=== PATIENT | female | born 1970 | race Caucasian/White ===

== ENCOUNTER 2016-06-27 18:29 | Emergency (ER) ==
[2016-06-27 18:36] VITALS: BP 135/73; TEMP 96.7; BMI 31.1
[2016-06-27] MEDS ORDERED: BENADRYL IM STA (18:48)
[2016-06-27] MEDS ORDERED: PHENERGAN 25 MG/ML VIAL IM STA (18:48)
[2016-06-27] MEDS ORDERED: DILAUDID 2 MG/ML SYRINGE IM STA (18:48)
--- NOTE | 2016-06-27 18:52 | ED.PDOC ---
General ED Provider: Dr. RIKA WILLIAM-ER Chief Complaint: Headache Stated Complaint: ibjorge got a migraine cabezas--it started this am Time Seen by Physician: 18:50 Mode of Arrival: Walk-In Information Source: Patient, Family Exam Limitations: No limitations Primary Care Provider: JEB KIRK Nursing and Triage Documentation Reviewed and Agree: Yes Neurological Complaint Exam - Headache Complaint/Exam Onset: Gradual Duration: 12hrs Symptoms Are: Still present Timing: Constant Worst Headache Ever: No Initial Severity: Moderate Current Severity: Moderate Location: Diffuse Character: Reports: Dull, Throbbing, Pressure, Typical headache, Migraine Aggravating: Reports: Bright lights Alleviating: Reports: None Associated Signs and Symptoms: Reports: Nausea, Vomiting Related History: Reports: Similar episode. Denies: Recent trauma, Remote trauma Related Surgical History: Reports: None SAH Risk Factors: Reports: None Meningitis Risk Factors: Reports: None Temporal Arteritis Risk Factors: Reports: Female, Normal Head CT Within Last 12 Months: Yes Fundoscopic Exam: Present: Normal Findings Papilledema Present: No Temporal Artery Tenderness: Present: None Sinus Tenderness: Present: None TMJ Tenderness: Present: None Glascow Coma Scale (see protocol): 15 Meningeal Signs Positive: No Pain on Passive Flexion-Positive Kernig's: No ROM Limited In: No Limitiations Focal Weakness: Present: None Focal Sensory Loss: Present: None Gait: Normal Nystagmus Present: No Gag Reflex Present: Yes [id number]: Normal Findings Romberg Test Positive: No Babinski Sign: Negative Right, Negative Left Heel to Toe Normal: Yes Differential Diagnoses: Migraine Review of Systems - Review Of Systems Constitutional: Reports: No symptoms Eyes: Reports: No symptoms Ears, Nose, Mouth, Throat: Reports: No symptoms Respiratory: Reports: No symptoms Cardiac: Reports: No symptoms GI: Reports: No symptoms : Reports: No symptoms Musculoskeletal: Reports: No symptoms Skin: Reports: No symptoms Neurological: Reports: Headache Endocrine: Reports: No symptoms Hematologic/Lymphatic: Reports: No symptoms All Other Systems: Reviewed and Negative Past Medical History - Past Medical History Previously Healthy: No Endocrine: Reports: Hypothyroid Cardiovascular: Reports: Hypertension Respiratory: Reports: COPD, Asthma Hematological: Reports: None Gastrointestinal: Reports: GERD (nexium ), Pancreatitis (stents with pancreatitis-chronic pancreatitis) Genitourinary: Reports: None Neuro/Psych: Reports: Migraine, Anxiety. Denies: Depression (fluoxetine) Musculoskeletal: Reports: Back Pain, Other (soma phenergan) Cancer: Reports: None Last Menstrual Period: 2009 Other Pertinent Past Medical History: Chronic back pain ,intrathecal pain pump and removal - Surgical History General Surgical History: Reports: Hysterectomy, , Cholecystectomy, Orthopedic (bilat. feet surg), Other (stents with pancreatitis-chronic pancreatitis) - Family History Family History: Reports: None - Social History Smoking Status: Never smoker Hx Substance Use: No Alcohol Screening: Occasionally Lives: With family - Immunizations Tetanus Shot up to Date: Yes Physical Exam - Physical Exam Appearance: Well-appearing, No pain distress, Well-nourished Eyes: PAULINO ENT: Ears normal Neck: Supple Respiratory: Airway patent, Breath sounds clear, Breath sounds equal, Respirations nonlabored Cardiovascular: RRR GI/: Soft, Nontender, No masses, Bowel sounds normal, No Organomegaly Musculoskeletal: Normal strength, ROM intact, No edema, No calf tenderness Skin: Warm, Dry, Normal color Neurological: Sensation intact, Alert, Oriented Psychiatric: Affect appropriate Re-Evaluation - Re-Evaluation Time of Re-Evaluation: 19:15 Status: Unchanged Vital Signs Stable: Yes Pain Level: 1 Appearance: NAD Lungs: Clear Skin: Warm and Dry Neuro: Alert and Oriented X3 CV: RRR Critical Care Note - Critical Care Note Total Time (mins): 0 Course - Course Orders, Labs, Meds: Orders Category Date Time Status Diphenhydramine Inj [Benadryl] MEDS 06/27/16 18:48 Stat 25 mg IM ONCE STA Hydromorphone HCl/Pf [Dilaudid 2 mg/ml Syringe] MEDS 06/27/16 18:48 Stat 2 mg IM ONCE STA Promethazine HCl [Phenergan 25 mg/ml Vial] MEDS 06/27/16 18:48 Stat 25 mg IM ONCE STA Medications Generic Name Dose Route Start Last Admin Trade Name Freq PRN Reason Stop Dose Admin Diphenhydramine HCl 25 mg 06/27/16 18:48 Benadryl IM 06/27/16 18:49 ONCE STA Hydromorphone HCl 2 mg 06/27/16 18:48 Dilaudid 2 Mg/Ml Syringe IM 06/27/16 18:49 ONCE STA Promethazine HCl 25 mg 06/27/16 18:48 Phenergan 25 Mg/Ml Vial IM 06/27/16 18:49 ONCE STA Vital Signs: Temp Pulse Resp BP Pulse Ox 06/27/16 18:30 96.7 F L 113 H 20 135/73 93 L Departure - Departure Time of Disposition: 18:52 Disposition: HOME SELF-CARE Discharge Problem: Migraine Qualifiers: Migraine type: unspecified Status migrainosus presence: without status migrainosus Intractability: not intractable Qualifier Code: (G43.909) Migraine, unspecified, not intractable, without status migrainosus Instructions: Migraine Headache (ED) Condition: Good Pt referred to PMD for follow-up: Yes Additional Instructions: f/'u with pcp Allergies/Adverse Reactions: Allergies divalproex sodium [From Depakote] Adverse Reaction (Verified 06/27/16 18:38) ketorolac [From Toradol] Adverse Reaction (Verified 06/27/16 18:38) metoclopramide HCl [From Reglan] Adverse Reaction (Verified 06/27/16 18:38) Home Medications: Ambulatory Orders Carisoprodol [Soma] 350 mg PO PRN PRN 02/02/15 Promethazine HCl [Phenergan Tab] 50 mg PO PRN PRN 02/02/15 Amitriptyline HCl [Elavil] 100 mg PO DAILY 06/27/16 Disposition Discussed With: Patient, Family
== END 2016-06-27 19:29 | disposition home or self-care (01) ==
LOC: ED 18:29
DX: G43.909 Migraine, unspecified, not intractable, without status migrainosus (principal)
CPT/HCPCS: 96372; 99282; 99283

== ENCOUNTER 2016-07-19 12:53 | Emergency (ER) ==
[2016-07-19 12:59] VITALS: BP 128/95; TEMP 97.6; BMI 30.7
[2016-07-19] MEDS ORDERED: BENADRYL IM STA (13:08)
[2016-07-19] MEDS ORDERED: PHENERGAN 25 MG/ML VIAL IM STA (13:08)
[2016-07-19] MEDS ORDERED: DILAUDID 2 MG/ML SYRINGE IM STA (13:08)
--- NOTE | 2016-07-19 13:12 | ED.PDOC ---
General ED Provider: Dr. RIKA WILLIAM-ER Chief Complaint: Headache Stated Complaint: george got a migraine Time Seen by Physician: 12:55 Mode of Arrival: Walk-In Information Source: Patient, Family Exam Limitations: No limitations Primary Care Provider: JEB KIRK Nursing and Triage Documentation Reviewed and Agree: Yes Neurological Complaint Exam - Headache Complaint/Exam Onset: Gradual Duration: several hours Symptoms Are: Still present Timing: Constant Episodes Lasting: Hours Worst Headache Ever: No Initial Severity: Mild Current Severity: Moderate Location: Diffuse Character: Reports: Dull, Throbbing, Pressure, Typical headache, Migraine Aggravating: Reports: Bright lights Alleviating: Reports: None Associated Signs and Symptoms: Reports: Nausea, Vomiting. Denies: Dizziness, Seizure, Sinus pressure, Fever, Neck pain, Neck stiffness, Decreased LOC, Visual changes Related History: Reports: Similar episode Related Surgical History: Reports: None SAH Risk Factors: Reports: None Meningitis Risk Factors: Reports: None SDH Risk Factors: Reports: None Temporal Arteritis Risk Factors: Reports: Female Normal Head CT Within Last 12 Months: Yes Fundoscopic Exam: Present: Normal Findings Papilledema Present: No Temporal Artery Tenderness: Present: None Sinus Tenderness: Present: None TMJ Tenderness: Present: None Glascow Coma Scale (see protocol): 15 Meningeal Signs Positive: No Pain on Passive Flexion-Positive Kernig's: No ROM Limited In: No Limitiations Focal Weakness: Present: None Focal Sensory Loss: Present: None Gait: Normal Nystagmus Present: No Gag Reflex Present: Yes [id number]: Normal Findings Romberg Test Positive: No Babinski Sign: Negative Right, Negative Left Heel to Toe Normal: Yes Differential Diagnoses: Migraine Review of Systems - Review Of Systems Constitutional: Reports: No symptoms Eyes: Reports: No symptoms Ears, Nose, Mouth, Throat: Reports: No symptoms Respiratory: Reports: No symptoms Cardiac: Reports: No symptoms GI: Reports: Nausea, Vomiting : Reports: No symptoms Musculoskeletal: Reports: No symptoms Skin: Reports: No symptoms Neurological: Reports: Headache Endocrine: Reports: No symptoms Hematologic/Lymphatic: Reports: No symptoms All Other Systems: Reviewed and Negative Past Medical History - Past Medical History Previously Healthy: No Endocrine: Reports: Hypothyroid Cardiovascular: Reports: Hypertension Respiratory: Reports: COPD, Asthma Hematological: Reports: None Gastrointestinal: Reports: GERD (nexium ), Pancreatitis (stents with pancreatitis-chronic pancreatitis) Genitourinary: Reports: None Neuro/Psych: Reports: Migraine, Anxiety. Denies: Depression (fluoxetine) Musculoskeletal: Reports: Back Pain, Other (soma phenergan) Cancer: Reports: None Last Menstrual Period: 2009 Other Pertinent Past Medical History: Chronic back pain ,intrathecal pain pump and removal - Surgical History General Surgical History: Reports: Hysterectomy, , Cholecystectomy, Orthopedic (bilat. feet surg), Other (stents with pancreatitis-chronic pancreatitis) - Family History Family History: Reports: None - Social History Smoking Status: Never smoker Hx Substance Use: No Alcohol Screening: Occasionally - Immunizations Tetanus Shot up to Date: Yes Physical Exam - Physical Exam Appearance: Well-appearing Pain Distress: Moderate Eyes: PAULINO, EOMI, Conjunctiva clear ENT: Ears normal, Nose normal, Oropharynx normal Neck: Supple Respiratory: Airway patent, Breath sounds clear, Breath sounds equal, Respirations nonlabored Cardiovascular: RRR, Pulses normal, No rub, No murmur GI/: Soft, Nontender, No masses, Bowel sounds normal, No Organomegaly Musculoskeletal: Normal strength, ROM intact, No edema, No calf tenderness Skin: Warm, Dry, Normal color Neurological: Sensation intact, Motor intact, Reflexes intact, Cranial nerves intact, Alert, Oriented Psychiatric: Affect appropriate, Mood appropriate Re-Evaluation - Re-Evaluation Time of Re-Evaluation: 13:40 Status: Improved Vital Signs Stable: Yes Pain Level: 2 Appearance: NAD Lungs: Clear Skin: Warm and Dry Neuro: Alert and Oriented X3 CV: RRR Critical Care Note - Critical Care Note Total Time (mins): 0 Course - Course Orders, Labs, Meds: Orders Category Date Time Status Diphenhydramine Inj [Benadryl] MEDS 07/19/16 13:08 Discontinued 50 mg IM ONCE STA Hydromorphone HCl/Pf [Dilaudid 2 mg/ml Syringe] MEDS 07/19/16 13:08 Discontinued 2 mg IM ONCE STA Promethazine HCl [Phenergan 25 mg/ml Vial] MEDS 07/19/16 13:08 Discontinued 25 mg IM ONCE STA Medications Discontinued Medications Generic Name Dose Route Start Last Admin Trade Name Freq PRN Reason Stop Dose Admin Diphenhydramine HCl 50 mg 07/19/16 13:08 Benadryl IM 07/19/16 13:09 ONCE STA Hydromorphone HCl 2 mg 07/19/16 13:08 Dilaudid 2 Mg/Ml Syringe IM 07/19/16 13:09 ONCE STA Promethazine HCl 25 mg 07/19/16 13:08 Phenergan 25 Mg/Ml Vial IM 07/19/16 13:09 ONCE STA Vital Signs: Temp Pulse Resp BP Pulse Ox 07/19/16 12:53 97.6 F 96 H 20 128/95 H 96 Departure - Departure Time of Disposition: 13:14 Disposition: HOME SELF-CARE Discharge Problem: Migraine Qualifiers: Migraine type: other Status migrainosus presence: without status migrainosus Intractability: not intractable Qualifier Code: (G43.809) Other migraine, not intractable, without status migrainosus Instructions: Migraine Headache (ED) Condition: Good Pt referred to PMD for follow-up: Yes Additional Instructions: f/u wtih pcp Allergies/Adverse Reactions: Allergies divalproex sodium [From Depakote] Adverse Reaction (Verified 06/27/16 18:38) ketorolac [From Toradol] Adverse Reaction (Verified 06/27/16 18:38) metoclopramide HCl [From Reglan] Adverse Reaction (Verified 06/27/16 18:38) Home Medications: Ambulatory Orders Carisoprodol [Soma] 350 mg PO PRN PRN 02/02/15 Promethazine HCl [Phenergan Tab] 50 mg PO PRN PRN 02/02/15 Amitriptyline HCl [Elavil] 100 mg PO DAILY 06/27/16 Disposition Discussed With: Patient, Family
== END 2016-07-19 14:06 | disposition home or self-care (01) ==
LOC: ED 12:53
DX: G43.809 Other migraine, not intractable, without status migrainosus (principal)
CPT/HCPCS: 96372; 99283

== ENCOUNTER 2016-08-01 20:00 | Emergency (ER) ==
[2016-08-01 20:00] VITALS: BMI 30.7
[2016-08-01 20:04] VITALS: BP 132/89
[2016-08-01 20:08] VITALS: TEMP 97.2
[2016-08-01] MEDS ORDERED: STADOL IM STA (20:37)
[2016-08-01] MEDS ORDERED: PHENERGAN 25 MG/ML VIAL IM STA (20:37)
--- NOTE | 2016-08-01 20:42 | ED.PDOC ---
General ED Provider: Dr. JACE PALAFOX Chief Complaint: Headache Stated Complaint: Patient is a 46 year old female who comes to the ER with Headaches that started this evening. She has had problems sleeping and was seen by her PCP but was not given any thing for headache. She was given Doxepin for insomnia. Feels like her typical Migraine. Time Seen by Physician: 20:41 Mode of Arrival: Walk-In Information Source: Patient Exam Limitations: No limitations Primary Care Provider: JEB KIRK Nursing and Triage Documentation Reviewed and Agree: Yes Neurological Complaint Exam - Headache Complaint/Exam Onset: Gradual Duration: 1 day Symptoms Are: Still present Timing: Constant Worst Headache Ever: No Initial Severity: Moderate Current Severity: Severe Location: Right, Left, Frontal Character: Reports: Dull, Throbbing Aggravating: Reports: Bright lights Alleviating: Reports: None Associated Signs and Symptoms: Denies: Dizziness, Seizure, Nausea, Vomiting, Sinus pressure, Fever, Neck pain, Neck stiffness, Decreased LOC, Visual changes Related History: Reports: Similar episode Related Surgical History: Reports: None SAH Risk Factors: Reports: None Meningitis Risk Factors: Reports: None SDH Risk Factors: Reports: None Temporal Arteritis Risk Factors: Reports: Female, . Denies: Over 60 years old, Polymyalgia Rheumatica Normal Head CT Within Last 12 Months: Yes (1 year ago ) Fundoscopic Exam: Present: Normal Findings Papilledema Present: Yes Temporal Artery Tenderness: Present: None Sinus Tenderness: Present: None TMJ Tenderness: Present: None Glascow Coma Scale (see protocol): 15 Meningeal Signs Positive: No Pain on Passive Flexion-Positive Kernig's: No ROM Limited In: No Limitiations Focal Weakness: Present: None Focal Sensory Loss: Present: None Gait: Normal Nystagmus Present: No Gag Reflex Present: No [id number]: Normal Findings Romberg Test Positive: No Babinski Sign: Negative Right, Negative Left Heel to Toe Normal: No Differential Diagnoses: Migraine, Sinus Headache, Tension Headache, Viral Syndrome Review of Systems - Review Of Systems Constitutional: Reports: No symptoms Eyes: Reports: Pain, Photophobia Ears, Nose, Mouth, Throat: Reports: No symptoms Respiratory: Reports: No symptoms Cardiac: Reports: No symptoms GI: Reports: No symptoms : Reports: No symptoms Musculoskeletal: Reports: No symptoms Skin: Reports: No symptoms Neurological: Reports: Anxiety Endocrine: Reports: No symptoms Hematologic/Lymphatic: Reports: No symptoms All Other Systems: Reviewed and Negative Past Medical History - Past Medical History Previously Healthy: No Endocrine: Reports: Hypothyroid Cardiovascular: Reports: Hypertension Respiratory: Reports: COPD, Asthma Hematological: Reports: None Gastrointestinal: Reports: GERD (nexium ), Pancreatitis (stents with pancreatitis-chronic pancreatitis) Genitourinary: Reports: None Neuro/Psych: Reports: Migraine, Anxiety. Denies: Depression (fluoxetine) Musculoskeletal: Reports: Back Pain, Other (soma phenergan) Cancer: Reports: None Last Menstrual Period: NONE Other Pertinent Past Medical History: Chronic back pain ,intrathecal pain pump and removal - Surgical History General Surgical History: Reports: Hysterectomy, , Cholecystectomy, Orthopedic (bilat. feet surg), Other (stents with pancreatitis-chronic pancreatitis) - Family History Family History: Reports: None - Social History Smoking Status: Never smoker Hx Substance Use: No Alcohol Screening: Occasionally Physical Exam - Physical Exam Appearance: Ill-appearing Pain Distress: Moderate Eyes: PAULINO, EOMI, Conjunctiva clear ENT: Ears normal, Nose normal, Oropharynx normal Neck: Supple Respiratory: Airway patent, Breath sounds clear, Breath sounds equal, Respirations nonlabored Cardiovascular: RRR, Pulses normal, No rub, No murmur GI/: Soft, Nontender, No masses, Bowel sounds normal, No Organomegaly Musculoskeletal: Normal strength, ROM intact, No edema, No calf tenderness Skin: Warm, Dry, Normal color Neurological: Sensation intact, Motor intact, Reflexes intact, Cranial nerves intact, Alert, Oriented Psychiatric: Anxious Re-Evaluation - Re-Evaluation Time of Re-Evaluation: 21:41 Status: Improved Vital Signs Stable: Yes Pain Level: improved Critical Care Note - Critical Care Note Total Time (mins): 0 Course - Course Orders, Labs, Meds: Orders Category Date Time Status Butorphanol Tartrate [Stadol] MEDS 08/01/16 20:37 Discontinued 2 mg IM ONCE STA Promethazine HCl [Phenergan 25 mg/ml Vial] MEDS 08/01/16 20:37 Discontinued 25 mg IM ONCE STA Medications Discontinued Medications Generic Name Dose Route Start Last Admin Trade Name Freq PRN Reason Stop Dose Admin Butorphanol Tartrate 2 mg 08/01/16 20:37 08/01/16 20:48 Stadol IM 08/01/16 20:38 2 mg ONCE STA Administration Promethazine HCl 25 mg 08/01/16 20:37 08/01/16 20:48 Phenergan 25 Mg/Ml Vial IM 08/01/16 20:38 25 mg ONCE STA Administration Vital Signs: Temp Pulse Resp BP Pulse Ox 08/01/16 20:00 97.2 F L 105 H 18 132/89 96 Departure - Departure Time of Disposition: 21:41 Disposition: HOME SELF-CARE Discharge Problem: Headache Migraine Qualifiers: Migraine type: without aura Status migrainosus presence: without status migrainosus Intractability: not intractable Qualifier Code: (G43.009) Migraine without aura, not intractable, without status migrainosus Instructions: Migraine Headache (ED) Condition: Stable Pt referred to PMD for follow-up: Yes Additional Instructions: Push fluids Rest Take your Doxiepine for sleep Follow up with PCP in 3 days Allergies/Adverse Reactions: Allergies divalproex sodium [From Depakote] Adverse Reaction (Verified 08/01/16 20:04) ketorolac [From Toradol] Adverse Reaction (Verified 08/01/16 20:04) metoclopramide HCl [From Reglan] Adverse Reaction (Verified 08/01/16 20:04) Home Medications: Ambulatory Orders Carisoprodol [Soma] 350 mg PO PRN PRN 02/02/15 Promethazine HCl [Phenergan Tab] 50 mg PO PRN PRN 02/02/15 Amitriptyline HCl [Elavil] 100 mg PO DAILY 06/27/16 Doxepin HCl [Sinequan] 25 mg PO BEDTIME 08/01/16 Disposition Discussed With: Patient
== END 2016-08-01 21:50 | disposition home or self-care (01) ==
LOC: ED 20:00
DX: G43.009 Migraine without aura, not intractable, without status migrainosus (principal)
CPT/HCPCS: 96372; 99282

== ENCOUNTER 2016-08-08 05:17 | Emergency (ER) ==
[2016-08-08 05:28] VITALS: TEMP 96.3; BMI 32.3
[2016-08-08] MEDS ORDERED: PHENERGAN 25 MG/ML VIAL IM STA (05:36)
[2016-08-08] MEDS ORDERED: IMITREX SUBCUT STA (05:36)
[2016-08-08] MEDS ORDERED: STADOL IM STA (05:45)
--- NOTE | 2016-08-08 05:49 | ED.PDOC ---
General ED Provider: Dr. JACE PALAFOX Chief Complaint: Headache Stated Complaint: Patient complains of frontal headaches. She was seen last week with similar symtoms given Stadol and phenergen. Has not followed up with Neurology. Has been having difficulty sleeping Was tried on doxepine for sleep which has not helped. Time Seen by Physician: 05:30 Mode of Arrival: Walk-In Information Source: Patient Exam Limitations: No limitations Primary Care Provider: JEB KIRK Nursing and Triage Documentation Reviewed and Agree: Yes Neurological Complaint Exam - Headache Complaint/Exam Onset: Sudden Duration: 5 HOURS Symptoms Are: Still present Timing: Constant Initial Severity: Severe Current Severity: Severe Location: Right, Left, Frontal Character: Reports: Throbbing, Typical headache Aggravating: Reports: Bright lights Associated Signs and Symptoms: Reports: Nausea. Denies: Dizziness, Fever, Neck pain, Neck stiffness, Decreased LOC, Visual changes Related History: Reports: Similar episode SAH Risk Factors: Reports: None Meningitis Risk Factors: Reports: None SDH Risk Factors: Reports: None Temporal Arteritis Risk Factors: Reports: Female, . Denies: Over 60 years old, Polymyalgia Rheumatica Normal Head CT Within Last 12 Months: Yes Fundoscopic Exam: Present: Normal Findings Papilledema Present: No Temporal Artery Tenderness: Present: None Sinus Tenderness: Present: None TMJ Tenderness: Present: None Glascow Coma Scale (see protocol): 15 Meningeal Signs Positive: No Focal Weakness: Present: None Focal Sensory Loss: Present: None Gait: Normal Nystagmus Present: No Gag Reflex Present: No [id number]: Normal Findings Romberg Test Positive: No Babinski Sign: Negative Right, Negative Left Heel to Toe Normal: No Head Picture: 1 - HEADACHE Differential Diagnoses: Migraine Review of Systems - Review Of Systems Constitutional: Reports: Loss of appetite Eyes: Reports: Photophobia Ears, Nose, Mouth, Throat: Reports: No symptoms Respiratory: Reports: No symptoms Cardiac: Reports: No symptoms GI: Reports: Nausea : Reports: No symptoms Musculoskeletal: Reports: No symptoms Skin: Reports: No symptoms Neurological: Reports: Anxiety, Headache Endocrine: Reports: No symptoms Hematologic/Lymphatic: Reports: No symptoms All Other Systems: Reviewed and Negative Past Medical History - Past Medical History Previously Healthy: No Endocrine: Reports: Hypothyroid Cardiovascular: Reports: Hypertension Respiratory: Reports: COPD, Asthma Hematological: Reports: None Gastrointestinal: Reports: GERD (nexium ), Pancreatitis (stents with pancreatitis-chronic pancreatitis) Genitourinary: Reports: None Neuro/Psych: Reports: Migraine, Anxiety. Denies: Depression (fluoxetine) Musculoskeletal: Reports: Back Pain, Other (soma phenergan) Cancer: Reports: None Last Menstrual Period: PT HAS HAD HYSTERECTOMY Other Pertinent Past Medical History: Chronic back pain ,intrathecal pain pump and removal - Surgical History General Surgical History: Reports: Hysterectomy, , Cholecystectomy, Orthopedic (bilat. feet surg), Other (stents with pancreatitis-chronic pancreatitis) - Family History Family History: Reports: None - Social History Smoking Status: Never smoker Hx Substance Use: No Alcohol Screening: Occasionally - Immunizations Tetanus Shot up to Date: Yes Physical Exam - Physical Exam Appearance: Ill-appearing, Obese Ill-appearing: Moderate Pain Distress: Severe Eyes: PAULINO, EOMI, Conjunctiva clear ENT: Ears normal Neck: Supple Respiratory: Airway patent, Breath sounds clear, Breath sounds equal, Respirations nonlabored Cardiovascular: RRR, Pulses normal, No rub, No murmur Skin: Warm Neurological: Sensation intact, Motor intact, Reflexes intact, Cranial nerves intact, Alert, Oriented Psychiatric: Anxious Critical Care Note - Critical Care Note Total Time (mins): 0 Course - Course Orders, Labs, Meds: Orders Category Date Time Status Butorphanol Tartrate [Stadol] MEDS 08/08/16 05:45 Stat 2 mg IM ONCE STA Promethazine HCl [Phenergan 25 mg/ml Vial] MEDS 08/08/16 05:36 Stat 25 mg IM ONCE STA Medications Discontinued Medications Generic Name Dose Route Start Last Admin Trade Name Freq PRN Reason Stop Dose Admin Butorphanol Tartrate 2 mg 08/08/16 05:45 Stadol IM 08/08/16 05:46 ONCE STA Promethazine HCl 25 mg 08/08/16 05:36 Phenergan 25 Mg/Ml Vial IM 08/08/16 05:37 ONCE STA Vital Signs: Temp Pulse Resp BP Pulse Ox 08/08/16 05:19 96.3 F L 95 H 18 142/93 H 95 Departure - Departure Time of Disposition: 06:00 Disposition: HOME SELF-CARE Discharge Problem: Migraine Qualifiers: Migraine type: without aura Status migrainosus presence: without status migrainosus Intractability: not intractable Qualifier Code: (G43.009) Migraine without aura, not intractable, without status migrainosus Instructions: Migraine Headache (ED) Condition: Fair Pt referred to PMD for follow-up: Yes Additional Instructions: FOLLOW UP WITH YOUR pcp FOR NEUROLOGY CONSULT TAKE MEDICATIONS PRESCRIBED. Prescriptions: Sumatriptan Succinate [Imitrex] 50 mg PO TID PRN #10 tablet PRN Reason: HEADACHE Allergies/Adverse Reactions: Allergies divalproex sodium [From Depakote] Adverse Reaction (Verified 08/08/16 05:27) ketorolac [From Toradol] Adverse Reaction (Verified 08/08/16 05:27) metoclopramide HCl [From Reglan] Adverse Reaction (Verified 08/08/16 05:27) Home Medications: Ambulatory Orders Carisoprodol [Soma] 350 mg PO PRN PRN 02/02/15 Promethazine HCl [Phenergan Tab] 50 mg PO PRN PRN 02/02/15 Amitriptyline HCl [Elavil] 100 mg PO DAILY 06/27/16 Doxepin HCl [Sinequan] 25 mg PO BEDTIME 08/01/16 Sumatriptan Succinate [Imitrex] 50 mg PO TID PRN #10 tablet 08/08/16 Disposition Discussed With: Patient, Family
[2016-08-08 06:13] VITALS: BP 105/67
== END 2016-08-08 06:13 | disposition home or self-care (01) ==
LOC: ED 05:17
DX: G43.009 Migraine without aura, not intractable, without status migrainosus (principal)
CPT/HCPCS: 96372; 99283

== ENCOUNTER 2016-08-22 11:46 | Emergency (ER) ==
[2016-08-22 11:46] VITALS: BMI 32.3
[2016-08-22 11:50] VITALS: BP 154/104; TEMP 96.9
--- NOTE | 2016-08-22 12:52 | ED.PDOC ---
General ED Provider: Dr. ROBBIE DWYER JR Chief Complaint: Headache Stated Complaint: THIS AM AROUND 0800 headache 96.9 88 20 94% 154/104 03/12 frontal -medications helped last time feels that she has tried all preventatives no nerologist discussed ketamine ablation- will need neurologist states headache usual horrible pain no different does not want CT head. Butorphanol 2 mg Stadol,Phenergan 25 Mg: Migraine Headache (ED) pcp FOR NEUROLOGY [Imitrex] 50 mg PO TID PRN #10 tablet. 08/01/16 2 mg Stadol, Phenergan 25 Mg. 07-19-16 benadryl 50 dilaudid 2 phenergan 25 migraine Time Seen by Physician: 13:03 Mode of Arrival: Walk-In Information Source: Patient, Family Exam Limitations: No limitations Primary Care Provider: JEB KIRK Nursing and Triage Documentation Reviewed and Agree: No Review of Systems - Review Of Systems Constitutional: Reports: Malaise Eyes: Reports: Photophobia Respiratory: Reports: No symptoms Cardiac: Reports: No symptoms GI: Reports: No symptoms : Reports: No symptoms Musculoskeletal: Reports: No symptoms Skin: Reports: No symptoms Neurological: Reports: Headache Endocrine: Reports: No symptoms Hematologic/Lymphatic: Reports: No symptoms All Other Systems: Other Past Medical History - Past Medical History Previously Healthy: No Endocrine: Reports: Hypothyroid Cardiovascular: Reports: Hypertension Respiratory: Reports: COPD, Asthma Hematological: Reports: None Gastrointestinal: Reports: GERD (nexium ), Pancreatitis (stents with pancreatitis-chronic pancreatitis) Genitourinary: Reports: None Neuro/Psych: Reports: Migraine, Anxiety. Denies: Depression (fluoxetine) Musculoskeletal: Reports: Back Pain, Other (soma phenergan) Cancer: Reports: None Last Menstrual Period: 2009 Other Pertinent Past Medical History: Chronic back pain ,intrathecal pain pump and removal - Surgical History General Surgical History: Reports: Hysterectomy, , Cholecystectomy, Orthopedic (bilat. feet surg), Other (stents with pancreatitis-chronic pancreatitis) - Family History Family History: Reports: None - Social History Smoking Status: Never smoker Hx Substance Use: No Alcohol Screening: Occasionally - Immunizations Tetanus Shot up to Date: Yes Physical Exam - Physical Exam Appearance: Well-appearing, Obese Ill-appearing: Moderate Pain Distress: Severe Eyes: PAULINO, EOMI, Conjunctiva clear ENT: Ears normal, Nose normal, Oropharynx normal Neck: Supple Respiratory: Airway patent, Breath sounds clear, Breath sounds equal, Respirations nonlabored Cardiovascular: RRR, Pulses normal, No rub, No murmur GI/: Soft, Nontender, No masses, Bowel sounds normal, No Organomegaly Musculoskeletal: Normal strength, ROM intact, No edema, No calf tenderness Skin: Warm, Dry, Normal color Neurological: Sensation intact, Motor intact, Reflexes intact, Cranial nerves intact, Alert, Oriented Psychiatric: Affect appropriate Critical Care Note - Critical Care Note Total Time (mins): 0 Course - Course Orders, Labs, Meds: Orders Category Date Time Status Butorphanol Tartrate [Stadol] MEDS 08/22/16 12:56 Discontinued 2 mg IM ONCE STA Promethazine HCl [Phenergan 25 mg/ml Vial] MEDS 08/22/16 12:56 Discontinued 25 mg IM ONCE STA CT HEAD W/O CONTRAST Stat RADS 08/22/16 12:57 Stop Req Medications Discontinued Medications Generic Name Dose Route Start Last Admin Trade Name Freq PRN Reason Stop Dose Admin Butorphanol Tartrate 2 mg 08/22/16 12:56 08/22/16 13:05 Stadol IM 08/22/16 12:57 2 mg ONCE STA Administration Promethazine HCl 25 mg 08/22/16 12:56 08/22/16 13:05 Phenergan 25 Mg/Ml Vial IM 08/22/16 12:57 25 mg ONCE STA Administration Vital Signs: Temp Pulse Resp BP Pulse Ox 08/22/16 11:46 96.9 F L 88 20 154/104 H 94 L Departure - Departure Time of Disposition: 13:44 Disposition: HOME SELF-CARE Discharge Problem: Headache, Migraine Instructions: Acute Headache (ED) Condition: Good Pt referred to PMD for follow-up: Yes Additional Instructions: return if unable to keep fluids down, if symptoms are worse no CT of the brain found at [facility] need to define if any serious changes present in brain CT Brain is recommended no neurologist - will need neurologist ketamine ablation has been reported to be helpful for intractable migraines [facility] neurology takes Medicaid- you will need a referral from your physician [phone] fax [phone] Allergies/Adverse Reactions: Allergies divalproex sodium [From Depakote] Adverse Reaction (Verified 08/08/16 05:27) ketorolac [From Toradol] Adverse Reaction (Verified 08/08/16 05:27) metoclopramide HCl [From Reglan] Adverse Reaction (Verified 08/08/16 05:27) Home Medications: Ambulatory Orders Carisoprodol [Soma] 350 mg PO PRN PRN 02/02/15 Promethazine HCl [Phenergan Tab] 50 mg PO PRN PRN 02/02/15 Amitriptyline HCl [Elavil] 100 mg PO DAILY 06/27/16 Doxepin HCl [Sinequan] 25 mg PO BEDTIME 08/01/16 Sumatriptan Succinate [Imitrex] 50 mg PO TID PRN #10 tablet 08/08/16
[2016-08-22] MEDS ORDERED: PHENERGAN 25 MG/ML VIAL IM STA (12:56)
[2016-08-22] MEDS ORDERED: STADOL IM STA (12:56)
== END 2016-08-22 13:55 | disposition home or self-care (01) ==
LOC: ED 11:46
DX: G43.909 Migraine, unspecified, not intractable, without status migrainosus (principal)
CPT/HCPCS: 96372; 99283

== ENCOUNTER 2016-09-20 12:12 | Emergency (ER) ==
[2016-09-20 12:22] VITALS: BP 128/91; TEMP 97.8; BMI 33.0
[2016-09-20] MEDS ORDERED: ZOFRAN 4 MG/2 ML IM STA (12:29)
[2016-09-20] MEDS ORDERED: MORPHINE 4 MG/ML SYRINGE IM STA (12:29)
[2016-09-20] MEDS ORDERED: PHENERGAN 25 MG/ML VIAL IM STA (12:37)
[2016-09-20] MEDS ORDERED: STADOL IM STA (12:37)
--- NOTE | 2016-09-20 12:49 | ED.PDOC ---
General ED Provider: Dr. JOE LIU Chief Complaint: Headache Stated Complaint: headache Time Seen by Physician: 12:47 (seen with katherine) Mode of Arrival: Walk-In Information Source: Patient Exam Limitations: No limitations Primary Care Provider: JEB KIRK Nursing and Triage Documentation Reviewed and Agree: Yes Review of Systems - Review Of Systems Constitutional: Reports: No symptoms Eyes: Reports: No symptoms Ears, Nose, Mouth, Throat: Reports: No symptoms Respiratory: Reports: No symptoms Cardiac: Reports: No symptoms GI: Reports: No symptoms : Reports: No symptoms Musculoskeletal: Reports: No symptoms Skin: Reports: No symptoms Neurological: Reports: Headache Endocrine: Reports: No symptoms Hematologic/Lymphatic: Reports: No symptoms All Other Systems: Reviewed and Negative Past Medical History - Past Medical History Previously Healthy: No Endocrine: Reports: Hypothyroid Cardiovascular: Reports: Hypertension Respiratory: Reports: COPD, Asthma Hematological: Reports: None Gastrointestinal: Reports: GERD (nexium ), Pancreatitis (stents with pancreatitis-chronic pancreatitis) Genitourinary: Reports: None Neuro/Psych: Reports: Migraine, Anxiety. Denies: Depression (fluoxetine) Musculoskeletal: Reports: Back Pain, Other (soma phenergan) Cancer: Reports: None Last Menstrual Period: NA Other Pertinent Past Medical History: Chronic back pain ,intrathecal pain pump and removal - Surgical History General Surgical History: Reports: Hysterectomy, , Cholecystectomy, Orthopedic (bilat. feet surg), Other (stents with pancreatitis-chronic pancreatitis) - Family History Family History: Reports: None - Social History Smoking Status: Never smoker Hx Substance Use: No Alcohol Screening: Occasionally Physical Exam - Physical Exam Appearance: Well-appearing, No pain distress, Well-nourished Eyes: PAULINO, EOMI, Conjunctiva clear ENT: Ears normal, Nose normal, Oropharynx normal Respiratory: Airway patent, Breath sounds clear, Breath sounds equal, Respirations nonlabored Cardiovascular: RRR, Pulses normal, No rub, No murmur GI/: Soft, Nontender, No masses, Bowel sounds normal, No Organomegaly Musculoskeletal: Normal strength, ROM intact, No edema, No calf tenderness Skin: Warm, Dry, Normal color Neurological: Sensation intact, Motor intact, Reflexes intact, Cranial nerves intact, Alert, Oriented Psychiatric: Affect appropriate, Mood appropriate Critical Care Note - Critical Care Note Total Time (mins): 0 Course - Course Orders, Labs, Meds: Orders Category Date Time Status Butorphanol Tartrate [Stadol] MEDS 09/20/16 12:37 Discontinued 2 mg IM ONCE STA Morphine Sulfate [Morphine 4 mg/ml Syringe] MEDS 09/20/16 12:29 Discontinued 4 mg IM ONCE STA Ondansetron HCl/Pf [Zofran 4 mg/2 ml] MEDS 09/20/16 12:29 Discontinued 4 mg IM ONCE STA Promethazine HCl [Phenergan 25 mg/ml Vial] MEDS 09/20/16 12:37 Discontinued 25 mg IM ONCE STA CT HEAD W/O CONTRAST Stat RADS 09/20/16 12:29 Ordered Medications Discontinued Medications Generic Name Dose Route Start Last Admin Trade Name Freq PRN Reason Stop Dose Admin Butorphanol Tartrate 2 mg 09/20/16 12:37 Stadol IM 09/20/16 12:38 ONCE STA Morphine Sulfate 4 mg 09/20/16 12:29 Morphine 4 Mg/Ml Syringe IM 09/20/16 12:30 ONCE STA Ondansetron HCl 4 mg 09/20/16 12:29 Zofran 4 Mg/2 Ml IM 09/20/16 12:30 ONCE STA Promethazine HCl 25 mg 09/20/16 12:37 Phenergan 25 Mg/Ml Vial IM 09/20/16 12:38 ONCE STA Vital Signs: Temp Pulse Resp BP Pulse Ox 09/20/16 12:18 97.8 F 90 16 128/91 H 94 L Departure - Departure Time of Disposition: 14:00 Disposition: HOME SELF-CARE Discharge Problem: Headache, Migraine Instructions: Migraine Headache (ED), Acute Headache (ED) Condition: Good Pt referred to PMD for follow-up: No Allergies/Adverse Reactions: Allergies divalproex sodium [From Depakote] Adverse Reaction (Verified 09/20/16 12:16) ketorolac [From Toradol] Adverse Reaction (Verified 09/20/16 12:16) metoclopramide HCl [From Reglan] Adverse Reaction (Verified 09/20/16 12:16) Home Medications: Ambulatory Orders Carisoprodol [Soma] 350 mg PO PRN PRN 02/02/15 Promethazine HCl [Phenergan Tab] 50 mg PO PRN PRN 02/02/15 Amitriptyline HCl [Elavil] 100 mg PO DAILY 06/27/16 Doxepin HCl [Sinequan] 25 mg PO BEDTIME 08/01/16 Sumatriptan Succinate [Imitrex] 50 mg PO TID PRN #10 tablet 08/08/16
--- NOTE | 2016-09-20 13:21 | CT ---
Exam: CT exam of the brain without intravenous contrast. Comparison: 08/10/2015. Reason for exam: Pain. FINDINGS: No acute intracranial hemorrhage, mass effect, ventricular dilatation, or territorial inf arction. The quadrigeminal and ambient cisterns are patent. There is no extraaxial fluid collectio n. The calvarium is intact without displaced fracture. The paranasal sinuses and mastoid air cells are unopacified. There is incidental note of plagiocephaly unchanged from the prior exam. Impression: No acute intracranial findings.
== END 2016-09-20 13:56 | disposition home or self-care (01) ==
LOC: ED 12:12
DX: G43.909 Migraine, unspecified, not intractable, without status migrainosus (principal)
CPT/HCPCS: 96372; 99283

== ENCOUNTER 2016-09-23 19:20 | Emergency (ER) ==
[2016-09-23 19:20] VITALS: BMI 33.0
[2016-09-23 19:26] VITALS: BP 128/72; TEMP 97.2
[2016-09-23] MEDS ORDERED: PHENERGAN 25 MG/ML VIAL IM STA (19:34)
[2016-09-23] MEDS ORDERED: STADOL IM STA (19:34)
--- NOTE | 2016-09-23 19:38 | ED.PDOC ---
General ED Provider: Dr. RIKA WILLIAM-ER Chief Complaint: Headache Stated Complaint: george got a migraine cabezas Time Seen by Physician: 19:36 Mode of Arrival: Walk-In Information Source: Patient Exam Limitations: No limitations Primary Care Provider: JEB KIRK Nursing and Triage Documentation Reviewed and Agree: Yes Neurological Complaint Exam - Headache Complaint/Exam Onset: Gradual Duration: several hours Symptoms Are: Still present Timing: Constant Episodes Lasting: Hours Worst Headache Ever: No Initial Severity: Mild Current Severity: Moderate Location: Diffuse Character: Reports: Dull, Throbbing, Typical headache, Migraine Aggravating: Reports: Bright lights Alleviating: Reports: None Associated Signs and Symptoms: Reports: Nausea. Denies: Dizziness, Seizure, Vomiting, Sinus pressure, Fever, Neck pain, Neck stiffness, Decreased LOC, Visual changes Related History: Reports: Similar episode. Denies: Recent trauma, Remote trauma Related Surgical History: Reports: None SAH Risk Factors: Reports: None Meningitis Risk Factors: Reports: None SDH Risk Factors: Reports: None Temporal Arteritis Risk Factors: Reports: None, Female, Normal Head CT Within Last 12 Months: Yes Fundoscopic Exam: Present: Normal Findings Papilledema Present: No Temporal Artery Tenderness: Present: None Sinus Tenderness: Present: None TMJ Tenderness: Present: None Glascow Coma Scale (see protocol): 15 Meningeal Signs Positive: No Pain on Passive Flexion-Positive Kernig's: No ROM Limited In: No Limitiations Focal Weakness: Present: None Focal Sensory Loss: Present: None Gait: Normal Nystagmus Present: No Gag Reflex Present: Yes [id number]: Normal Findings Romberg Test Positive: No Babinski Sign: Negative Right, Negative Left Heel to Toe Normal: Yes Differential Diagnoses: Migraine Review of Systems - Review Of Systems Constitutional: Reports: No symptoms Eyes: Reports: No symptoms Ears, Nose, Mouth, Throat: Reports: No symptoms Respiratory: Reports: No symptoms Cardiac: Reports: No symptoms GI: Reports: Nausea : Reports: No symptoms Musculoskeletal: Reports: No symptoms Skin: Reports: No symptoms Neurological: Reports: No symptoms Endocrine: Reports: No symptoms Hematologic/Lymphatic: Reports: No symptoms All Other Systems: Reviewed and Negative Past Medical History - Past Medical History Previously Healthy: No Endocrine: Reports: Hypothyroid Cardiovascular: Reports: Hypertension Respiratory: Reports: COPD, Asthma Hematological: Reports: None Gastrointestinal: Reports: GERD (nexium ), Pancreatitis (stents with pancreatitis-chronic pancreatitis) Genitourinary: Reports: None Neuro/Psych: Reports: Migraine, Anxiety. Denies: Depression (fluoxetine) Musculoskeletal: Reports: Back Pain, Other (soma phenergan) Cancer: Reports: None Last Menstrual Period: PT HAS HAD A HYSTERECTOMY Other Pertinent Past Medical History: Chronic back pain ,intrathecal pain pump and removal - Surgical History General Surgical History: Reports: Hysterectomy, , Cholecystectomy, Orthopedic (bilat. feet surg), Other (stents with pancreatitis-chronic pancreatitis) - Family History Family History: Reports: None - Social History Smoking Status: Never smoker Hx Substance Use: No Alcohol Screening: Occasionally Lives: With family - Immunizations Tetanus Shot up to Date: Yes Physical Exam - Physical Exam Appearance: Well-appearing, No pain distress, Well-nourished Pain Distress: Moderate Eyes: PAULINO, EOMI, Conjunctiva clear ENT: Ears normal, Nose normal, Oropharynx normal Neck: Supple Respiratory: Airway patent Cardiovascular: RRR, Pulses normal, No rub, No murmur GI/: Soft, Nontender, No masses, Bowel sounds normal, No Organomegaly Musculoskeletal: Normal strength, ROM intact, No edema, No calf tenderness Skin: Warm Neurological: Sensation intact Psychiatric: Affect appropriate, Mood appropriate Re-Evaluation - Re-Evaluation Time of Re-Evaluation: 20:00 Status: Improved Vital Signs Stable: Yes Pain Level: 1 Appearance: NAD Lungs: Clear Skin: Warm and Dry Neuro: Alert and Oriented X3 CV: RRR Critical Care Note - Critical Care Note Total Time (mins): 0 Course - Course Orders, Labs, Meds: Orders Category Date Time Status Butorphanol Tartrate [Stadol] MEDS 09/23/16 19:34 Discontinued 2 mg IM ONCE STA Promethazine HCl [Phenergan 25 mg/ml Vial] MEDS 09/23/16 19:34 Discontinued 25 mg IM ONCE STA Medications Discontinued Medications Generic Name Dose Route Start Last Admin Trade Name Sharathq PRN Reason Stop Dose Admin Butorphanol Tartrate 2 mg 09/23/16 19:34 Stadol IM 09/23/16 19:35 ONCE STA Promethazine HCl 25 mg 09/23/16 19:34 Phenergan 25 Mg/Ml Vial IM 09/23/16 19:35 ONCE STA Vital Signs: Temp Pulse Resp BP Pulse Ox 09/23/16 19:21 97.2 F L 106 H 20 128/72 96 Departure - Departure Time of Disposition: 19:38 Disposition: HOME SELF-CARE Discharge Problem: Migraine Qualifiers: Migraine type: without aura Status migrainosus presence: without status migrainosus Intractability: not intractable Qualifier Code: (G43.009) Migraine without aura, not intractable, without status migrainosus Instructions: Migraine Headache (ED) Condition: Good Pt referred to PMD for follow-up: Yes Additional Instructions: f/u with pcp Allergies/Adverse Reactions: Allergies divalproex sodium [From Depakote] Adverse Reaction (Verified 09/23/16 19:26) ketorolac [From Toradol] Adverse Reaction (Verified 09/23/16 19:26) metoclopramide HCl [From Reglan] Adverse Reaction (Verified 09/23/16 19:26) Home Medications: Ambulatory Orders Carisoprodol [Soma] 350 mg PO PRN PRN 02/02/15 Promethazine HCl [Phenergan Tab] 50 mg PO PRN PRN 02/02/15 Amitriptyline HCl [Elavil] 100 mg PO DAILY 06/27/16 Doxepin HCl [Sinequan] 25 mg PO BEDTIME 08/01/16 Sumatriptan Succinate [Imitrex] 50 mg PO TID PRN #10 tablet 08/08/16 Disposition Discussed With: Patient, Family
== END 2016-09-23 20:20 | disposition home or self-care (01) ==
LOC: ED 19:20
DX: G43.009 Migraine without aura, not intractable, without status migrainosus (principal)
CPT/HCPCS: 96372; 99283

== ENCOUNTER 2016-10-14 08:48 | Emergency (ER) ==
[2016-10-14 08:48] VITALS: BMI 33.0
[2016-10-14 08:59] VITALS: BP 145/87; TEMP 96
[2016-10-14] MEDS ORDERED: PHENERGAN 25 MG/ML VIAL IM STA (09:07)
[2016-10-14] MEDS ORDERED: STADOL IM STA (09:07)
--- NOTE | 2016-10-14 09:10 | ED.PDOC ---
General ED Provider: Dr. YAYA STUBBS Chief Complaint: Headache Stated Complaint: typical migrane, home meds not helping Time Seen by Physician: 09:08 Mode of Arrival: Walk-In Information Source: Patient Primary Care Provider: JEB KIRK Nursing and Triage Documentation Reviewed and Agree: Yes Neurological Complaint Exam - Headache Complaint/Exam Onset: Gradual Symptoms Are: Still present Timing: Constant Episodes Lasting: Minutes Worst Headache Ever: No Initial Severity: Severe Current Severity: Severe Location: Right, Left, Frontal Character: Reports: Dull, Throbbing Aggravating: Reports: None Alleviating: Reports: None Associated Signs and Symptoms: Denies: Dizziness, Seizure, Nausea, Vomiting, Sinus pressure, Fever, Neck pain, Neck stiffness, Decreased LOC, Visual changes Related Surgical History: Reports: None SAH Risk Factors: Reports: None Meningitis Risk Factors: Reports: None SDH Risk Factors: Reports: None Temporal Arteritis Risk Factors: Reports: None Normal Head CT Within Last 12 Months: Yes Fundoscopic Exam: Present: Normal Findings Papilledema Present: No Temporal Artery Tenderness: Present: None Sinus Tenderness: Present: None TMJ Tenderness: Present: None Meningeal Signs Positive: No Pain on Passive Flexion-Positive Kernig's: No ROM Limited In: No Limitiations Focal Weakness: Present: None Focal Sensory Loss: Present: None Gait: Normal Nystagmus Present: No Gag Reflex Present: Yes [id number]: Normal Findings Babinski Sign: Negative Right, Negative Left Differential Diagnoses: Migraine Review of Systems - Review Of Systems Constitutional: Reports: No symptoms Eyes: Reports: No symptoms Ears, Nose, Mouth, Throat: Reports: No symptoms Respiratory: Reports: No symptoms Cardiac: Reports: No symptoms GI: Reports: No symptoms : Reports: No symptoms Musculoskeletal: Reports: No symptoms Skin: Reports: No symptoms Neurological: Reports: Headache Endocrine: Reports: No symptoms Hematologic/Lymphatic: Reports: No symptoms All Other Systems: Reviewed and Negative Past Medical History - Past Medical History Previously Healthy: No Endocrine: Reports: Hypothyroid Cardiovascular: Reports: Hypertension Respiratory: Reports: COPD, Asthma Hematological: Reports: None Gastrointestinal: Reports: GERD (nexium ), Pancreatitis (stents with pancreatitis-chronic pancreatitis) Genitourinary: Reports: None Neuro/Psych: Reports: Migraine, Anxiety. Denies: Depression (fluoxetine) Musculoskeletal: Reports: Back Pain, Other (soma phenergan) Cancer: Reports: None Last Menstrual Period: N/A Other Pertinent Past Medical History: Chronic back pain ,intrathecal pain pump and removal - Surgical History General Surgical History: Reports: Hysterectomy, , Cholecystectomy, Orthopedic (bilat. feet surg), Other (stents with pancreatitis-chronic pancreatitis) - Family History Family History: Reports: None - Social History Smoking Status: Never smoker Hx Substance Use: No Alcohol Screening: Occasionally - Immunizations Tetanus Shot up to Date: No Physical Exam - Physical Exam Appearance: Ill-appearing, Obese Pain Distress: Moderate Eyes: EOMI ENT: Ears normal, Nose normal, Oropharynx normal Respiratory: Airway patent, Breath sounds clear, Breath sounds equal, Respirations nonlabored Cardiovascular: RRR, Pulses normal, No rub, No murmur GI/: Soft, Nontender, No masses, Bowel sounds normal, No Organomegaly Musculoskeletal: Normal strength, ROM intact, No edema, No calf tenderness Skin: Warm, Dry, Normal color Neurological: Sensation intact, Motor intact, Reflexes intact, Cranial nerves intact, Alert, Oriented Psychiatric: Affect appropriate, Mood appropriate Critical Care Note - Critical Care Note Total Time (mins): 0 Course - Course Orders, Labs, Meds: Orders Category Date Time Status Butorphanol Tartrate [Stadol] MEDS 10/14/16 09:07 Stat 2 mg IM ONCE STA Promethazine HCl [Phenergan 25 mg/ml Vial] MEDS 10/14/16 09:07 Stat 25 mg IM ONCE STA Medications Discontinued Medications Generic Name Dose Route Start Last Admin Trade Name Freq PRN Reason Stop Dose Admin Butorphanol Tartrate 2 mg 10/14/16 09:07 Stadol IM 10/14/16 09:08 ONCE STA Promethazine HCl 25 mg 10/14/16 09:07 Phenergan 25 Mg/Ml Vial IM 10/14/16 09:08 ONCE STA Vital Signs: Temp Pulse Resp BP Pulse Ox 10/14/16 08:48 96.0 F L 107 H 18 145/87 H 96 Departure - Departure Time of Disposition: 10:00 Disposition: HOME SELF-CARE Discharge Problem: Migraine Qualifiers: Migraine type: without aura Status migrainosus presence: without status migrainosus Intractability: not intractable Qualifier Code: (G43.009) Migraine without aura, not intractable, without status migrainosus Instructions: Migraine Headache (ED) Condition: Stable Pt referred to PMD for follow-up: No Additional Instructions: Needs f/u with neurologist as out patient, as she keeps having the episodes despite the maintenance medications. head dairy Allergies/Adverse Reactions: Allergies divalproex sodium [From Depakote] Adverse Reaction (Verified 10/14/16 08:55) ketorolac [From Toradol] Adverse Reaction (Verified 10/14/16 08:55) metoclopramide HCl [From Reglan] Adverse Reaction (Verified 10/14/16 08:55) Home Medications: Ambulatory Orders Carisoprodol [Soma] 350 mg PO PRN PRN 02/02/15 Promethazine HCl [Phenergan Tab] 50 mg PO PRN PRN 02/02/15 Amitriptyline HCl [Elavil] 100 mg PO DAILY 06/27/16 Doxepin HCl [Sinequan] 25 mg PO BEDTIME 08/01/16 Sumatriptan Succinate [Imitrex] 50 mg PO TID PRN #10 tablet 08/08/16 Disposition Discussed With: Patient
== END 2016-10-14 10:08 | disposition home or self-care (01) ==
LOC: ED 08:48
DX: G43.009 Migraine without aura, not intractable, without status migrainosus (principal)
CPT/HCPCS: 96372; 99282

== ENCOUNTER 2016-10-16 19:29 | Emergency (ER) ==
[2016-10-16 19:29] VITALS: BMI 33.0
[2016-10-16 19:35] VITALS: BP 136/82; TEMP 98.8
[2016-10-16] MEDS ORDERED: PHENERGAN 25 MG/ML VIAL IM STA (19:39)
[2016-10-16] MEDS ORDERED: STADOL IM STA (19:39)
--- NOTE | 2016-10-16 19:41 | ED.PDOC ---
General ED Provider: Dr. YAYA STUBBS Chief Complaint: Headache Stated Complaint: typical headache, ran out of imitrex. Time Seen by Physician: 19:42 Mode of Arrival: Walk-In Information Source: Patient Primary Care Provider: JEB KIRK Nursing and Triage Documentation Reviewed and Agree: Yes Neurological Complaint Exam - Headache Complaint/Exam Onset: Gradual Symptoms Are: Still present Timing: Constant Episodes Lasting: Hours Worst Headache Ever: No Initial Severity: Severe Current Severity: Severe Location: Right, Left, Frontal Character: Reports: Throbbing Aggravating: Reports: Bright lights Alleviating: Reports: None Associated Signs and Symptoms: Reports: Nausea. Denies: Dizziness, Seizure, Vomiting, Sinus pressure, Fever, Neck pain, Neck stiffness, Decreased LOC, Visual changes Related Surgical History: Reports: None SAH Risk Factors: Reports: None Meningitis Risk Factors: Reports: None SDH Risk Factors: Reports: None Temporal Arteritis Risk Factors: Reports: None Normal Head CT Within Last 12 Months: Yes Fundoscopic Exam: Present: Normal Findings Temporal Artery Tenderness: Present: None Sinus Tenderness: Present: None TMJ Tenderness: Present: None Meningeal Signs Positive: Yes Pain on Passive Flexion-Positive Kernig's: Yes ROM Limited In: No Limitiations Focal Weakness: Present: None Focal Sensory Loss: Present: None Gait: Normal Nystagmus Present: No Gag Reflex Present: Yes [id number]: Normal Findings Differential Diagnoses: Migraine Review of Systems - Review Of Systems Constitutional: Reports: No symptoms Eyes: Reports: No symptoms Ears, Nose, Mouth, Throat: Reports: No symptoms Respiratory: Reports: No symptoms Cardiac: Reports: No symptoms GI: Reports: No symptoms : Reports: No symptoms Musculoskeletal: Reports: No symptoms Skin: Reports: No symptoms Neurological: Reports: Headache Endocrine: Reports: No symptoms Hematologic/Lymphatic: Reports: No symptoms All Other Systems: Reviewed and Negative Past Medical History - Past Medical History Previously Healthy: No Endocrine: Reports: Hypothyroid Cardiovascular: Reports: Hypertension Respiratory: Reports: COPD, Asthma Hematological: Reports: None Gastrointestinal: Reports: GERD (nexium ), Pancreatitis (stents with pancreatitis-chronic pancreatitis) Genitourinary: Reports: None Neuro/Psych: Reports: Migraine, Anxiety. Denies: Depression (fluoxetine) Musculoskeletal: Reports: Back Pain, Other (soma phenergan) Cancer: Reports: None Last Menstrual Period: na Other Pertinent Past Medical History: Chronic back pain ,intrathecal pain pump and removal - Surgical History General Surgical History: Reports: Hysterectomy, , Cholecystectomy, Orthopedic (bilat. feet surg), Other (stents with pancreatitis-chronic pancreatitis) - Family History Family History: Reports: None - Social History Smoking Status: Never smoker Hx Substance Use: No Alcohol Screening: Occasionally - Immunizations Tetanus Shot up to Date: Yes Physical Exam - Physical Exam Appearance: Ill-appearing, No pain distress, Well-nourished Pain Distress: Moderate Eyes: PAULINO, EOMI, Conjunctiva clear ENT: Ears normal, Nose normal, Oropharynx normal Respiratory: Airway patent, Breath sounds clear, Breath sounds equal, Respirations nonlabored Cardiovascular: RRR, Pulses normal, No rub, No murmur GI/: Soft, Nontender, No masses, Bowel sounds normal, No Organomegaly Musculoskeletal: Normal strength, ROM intact, No edema, No calf tenderness Skin: Warm, Dry, Normal color Neurological: Sensation intact, Motor intact, Reflexes intact, Cranial nerves intact, Alert, Oriented Psychiatric: Affect appropriate, Mood appropriate Critical Care Note - Critical Care Note Total Time (mins): 0 Course - Course Orders, Labs, Meds: Orders Category Date Time Status Butorphanol Tartrate [Stadol] MEDS 10/16/16 19:39 Discontinued 2 mg IM ONCE STA Promethazine HCl [Phenergan 25 mg/ml Vial] MEDS 10/16/16 19:39 Discontinued 25 mg IM ONCE STA Medications Discontinued Medications Generic Name Dose Route Start Last Admin Trade Name Freq PRN Reason Stop Dose Admin Butorphanol Tartrate 2 mg 10/16/16 19:39 10/16/16 19:50 Stadol IM 10/16/16 19:40 2 mg ONCE STA Administration Promethazine HCl 25 mg 10/16/16 19:39 10/16/16 19:47 Phenergan 25 Mg/Ml Vial IM 10/16/16 19:40 25 mg ONCE STA Administration Vital Signs: Temp Pulse Resp BP Pulse Ox 10/16/16 19:29 98.8 F 112 H 20 136/82 92 L Departure - Departure Time of Disposition: 20:12 Disposition: HOME SELF-CARE Discharge Problem: Migraine Qualifiers: Migraine type: without aura Status migrainosus presence: without status migrainosus Intractability: not intractable Qualifier Code: (G43.009) Migraine without aura, not intractable, without status migrainosus Instructions: Migraine Headache (ED) Condition: Stable Pt referred to PMD for follow-up: Yes (neurologist) Additional Instructions: needs f/u with neurologist f/u at [facility]. Allergies/Adverse Reactions: Allergies divalproex sodium [From Depakote] Adverse Reaction (Verified 10/16/16 19:37) ketorolac [From Toradol] Adverse Reaction (Verified 10/16/16 19:37) metoclopramide HCl [From Reglan] Adverse Reaction (Verified 10/16/16 19:37) Home Medications: Ambulatory Orders Carisoprodol [Soma] 350 mg PO PRN PRN 02/02/15 Promethazine HCl [Phenergan Tab] 50 mg PO PRN PRN 02/02/15 Amitriptyline HCl [Elavil] 100 mg PO DAILY 06/27/16 Doxepin HCl [Sinequan] 25 mg PO BEDTIME 08/01/16 Esomeprazole Magnesium [Nexium] 20 mg PO DAILY 10/16/16 Disposition Discussed With: Patient, Family
== END 2016-10-16 20:17 | disposition home or self-care (01) ==
LOC: ED 19:29
DX: G43.009 Migraine without aura, not intractable, without status migrainosus (principal)
CPT/HCPCS: 96372; 99283

== ENCOUNTER 2016-10-24 18:44 | Emergency (ER) ==
[2016-10-24 18:44] VITALS: BMI 33.0
[2016-10-24 18:50] VITALS: BP 129/91; TEMP 97.7
[2016-10-24] MEDS ORDERED: PHENERGAN 25 MG/ML VIAL 25 MG in SODIUM CHLORIDE 50 ML IV STA (19:24)
[2016-10-24] MEDS ORDERED: SODIUM CHLORIDE 1,000 ML IV STA (19:24)
[2016-10-24] MEDS ORDERED: STADOL IVP STA (19:25)
[2016-10-24] MEDS ORDERED: PHENERGAN 25 MG/ML VIAL ONE (20:00)
--- NOTE | 2016-10-24 20:27 | ED.PDOC ---
General ED Provider: Dr. JACE PALAFOX Chief Complaint: Headache Stated Complaint: patient is a 46 year old female who had some dental proceedures today Time Seen by Physician: 19:09 Mode of Arrival: Walk-In Information Source: Patient Primary Care Provider: JEB KIRK Nursing and Triage Documentation Reviewed and Agree: Yes Neurological Complaint Exam - Headache Complaint/Exam Onset: Sudden Duration: constant Symptoms Are: Still present Timing: Constant Worst Headache Ever: No Initial Severity: Moderate Current Severity: Severe Location: Right, Left, Frontal Character: Reports: Throbbing Aggravating: Reports: None Alleviating: Reports: None Associated Signs and Symptoms: Reports: Nausea. Denies: Dizziness, Seizure, Vomiting, Sinus pressure, Fever, Neck pain, Neck stiffness, Decreased LOC, Visual changes Related Surgical History: Reports: None SAH Risk Factors: Reports: None Meningitis Risk Factors: Reports: None SDH Risk Factors: Reports: None Temporal Arteritis Risk Factors: Reports: None Normal Head CT Within Last 12 Months: Yes Fundoscopic Exam: Present: Normal Findings Papilledema Present: No Temporal Artery Tenderness: Present: None Sinus Tenderness: Present: None TMJ Tenderness: Present: None Meningeal Signs Positive: Yes Pain on Passive Flexion-Positive Kernig's: Yes ROM Limited In: No Limitiations Focal Weakness: Present: None Focal Sensory Loss: Present: None Gait: Normal Nystagmus Present: No Gag Reflex Present: No [id number]: Normal Findings Romberg Test Positive: No Babinski Sign: Negative Right, Negative Left Heel to Toe Normal: No Differential Diagnoses: Migraine Review of Systems - Review Of Systems Constitutional: Reports: No symptoms Eyes: Reports: Photophobia Ears, Nose, Mouth, Throat: Reports: Mouth pain Respiratory: Reports: No symptoms Cardiac: Reports: No symptoms GI: Reports: No symptoms : Reports: No symptoms Musculoskeletal: Reports: No symptoms Skin: Reports: No symptoms Neurological: Reports: Anxiety, Headache Endocrine: Reports: No symptoms Hematologic/Lymphatic: Reports: No symptoms All Other Systems: Reviewed and Negative Past Medical History - Past Medical History Previously Healthy: No Endocrine: Reports: Hypothyroid Cardiovascular: Reports: Hypertension Respiratory: Reports: COPD, Asthma Hematological: Reports: None Gastrointestinal: Reports: GERD (nexium ), Pancreatitis (stents with pancreatitis-chronic pancreatitis) Genitourinary: Reports: None Neuro/Psych: Reports: Migraine, Anxiety. Denies: Depression (fluoxetine) Musculoskeletal: Reports: Back Pain, Other (soma phenergan) Cancer: Reports: None Last Menstrual Period: HYSTERECTOMY Other Pertinent Past Medical History: Chronic back pain ,intrathecal pain pump and removal - Surgical History General Surgical History: Reports: Hysterectomy, , Cholecystectomy, Orthopedic (bilat. feet surg), Other (stents with pancreatitis-chronic pancreatitis) - Family History Family History: Reports: None - Social History Smoking Status: Never smoker Hx Substance Use: No Alcohol Screening: Occasionally Physical Exam - Physical Exam Appearance: Ill-appearing, Obese Ill-appearing: Moderate Pain Distress: Severe Eyes: PAULINO, EOMI, Conjunctiva clear ENT: Ears normal, Nose normal, Oropharynx normal Neck: Supple Respiratory: Airway patent, Breath sounds clear, Breath sounds equal, Respirations nonlabored Cardiovascular: RRR, Pulses normal, No rub, No murmur Musculoskeletal: Normal strength, ROM intact, No edema, No calf tenderness Skin: Warm, Dry, Normal color Neurological: Sensation intact, Motor intact, Alert, Oriented Psychiatric: Anxious Critical Care Note - Critical Care Note Total Time (mins): 0 Course - Course Orders, Labs, Meds: Orders Category Date Time Status ED IV/MEDIPORT/POWERPORT .ONCE EMERGENCY 10/24/16 19:25 Active 0.9 % Sodium Chloride [Saline Flush] MEDS 10/24/16 19:25 Ordered 1 syr IVF PRN PRN Butorphanol Tartrate [Stadol] MEDS 10/24/16 19:25 Discontinued 2 mg IVP ONCE STA Promethazine HCl [Phenergan 25 mg/ml Vial] MEDS 10/24/16 20:00 Discontinued 25 mg .ROUTE .STK-MED ONE Promethazine HCl [Phenergan 25 mg/ml Vial] 25 mg MEDS 10/24/16 19:24 Discontinued 0.9 % Sodium Chloride [Sodium Chloride] 50 ml IV ONCE Sodium Chloride 0.9% [Sodium Chloride] 1,000 ml MEDS 10/24/16 19:24 Discontinued IV BOLUS Medications Generic Name Dose Route Start Last Admin Trade Name Freq PRN Reason Stop Dose Admin Sodium Chloride 1 syr 10/24/16 19:25 Saline Flush IVF PRN PRN To flush IV Discontinued Medications Generic Name Dose Route Start Last Admin Trade Name Freq PRN Reason Stop Dose Admin Butorphanol Tartrate 2 mg 10/24/16 19:25 10/24/16 20:08 Stadol IVP 10/24/16 19:26 2 mg ONCE STA Administration Promethazine HCl 25 mg/ Sodium 51 mls @ 75 mls/hr 10/24/16 19:24 10/24/16 20: 08 Chloride IV 10/24/16 20:04 75 mls/hr ONCE STA Administration Sodium Chloride 1,000 mls @ 1,000 mls/hr 10/24/16 19:24 10/24/16 20:08 Sodium Chloride IV 10/24/16 20:23 1,000 mls/hr BOLUS STA Administration Vital Signs: Temp Pulse Resp BP Pulse Ox 10/24/16 18:44 97.7 F 109 H 18 129/91 H 92 L Departure - Departure Time of Disposition: 20:51 Disposition: HOME SELF-CARE Discharge Problem: Headache, Migraine Instructions: Migraine Headache (ED) Condition: Stable Pt referred to PMD for follow-up: Yes Additional Instructions: Follow up with PCP in 3 days Take medications as prescribed. Prescriptions: Butalb/Acetaminophen/Caffeine [Fioricet] 1 each PO TID PRN #14 tablet PRN Reason: Headache Promethazine HCl [Phenergan Tab] 25 mg PO Q6H PRN #15 tablet PRN Reason: Nausea / Vomiting Allergies/Adverse Reactions: Allergies divalproex sodium [From Depakote] Adverse Reaction (Verified 10/24/16 18:50) ketorolac [From Toradol] Adverse Reaction (Verified 10/24/16 18:50) metoclopramide HCl [From Reglan] Adverse Reaction (Verified 10/24/16 18:50) Home Medications: Ambulatory Orders Carisoprodol [Soma] 350 mg PO PRN PRN 02/02/15 Amitriptyline HCl [Elavil] 100 mg PO DAILY 06/27/16 Doxepin HCl [Sinequan] 25 mg PO BEDTIME 08/01/16 Esomeprazole Magnesium [Nexium] 20 mg PO DAILY 10/16/16 Butalb/Acetaminophen/Caffeine [Fioricet] 1 each PO TID PRN #14 tablet 10/24/16 Promethazine HCl [Phenergan Tab] 25 mg PO Q6H PRN #15 tablet 10/24/16 Disposition Discussed With: Patient, Family
== END 2016-10-24 21:05 | disposition home or self-care (01) ==
LOC: ED 18:44
DX: G43.909 Migraine, unspecified, not intractable, without status migrainosus (principal); Z98.890 Other specified postprocedural states; Z79.899 Other long term (current) drug therapy
CPT/HCPCS: 96365; 96375; 99283

== ENCOUNTER 2016-10-30 20:30 | Emergency (ER) ==
[2016-10-30 20:30] VITALS: BMI 33.0
[2016-10-30 20:33] VITALS: BP 137/93; TEMP 98.6
--- NOTE | 2016-10-30 20:42 | ED.PDOC ---
General ED Provider: Dr. RIKA WILLIAM-ER Chief Complaint: Tooth Problem Stated Complaint: my tooth hurts--i had dental work last week and i cant chew on it..had surgery with dr kothari in [place] Time Seen by Physician: 20:35 Mode of Arrival: Walk-In Information Source: Patient, Family Exam Limitations: No limitations Primary Care Provider: JEB KIRK Nursing and Triage Documentation Reviewed and Agree: Yes EENT Complaint Exam - Dental/Oral Complaint/Exam Mechanism of Injury: No known trauma Onset/Duration: several days Symptoms Are: Still present Timing: Constant Initial Severity: Mild Current Severity: Moderate Location: left lower jaw Character: Reports: Dull, Aching, Throbbing Aggravating: Reports: Heat, Cold, Chewing Alleviating: Reports: Heat, Cold Associated Signs and Symptoms: Denies: Swelling, Discharge, Fever, Foul odor, Foul taste in mouth Related History: Reports: Previous tooth problem Dental/Oral Surgical History: Reports: Periodontal Surgery Tooth Findings: Present: Percussion tenderness. Absent: Gross decay, Gross caries, Dental fracture, Abcess, Cellulitis Cervical Lymphadenopathy Present: No Facial Swelling Present: No Bleeding Present: No Oropharynx Findings: Absent: Clots, Active bleeding Septal Hematoma: No Foreign Body Present: No Dysphagia Present: No Drooling Present: No Asymmetrical Tonsillar Swelling Present: No Uvula Midline: Yes Eleni-tonsillar Fluctuence: No Trismus Present: No Palatal Petechiae Present: No Scarlatinaform Rash Present: No Differential Diagnoses: Dental Abcess, Dental Caries, Gingivitis, Odontogenic Pain, Periodontic Disease Review of Systems - Review Of Systems Constitutional: Reports: No symptoms Eyes: Reports: No symptoms Ears, Nose, Mouth, Throat: Reports: Mouth pain Respiratory: Reports: No symptoms Cardiac: Reports: No symptoms GI: Reports: No symptoms : Reports: No symptoms Musculoskeletal: Reports: No symptoms Skin: Reports: No symptoms Neurological: Reports: No symptoms Endocrine: Reports: No symptoms Hematologic/Lymphatic: Reports: No symptoms All Other Systems: Reviewed and Negative Past Medical History - Past Medical History Previously Healthy: No Endocrine: Reports: Hypothyroid Cardiovascular: Reports: Hypertension Respiratory: Reports: COPD, Asthma Hematological: Reports: None Gastrointestinal: Reports: GERD (nexium ), Pancreatitis (stents with pancreatitis-chronic pancreatitis) Genitourinary: Reports: None Neuro/Psych: Reports: Migraine, Anxiety. Denies: Depression (fluoxetine) Musculoskeletal: Reports: Back Pain, Other (soma phenergan) Cancer: Reports: None Last Menstrual Period: none Other Pertinent Past Medical History: Chronic back pain ,intrathecal pain pump and removal - Surgical History General Surgical History: Reports: Hysterectomy, , Cholecystectomy, Orthopedic (bilat. feet surg), Other (stents with pancreatitis-chronic pancreatitis) - Family History Family History: Reports: None - Social History Smoking Status: Never smoker Hx Substance Use: No Alcohol Screening: Occasionally Lives: With family Physical Exam - Physical Exam Appearance: Well-appearing, No pain distress, Well-nourished Pain Distress: Mild Eyes: PAULINO, EOMI, Conjunctiva clear ENT: Ears normal, Nose normal, Oropharynx normal Neck: Supple Respiratory: Airway patent, Breath sounds clear, Breath sounds equal, Respirations nonlabored Cardiovascular: RRR, Pulses normal, No rub, No murmur GI/: Soft, Nontender, No masses, Bowel sounds normal, No Organomegaly Musculoskeletal: Normal strength, ROM intact, No edema, No calf tenderness Skin: Warm, Dry, Normal color Neurological: Sensation intact, Motor intact, Reflexes intact, Cranial nerves intact, Alert, Oriented Psychiatric: Affect appropriate, Mood appropriate Critical Care Note - Critical Care Note Total Time (mins): 0 Course - Course Vital Signs: Temp Pulse Resp BP Pulse Ox 10/30/16 20:30 98.6 F 108 H 18 137/93 H 95 Departure - Departure Time of Disposition: 20:43 Disposition: AMA Discharge Problem: Toothache Instructions: Toothache (ED) Condition: Good Pt referred to PMD for follow-up: Yes Additional Instructions: she stated she has not contacted her dentist about the problem--i offered her some pain meds until she could see her dentist tomorrow--she became angry and decided she was going to leave--her family suggested antbx and pain meds --i told them i have no problem with that but she became angry and upset and left-- i am not certain what the pateint was wanting--again she indicated she did not contact her surgeon today and did not want the treatment i was going to present to her Allergies/Adverse Reactions: Allergies divalproex sodium [From Depakote] Adverse Reaction (Verified 10/30/16 20:33) ketorolac [From Toradol] Adverse Reaction (Verified 10/30/16 20:33) metoclopramide HCl [From Reglan] Adverse Reaction (Verified 10/30/16 20:33) Home Medications: Ambulatory Orders Carisoprodol [Soma] 350 mg PO PRN PRN 02/02/15 Amitriptyline HCl [Elavil] 100 mg PO DAILY 06/27/16 Doxepin HCl [Sinequan] 25 mg PO BEDTIME 08/01/16 Esomeprazole Magnesium [Nexium] 20 mg PO DAILY 10/16/16 Butalb/Acetaminophen/Caffeine [Fioricet] 1 each PO TID PRN #14 tablet 10/24/16 Promethazine HCl [Phenergan Tab] 25 mg PO Q6H PRN #15 tablet 10/24/16 Transfer Form Completed: No Disposition Discussed With: Patient, Family
== END 2016-10-30 20:46 | disposition left against medical advice (07) ==
LOC: ED 20:30
DX: K08.89 Other specified disorders of teeth and supporting structures (principal); Z98.818 Other dental procedure status
CPT/HCPCS: 99284

== ENCOUNTER 2016-11-13 11:34 | Outpatient (CLI) ==
[2016-11-13 12:51] LABS: BASOPHILS % (AUTO) 0.6 % (0.0-3.0); EOSINOPHILS # (AUTO) 0.2 K/ul (0.0-0.7); EOSINOPHILS % (AUTO) 2.9 % (0.0-7.0); HEMATOCRIT 38.8 % (37.0-47.0); IMMATURE GRANULOCYTE % (AUTO) 0.3 % (0.0-5.0); LYMPHOCYTES # (AUTO) 1.9 K/uL (0.60-3.4); LYMPHOCYTES % (AUTO) 29.3 (10.0-50.0); MEAN CORPUSCULAR HEMOGLOBIN 30.5 pg (27.0-31.0); MEAN CORPUSCULAR HGB CONC 33.5 (31.8-35.4); MEAN CORPUSCULAR VOLUME 91.1 fl (81.0-99.0); MONOCYTES # (AUTO) 0.4 K/uL (0.4-2.0); MONOCYTES % (AUTO) 5.8 (0-10); NEUTROPHILS % (AUTO) 61.1; PLATELET COUNT 316 10^3/uL (140-440); RED BLOOD COUNT 4.26 10^6/ul (4.20-5.40); WHITE BLOOD COUNT 6.58 K/ul (4.6-10.2)
[2016-11-13 13:24] LABS: ALBUMIN 3.7 g/dL (3.4-5.0); ALBUMIN/GLOBULIN RATIO 0.86; ANION GAP 14.8; BILIRUBIN,TOTAL 0.28 mg/dL (0.00-1.20); BUN/CREATININE RATIO 12.61; CALCIUM 9.3 mg/dL (8.2-10.2); CHOL/HDL RATIO 5.6 (4.5-5.5); CREATININE 1.11 mg/dL (0.60-1.30); POTASSIUM 3.8 mmol/L (3.5-5.10)
[2016-11-13 13:50] LABS: ERYTHROCYTE SEDIMENTATION RATE 61 mm/hr (0-20); ESR INTERNAL QC INTERNAL QC VALID
[2016-11-14 09:15] LABS: C-REACTIVE PROTEIN 6.1 mg/L (0.0-4.9)
[2016-11-14 14:04] LABS: ANTI-NUCLEAR ANTIBODY SCREEN Negative (Negative)
== END 2016-11-13 11:35 | disposition home or self-care (01) ==
LOC: LAB 11:34
PROVIDERS: ATTEND Nurse Practitioner Family
DX: R13.13 Dysphagia, pharyngeal phase (principal); K86.1 Other chronic pancreatitis; M25.549 Pain in joints of unspecified hand; K21.9 Gastro-esophageal reflux disease without esophagitis; G43.009 Migraine without aura, not intractable, without status migrainosus
CPT/HCPCS: 36415; 80053; 80061; 84443; 85025; 85651; 86038; 86140

== ENCOUNTER 2016-11-16 08:33 | Outpatient (CLI) ==
--- NOTE | 2016-11-16 09:09 | DI ---
EXAM: Single contrast esophagram. History: Dysphagia. Technique: Patient was given oral barium and multiple spot films of the esophagus and gastroesophag eal junction were obtained in various injections. Findings: The course and caliber of the esophagus are within normal limits. No mucosal lesions or f illing defects identified. With Valsalva maneuver there was a suggestion of a very small inconsisten t hiatal hernia. At the end of the study, the patient had a difficulty clearing of the barium from t he esophagus into the stomach which may indicate a mild dysmotility. Gastroesophageal reflux was al so likely. No gastric outlet obstruction Impression: A small inconsistent hiatal hernia. Suggestion of mild degree of esophageal dysmotility and probable gastroesophageal reflux.
== END 2016-11-16 08:34 | disposition home or self-care (01) ==
LOC: RAD 08:33
PROVIDERS: ATTEND Emergency Medicine
DX: R13.13 Dysphagia, pharyngeal phase (principal)

== ENCOUNTER 2016-12-09 01:03 | Emergency (ER) ==
[2016-12-09 01:14] VITALS: BP 138/92; TEMP 98.2; BMI 33.7
[2016-12-09] MEDS ORDERED: SODIUM CHLORIDE 1,000 ML IV STA (01:30)
[2016-12-09] MEDS ORDERED: DILAUDID 1 MG/ML SYRINGE IVP STA (01:31)
[2016-12-09] MEDS ORDERED: ZOFRAN 4 MG/2 ML IVP STA ×2 (01:32→10:24)
[2016-12-09] MEDS ORDERED: DILAUDID 1 MG/ML SYRINGE IVP PRN (01:48)
[2016-12-09] MEDS ORDERED: PHENERGAN 25 MG/ML VIAL 25 MG in SODIUM CHLORIDE 100 ML IV STA (02:10)
[2016-12-09] MEDS ORDERED: PHENERGAN 25 MG/ML VIAL ONE ×2 (02:13→05:41)
[2016-12-09 02:20] LABS: BASOPHILS % (AUTO) 0.3 % (0.0-3.0); EOSINOPHILS # (AUTO) 0.1 K/ul (0.0-0.7); EOSINOPHILS % (AUTO) 1.3 % (0.0-7.0); HEMATOCRIT 36.8 % (37.0-47.0); HEMOGLOBIN 12.8 g/dl (12.0-16.0); IMMATURE GRANULOCYTE % (AUTO) 0.4 % (0.0-5.0); LYMPHOCYTES # (AUTO) 2.1 K/uL (0.60-3.4); LYMPHOCYTES % (AUTO) 21.8 (10.0-50.0); MEAN CORPUSCULAR HEMOGLOBIN 30.7 pg (27.0-31.0); MEAN CORPUSCULAR HGB CONC 34.8 (31.8-35.4); MEAN CORPUSCULAR VOLUME 88.2 fl (81.0-99.0); MONOCYTES # (AUTO) 0.5 K/uL (0.4-2.0); MONOCYTES % (AUTO) 5.2 (0-10); NEUTROPHILS # (AUTO) 6.9 K/ul (2.0-6.9); PLATELET COUNT 329 10^3/uL (140-440); RED BLOOD COUNT 4.17 10^6/ul (4.20-5.40)
[2016-12-09 02:50] LABS: ALBUMIN 3.7 g/dL (3.4-5.0); ALBUMIN/GLOBULIN RATIO 0.93; ANION GAP 20.4; BILIRUBIN,TOTAL 0.3 mg/dL (0.00-1.20); BUN/CREATININE RATIO 17.69; CALCIUM 9.2 mg/dL (8.2-10.2); CREATININE 1.13 mg/dL (0.60-1.30); POTASSIUM 3.4 mmol/L (3.5-5.10); TOTAL PROTEIN 7.7 g/dL (6.4-8.2); TROPONIN I 0.01 ng/ml (0.0000-0.4000)
[2016-12-09 02:56] LABS: ERYTHROCYTE SEDIMENTATION RATE 41 mm/hr (0-20); ESR INTERNAL QC INTERNAL QC VALID
--- NOTE | 2016-12-09 03:50 | CT ---
EXAM: CT of the abdomen and pelvis without contrast. HISTORY: Abdominal pain. PROCEDURE: Contiguous axial CT images of the abdomen and pelvis without contrast with coronal and s agittal reformats. FINDINGS: There is minimal pneumobilia in the left lobe of the liver. The gallbladder is surgically absent. The pancreas, spleen, adrenal glands and right kidney are normal in appearance. There is l eft renal cortical scarring. There are nonobstructive calcifications in the left kidney. The abdomi nal aorta is normal in appearance. The visualized loops of bowel and appendix are normal in appearan ce. No free fluid or free air in the abdomen or pelvis. The bladder is adequately filled with no abn ormality identified. The uterus is surgically absent. There are degenerative changes in the spine. T here is a hematoma in the subcutaneous tissues of the right anterior abdominal wall measuring 5.6 x 1.5 cm. There are injection granulomas in the bilateral flanks. Impression: 5.6 x 1.5 cm hematoma in the subcutaneous tissues of the right anterior abdominal wall. Nonobstructive left nephrolithiasis. Left renal cortical scarring. Cholecystectomy with minimal pneumobilia. Hysterectomy.
--- NOTE | 2016-12-09 04:44 | DI ---
EXAM: AP single view of the chest. HISTORY: Pain. FINDINGS: The bones are unremarkable. The right-sided MediPort catheter is positioned with the tip at the level of the right atrium. The cardiac silhouette and pulmonary vasculature are within benitez l limits. The costophrenic angles are clear. No infiltrate or consolidation. Impression: No acute cardiopulmonary disease. MediPort catheter as described.
--- NOTE | 2016-12-09 05:15 | ED.PDOC ---
General Stated Complaint: im hurting=--c/o lower abd crmpaing wtih diarrhea and pain Time Seen by Physician: 01:15 Mode of Arrival: Walk-In Information Source: Patient, Family Exam Limitations: No limitations Nursing and Triage Documentation Reviewed and Agree: Yes <RIKA CRUZ - Last Filed: 12/09/16 06:07> <ROBBIE TINAJERO JR - Last Filed: 12/09/16 09:54> ED Provider: Dr. ROBBIE TINAJERO JR Chief Complaint: Abdominal Pain Primary Care Provider: JEB KIRK GI Complaint Exam - Abdominal Pain Complaint/Exam Onset: Gradual Duration: several hours Symptoms Are: Still present Timing: Constant Initial Severity: Mild Current Severity: Mild Location of Pain: Suprapubic Character: Reports: Dull, Aching, Cramping Aggravating: Reports: None Alleviating: Reports: None Associated Signs and Symptoms: Reports: Nausea. Denies: Diaphoresis, Fever, Cough, Chest pain, Dizziness, Back pain, Constipation, Blood in stool, Dysuria, Urinary frequency, Decreased urine output, Decreased appetite, Vaginal bleeding , Vaginal discharge, Vomiting, Diarrhea, Sore throat, Decreased activity Patient Rh Status: Unknown Abdominal Findings: Present: None Quality Indicator For Non-Traumatic Chest Pain/Syncope: EKG Performed <RIKA CRUZ Filed: 12/09/16 06:07> Review of Systems - Review Of Systems Constitutional: Reports: No symptoms Eyes: Reports: No symptoms Ears, Nose, Mouth, Throat: Reports: No symptoms Respiratory: Reports: No symptoms Cardiac: Reports: No symptoms GI: Reports: Abdominal pain, Diarrhea, Nausea : Reports: No symptoms Musculoskeletal: Reports: No symptoms Skin: Reports: No symptoms Neurological: Reports: No symptoms Endocrine: Reports: No symptoms Hematologic/Lymphatic: Reports: No symptoms All Other Systems: Reviewed and Negative <RIKA CRUZ Filed: 12/09/16 06:07> Past Medical History - Past Medical History Previously Healthy: No Endocrine: Reports: Hypothyroid Cardiovascular: Reports: Hypertension Respiratory: Reports: COPD, Asthma Hematological: Reports: None Gastrointestinal: Reports: GERD (nexium ), Pancreatitis (stents with pancreatitis-chronic pancreatitis) Genitourinary: Reports: None Neuro/Psych: Reports: Migraine, Anxiety. Denies: Depression (fluoxetine) Musculoskeletal: Reports: Back Pain, Other (soma phenergan) Cancer: Reports: None Last Menstrual Period: 2009 Other Pertinent Past Medical History: Chronic back pain ,intrathecal pain pump and removal - Surgical History General Surgical History: Reports: Hysterectomy, , Cholecystectomy, Orthopedic (bilat. feet surg), Other (stents with pancreatitis-chronic pancreatitis) - Family History Family History: Reports: None - Social History Smoking Status: Never smoker Hx Substance Use: No Alcohol Screening: None Lives: With family - Immunizations Tetanus Shot up to Date: No <RIKA CRUZ - Last Filed: 12/09/16 06:07> Physical Exam - Physical Exam Appearance: Well-appearing, No pain distress, Well-nourished Eyes: PAULINO, EOMI, Conjunctiva clear ENT: Ears normal, Nose normal, Oropharynx normal Neck: Supple Respiratory: Airway patent, Breath sounds clear, Breath sounds equal, Respirations nonlabored Cardiovascular: RRR, Pulses normal, No rub, No murmur GI/: Soft, Nontender, No masses, Bowel sounds normal, No Organomegaly Musculoskeletal: Normal strength Skin: Warm Neurological: Sensation intact, Motor intact, Reflexes intact, Cranial nerves intact, Alert, Oriented Psychiatric: Affect appropriate, Mood appropriate <RIKA CRUZ - Last Filed: 12/09/16 06:07> Interpretation - Radiology Interpretation Radiology Interpretation By: Radiologist Radiology Results: Positive Exam Interpreted: CT Scan ("dr bowden called about this report0--she does not have any bruising or denies any recent trauma to the area--it is appears this is the area where she had catheter/pump removed years ago ?scar tissue--dr bowden recommended repeating ct scan in a few hours to establish stability") <RIKA CRUZ - Last Filed: 12/09/16 06:07> Physician Notification - Case Discussed Physician Notified: dr tinajero Time of Notification: 07:00 <RIKA CRUZ - Last Filed: 12/09/16 06:07> - Case Discussed Endorsed To/Discussed With: dr kinsey Time of Discussion: 06:57 (ct at 09) <ROBBIE TINAJERO JR - Last Filed: 12/09/16 09:54> Critical Care Note - Critical Care Note Total Time (mins): 0 <RIKA CRUZ - Last Filed: 12/09/16 06:07> Course - Course Hematology/Chemistry: 12/09/16 02:10 12/09/16 02:10 <RIKA CRUZ - Last Filed: 12/09/16 06:07> - Course Hematology/Chemistry: 12/09/16 02:10 12/09/16 02:10 <ROBBIE TINAJERO JR - Last Filed: 12/09/16 09:54> - Course Orders, Labs, Meds: Lab Review 12/09/16 12/09/16 02:10 05:25 WBC 9.70 RBC 4.17 L Hgb 12.8 Hct 36.8 L MCV 88.2 MCH 30.7 MCHC 34.8 RDW Coeff of [place] 13.5 Plt Count 329 Immature Gran % (Auto) 0.4 Neut % (Auto) 71.0 Lymph % (Auto) 21.8 Early % (Auto) 5.2 Eos % (Auto) 1.3 Baso % (Auto) 0.3 Immature Gran # (Auto) 0.0 Neut # 6.9 Lymph # 2.1 Early # 0.5 Eos # 0.1 Baso # 0.0 ESR 41 H Sodium 140 Potassium 3.4 L Chloride 104 Carbon Dioxide 19 L Anion Gap 20.4 BUN 20 H Creatinine 1.13 Estimated GFR (MDRD) 52.00 BUN/Creatinine Ratio 17.69 Glucose 113 H Calcium 9.2 Total Bilirubin 0.30 AST 15 ALT 20 Alkaline Phosphatase 135 H Total Creatine Kinase 59 Troponin I 0.0100 Total Protein 7.7 Albumin 3.7 Globulin 4.0 Albumin/Globulin Ratio 0.93 Amylase 36 Lipase 25 Urine Color Yellow Urine Clarity Slightly Urine pH 6.0 Ur Specific [place] 1.015 Urine Protein Negative Urine Glucose (UA) Negative Urine Ketones Negative Urine Blood Negative Urine Nitrite Negative Urine Bilirubin Negative Urine Urobilinogen 0.2 Ur Leukocyte Esterase Negative Orders Category Date Time Status EKG-(ED ONLY) Stat CARDIO 12/09/16 01:30 Completed NPO REMINDER: IMAGING ONCE CARE 12/09/16 01:34 Completed NPO REMINDER: IMAGING ONCE CARE 12/09/16 06:11 Completed ED IV/MEDIPORT/POWERPORT .ONCE EMERGENCY 12/09/16 01:30 Active AMYLASE Stat LAB 12/09/16 02:10 Completed CBC W/ AUTO DIFF Stat LAB 12/09/16 02:10 Completed COMPREHENSIVE METABOLIC PANEL Stat LAB 12/09/16 02:10 Completed CREATINE KINASE Stat LAB 12/09/16 02:10 Completed ESR Stat LAB 12/09/16 02:10 Completed LIPASE Stat LAB 12/09/16 02:10 Completed TROPONIN I Stat LAB 12/09/16 02:10 Completed URINALYSIS C & S IF INDICATED Stat LAB 12/09/16 05:25 Completed 0.9 % Sodium Chloride [Saline Flush] MEDS 12/09/16 01:30 Active 1 syr IVF PRN PRN Hydromorphone HCl [Dilaudid 1 mg/ml Syringe] MEDS 12/09/16 01:31 Discontinued 1 mg IVP ONCE STA Hydromorphone HCl [Dilaudid 1 mg/ml Syringe] MEDS 12/09/16 01:48 Active 1 mg IVP Q1HR PRN Promethazine HCl [Phenergan 25 mg/ml Vial] MEDS 12/09/16 02:13 Discontinued 25 mg .ROUTE .STK-MED ONE Promethazine HCl [Phenergan 25 mg/ml Vial] MEDS 12/09/16 05:41 Discontinued 25 mg .ROUTE .STK-MED ONE Promethazine HCl [Phenergan 25 mg/ml Vial] 25 mg MEDS 12/09/16 02:10 Discontinued 0.9 % Sodium Chloride [Sodium Chloride] 100 ml IV ONCE Promethazine HCl [Phenergan 25 mg/ml Vial] 25 mg MEDS 12/09/16 05:38 Discontinued 0.9 % Sodium Chloride [Sodium Chloride] 50 ml IV ONCE Sodium Chloride 0.9% [Sodium Chloride] 1,000 ml MEDS 12/09/16 01:30 Active IV 100 mls/hr CT ABDOMEN/PELVIS WO CONTRAST Stat RADS 12/09/16 03:[address] ABDOMEN/PELVIS WO CONTRAST Stat RADS 12/09/16 06:12 Completed CXR [CHEST, 1V AP ONLY] Stat RADS 12/09/16 01:34 Completed Medications Generic Name Dose Route Start Last Admin Trade Name Freq PRN Reason Stop Dose Admin Hydromorphone HCl 1 mg 12/09/16 01:48 12/09/16 05:53 Dilaudid 1 Mg/Ml Syringe IVP 1 mg Q1HR PRN Administration Abdominal Pain Sodium Chloride 1,000 mls @ 100 mls/hr 12/09/16 01:30 12/09/16 02:01 Sodium Chloride IV 12/09/16 11:29 100 mls/hr .Q10H STA Administration Sodium Chloride 1 syr 12/09/16 01:30 Saline Flush IVF PRN PRN To flush IV Discontinued Medications Generic Name Dose Route Start Last Admin Trade Name Blanca PRN Reason Stop Dose Admin Hydromorphone HCl 1 mg 12/09/16 01:31 12/09/16 02:01 Dilaudid 1 Mg/Ml Syringe IVP 12/09/16 01:32 1 mg ONCE STA Administration Promethazine HCl 25 mg/ Sodium 101 mls @ 200 mls/hr 12/09/16 02:10 12/09/16 02:26 Chloride IV 12/09/16 02:40 200 mls/hr ONCE STA Administration Promethazine HCl 25 mg/ Sodium 51 mls @ 75 mls/hr 12/09/16 05:38 12/09/16 05: 51 Chloride IV 12/09/16 06:18 75 mls/hr ONCE STA Administration Vital Signs: Temp Pulse Resp BP Pulse Ox 12/09/16 01:07 98.2 F 92 H 20 138/92 H 96 Departure <RIKA CRUZ - Last Filed: 12/09/16 06:07> - Departure Time of Disposition: 09:51 Pt referred to PMD for follow-up: Yes <ROBBIE TINAJERO JR - Last Filed: 12/09/16 09:54> - Departure Disposition: HOME SELF-CARE Discharge Problem: Abdominal pain Instructions: Acute Abdominal Pain (ED) Condition: Good Additional Instructions: follow up with PMD this wek return if worse discuss CT with PMD follow up with specialist as needed Allergies/Adverse Reactions: Allergies divalproex sodium [From Depakote] Adverse Reaction (Verified 12/09/16 01:14) ketorolac [From Toradol] Adverse Reaction (Verified 12/09/16 01:14) metoclopramide HCl [From Reglan] Adverse Reaction (Verified 12/09/16 01:14) Home Medications: Ambulatory Orders Carisoprodol [Soma] 350 mg PO PRN PRN 02/02/15 Amitriptyline HCl [Elavil] 100 mg PO DAILY 06/27/16 Doxepin HCl [Sinequan] 25 mg PO BEDTIME 08/01/16 Esomeprazole Magnesium [Nexium] 20 mg PO DAILY 10/16/16 Promethazine HCl [Phenergan Tab] 25 mg PO Q6H PRN #15 tablet 10/24/16
[2016-12-09] MEDS ORDERED: PHENERGAN 25 MG/ML VIAL 25 MG in SODIUM CHLORIDE 50 ML IV STA (05:38)
[2016-12-09 05:59] LABS: BILIRUBIN,URINE Negative (NEGATIVE); KETONES,URINE Negative (NEGATIVE); LEUKOCYTE ESTERASE ,URINE Negative (NEGATIVE); NITRITE,URINE Negative (NEGATIVE); PROTEIN,URINE Negative (NEGATIVE); URINE, BLOOD Negative (NEGATIVE)
[2016-12-09 06:00] LABS: ADD URINE MICROSCOPIC NO
--- NOTE | 2016-12-09 09:25 | CT ---
EXAM: CT of the abdomen pelvis without contrast Comparison: CT abdomen pelvis 12/09/2016 History: Abdominal mass Technique: Multiplanar CT images through the abdomen pelvis were obtained without the administratio n of IV contrast Findings: Lung bases are free of consolidation. No acute osseous abnormalities. Status post cholecystectomy with minimal pneumobilia again seen. No peripancreatic inflammation. A drenal glands are unremarkable. Left renal cortical scarring again noted. No change in the left ne phrolithiasis. No hydronephrosis. The appendix is not dilated or inflamed. No free air and no asc ites. No bowel obstruction. No bladder wall thickening. Scattered colonic stool. No perirectal i nflammation. Uterus is not seen. No focal liver or splenic lesions. No change in the hyperattenuating area within the subcutaneous soft tissues of the right anterior ab dominal wall. Impression: 1. No change in the hyperattenuating area within the subcutaneous soft tissues of the right anterio r abdominal wall could represent scarring or hematoma. Neoplastic etiology is considered less likel y but not excluded. Follow-up CT can be obtained in 6 months to document stability and/or resolutio n. 2. Nonobstructing left nephrolithiasis.
[2016-12-09] MEDS ORDERED: STADOL IVP STA (10:17)
[2016-12-09] MEDS ORDERED: ZOFRAN 4 MG/2 ML ONE (11:31)
== END 2016-12-09 11:00 | disposition home or self-care (01) ==
LOC: ED 01:03
DX: R10.30 Lower abdominal pain, unspecified (principal); R19.7 Diarrhea, unspecified; R11.0 Nausea; Z79.899 Other long term (current) drug therapy
CPT/HCPCS: 36415; 80053; 81001; 82150; 82550; 83690; 84484; 85025; 85651; 93005; 93010; 96361; 96365; 96367; 96375; 96376; 99283

== ENCOUNTER 2016-12-19 19:09 | Emergency (ER) ==
[2016-12-19 19:13] VITALS: BP 140/92; TEMP 98.3; BMI 33.0
[2016-12-19] MEDS ORDERED: DILAUDID 2 MG/ML SYRINGE IM STA (19:20)
[2016-12-19] MEDS ORDERED: PHENERGAN 25 MG/ML VIAL IM STA (19:20)
[2016-12-19 19:44] LABS: ADD URINE MICROSCOPIC NO; BILIRUBIN,URINE Negative (NEGATIVE); KETONES,URINE Negative (NEGATIVE); LEUKOCYTE ESTERASE ,URINE Negative (NEGATIVE); NITRITE,URINE Negative (NEGATIVE); PROTEIN,URINE Negative (NEGATIVE); URINE, BLOOD Negative (NEGATIVE)
--- NOTE | 2016-12-19 19:52 | ED.PDOC ---
General ED Provider: Dr. RIKA WILLIAM-ER Chief Complaint: Back Pain Stated Complaint: my back is hurting--i have a herniated disc Time Seen by Physician: 19:15 Mode of Arrival: Walk-In Information Source: Patient Exam Limitations: No limitations Primary Care Provider: JEB KIRK Nursing and Triage Documentation Reviewed and Agree: Yes Musculoskeletal Complaint Exam - Back Pain Complaint/Exam Mechanism of Injury: Reports: No known trauma Onset/Duration: several days Symptoms Are: Still present Timing: Constant Initial Severity: Mild Current Severity: Moderate Location: Reports: Discrete Character: Reports: Aching, Throbbing Aggravating: Reports: Movements, Lifting, Bending, Walking Alleviating: Reports: None Associated Signs and Symptoms: Denies: Swelling, Redness, Bruising, Fever, Weakness, Numbness, Tingling, Abdominal pain, Flank pain, Bladder incontinence, Bowel incontinence, Weight loss, Pain with weight bearing Related History: Reports: Previous back injury Epidural Abcess Risk Factors: Reports: None Focal Tenderness: Yes Paraspinal Muscle Tenderness: Yes Paraspinal Muscle Spasm: No Scoliosis: No Lordosis: No Kyphosis: No SLR Test: Right Negative, Left Negative Hip Motion Testing Pain: Right Negative, Left Negative Focal Weakness: Present: None Focal Sensory Loss: Present: None Gait: Present: Abnormal Differential Diagnoses: Herniated Disk Review of Systems - Review Of Systems Constitutional: Reports: No symptoms Eyes: Reports: No symptoms Ears, Nose, Mouth, Throat: Reports: No symptoms Respiratory: Reports: No symptoms Cardiac: Reports: No symptoms GI: Reports: No symptoms : Reports: No symptoms Musculoskeletal: Reports: Back pain Skin: Reports: No symptoms Neurological: Reports: No symptoms Endocrine: Reports: No symptoms Hematologic/Lymphatic: Reports: No symptoms All Other Systems: Reviewed and Negative Past Medical History - Past Medical History Previously Healthy: No Endocrine: Reports: Hypothyroid Cardiovascular: Reports: Hypertension Respiratory: Reports: COPD, Asthma Hematological: Reports: None Gastrointestinal: Reports: GERD (nexium ), Pancreatitis (stents with pancreatitis-chronic pancreatitis) Genitourinary: Reports: None Neuro/Psych: Reports: Migraine, Anxiety. Denies: Depression (fluoxetine) Musculoskeletal: Reports: Back Pain, Other (soma phenergan) Cancer: Reports: None Last Menstrual Period: 2009 Other Pertinent Past Medical History: Chronic back pain ,intrathecal pain pump and removal - Surgical History General Surgical History: Reports: Hysterectomy, , Cholecystectomy, Orthopedic (bilat. feet surg), Other (stents with pancreatitis-chronic pancreatitis) - Family History Family History: Reports: None - Social History Smoking Status: Never smoker Hx Substance Use: No Alcohol Screening: Occasionally Lives: With family - Immunizations Tetanus Shot up to Date: Yes Physical Exam - Physical Exam Appearance: Well-appearing, No pain distress, Well-nourished Pain Distress: Moderate Eyes: PAULINO, EOMI, Conjunctiva clear ENT: Ears normal, Nose normal, Oropharynx normal Neck: Supple Respiratory: Airway patent, Breath sounds clear, Breath sounds equal, Respirations nonlabored Cardiovascular: RRR, Pulses normal, No rub, No murmur GI/: Soft, Nontender, No masses, Bowel sounds normal, No Organomegaly Musculoskeletal: Limited ROM Skin: Warm, Dry, Normal color Neurological: Sensation intact, Motor intact, Reflexes intact, Cranial nerves intact, Alert, Oriented Psychiatric: Affect appropriate, Mood appropriate Re-Evaluation - Re-Evaluation Time of Re-Evaluation: 20:12 Status: Improved Vital Signs Stable: Yes Pain Level: 1 Appearance: NAD Lungs: Clear Skin: Warm and Dry Neuro: Alert and Oriented X3 CV: RRR Critical Care Note - Critical Care Note Total Time (mins): 0 Course - Course Orders, Labs, Meds: Lab Review 12/19/16 19:25 Urine Color Yellow Urine Clarity Clear Urine pH 7.0 Ur Specific [place] 1.010 Urine Protein Negative Urine Glucose (UA) Negative Urine Ketones Negative Urine Blood Negative Urine Nitrite Negative Urine Bilirubin Negative Urine Urobilinogen 0.2 Ur Leukocyte Esterase Negative Orders Category Date Time Status UA [URINALYSIS C & S IF INDICATED] Stat LAB 12/19/16 19:25 Completed Hydromorphone HCl/Pf [Dilaudid 2 mg/ml Syringe] MEDS 12/19/16 19:20 Discontinued 2 mg IM ONCE STA Promethazine HCl [Phenergan 25 mg/ml Vial] MEDS 12/19/16 19:20 Discontinued 25 mg IM ONCE STA CT ABDOMEN/PELVIS WO CONTRAST Stat RADS 12/19/16 19:[address] LUMBAR SPINE W/O CONTRAST Stat RADS 12/19/16 19:19 Completed Medications Discontinued Medications Generic Name Dose Route Start Last Admin Trade Name Freq PRN Reason Stop Dose Admin Hydromorphone HCl 2 mg 12/19/16 19:20 12/19/16 19:28 Dilaudid 2 Mg/Ml Syringe IM 12/19/16 19:21 2 mg ONCE STA Administration Promethazine HCl 25 mg 12/19/16 19:20 12/19/16 19:29 Phenergan 25 Mg/Ml Vial IM 12/19/16 19:21 25 mg ONCE STA Administration Vital Signs: Temp Pulse Resp BP Pulse Ox 12/19/16 19:10 98.3 F 80 20 140/92 H 96 Departure - Departure Time of Disposition: 20:12 Disposition: HOME SELF-CARE Discharge Problem: Backache Instructions: Back Pain (ED) Condition: Good Pt referred to PMD for follow-up: Yes Additional Instructions: f/u with pcp this week Allergies/Adverse Reactions: Allergies divalproex sodium [From Depakote] Adverse Reaction (Verified 12/19/16 19:15) ketorolac [From Toradol] Adverse Reaction (Verified 12/19/16 19:15) metoclopramide HCl [From Reglan] Adverse Reaction (Verified 12/19/16 19:15) Home Medications: Ambulatory Orders Carisoprodol [Soma] 350 mg PO PRN PRN 02/02/15 Amitriptyline HCl [Elavil] 100 mg PO DAILY 06/27/16 Doxepin HCl [Sinequan] 25 mg PO BEDTIME 08/01/16 Esomeprazole Magnesium [Nexium] 20 mg PO DAILY 10/16/16 Promethazine HCl [Phenergan Tab] 25 mg PO Q6H PRN #15 tablet 10/24/16 Disposition Discussed With: Patient, Family
--- NOTE | 2016-12-19 20:07 | CT ---
Exam: CT of the lumbar spine without intravenous contrast. Comparison: CT of the abdomen and pelvis performed 12/09/2016. Reason for exam: Low back pain. FINDINGS: No acute fracture or listhesis. Degenerative disease. Nonobstructive left renal calculi are seen. L1-L2: No significant central canal stenosis or foraminal narrowing. L2-L3: No significant central canal stenosis or foraminal narrowing. L3-L4: No significant central canal stenosis or foraminal narrowing. L4-L5: Broad-based disc bulge evident on the thecal sac and no significant foraminal stenosis L5-S1: Broad-based disc bulge with narrowing of the central canal and by foraminal stenosis seconda ry to the extruded disc and facet hypertrophy. Impression: 1. No acute fracture or listhesis in the lumbar spine. 2. Degenerative disease with broad-based disc bulges at L4-L5 and L5-S1. 3. Incidental note of a left renal calculus. Report faxed at 2003 hours on 12/19/2016.
--- NOTE | 2016-12-19 20:07 | CT ---
EXAM: CT of the abdomen pelvis without intravenous contrast 12/19/2016. Sagittal and coronal refor matted images obtained HISTORY: Right flank pain COMPARISON: 12/09/2016 FINDINGS: The liver shows no acute abnormality. Gallbladder has been removed. The adrenal glands and kidneys show no acute abnormality. Nonobstructive left-sided nephrolithiasis. No hydronephrosis or obstructing ureteral stone. The spleen and pancreas show no acute abnormality. There is no bowel obstruction. No evidence of appendicitis. The appendix is normal. Unremarkable urinary bladder. There is no free air or free fluid. The previously described high density within the subcutaneous fat of the right anterior abdominal wa ll appears unchanged. This could represent scarring or hematoma. This measures approximately 5.9 x 1.1 cm diameter, axial series image 76. IMPRESSION: 1. Stable nonspecific high density within the subcutaneous fat of the right anterior abdominal wall . 2. Status post cholecystectomy. 3. Nonobstructive left nephrolithiasis 4. No urinary or bowel obstruction and normal appendix 5. No acute inflammatory process identified within the abdomen or pelvis within the limitation of a noncontrast enhanced examination.
== END 2016-12-19 20:20 | disposition home or self-care (01) ==
LOC: ED 19:09
DX: M54.9 Dorsalgia, unspecified (principal)
CPT/HCPCS: 81001; 96372; 99282

== ENCOUNTER 2017-01-06 18:07 | Emergency (ER) ==
[2017-01-06 18:17] VITALS: BP 124/85; TEMP 97.3; BMI 35.2
--- NOTE | 2017-01-06 18:31 | ED.PDOC ---
General ED Provider: Dr. ROBBIE DWYER JR Chief Complaint: Headache Stated Complaint: PERSISTENT HEADACHE NO RESPONSE TO ADVIL MIGRAINE. LIKE PREVIOUS HEADACHES...CATHOLIC TO CATHOLIC FRONTAL- NO BENEFIT FROM PREVENTATIVE IN PAST, THREE PREVENTATIVE MEDS FELT TO HAVE CAUSED PANCREATITIS [ End ]97.3 87 20 10/10 124/85 01/10. [address] head 09/02/16 Time Seen by Physician: 18:31 Mode of Arrival: Walk-In Information Source: Patient Exam Limitations: No limitations Primary Care Provider: JEB KIRK Nursing and Triage Documentation Reviewed and Agree: No Review of Systems - Review Of Systems Constitutional: Reports: Malaise Eyes: Reports: Photophobia Ears, Nose, Mouth, Throat: Reports: No symptoms Respiratory: Reports: No symptoms Cardiac: Reports: No symptoms GI: Reports: Nausea, Vomiting : Reports: No symptoms Musculoskeletal: Reports: No symptoms Skin: Reports: No symptoms Neurological: Reports: Headache Endocrine: Reports: No symptoms Hematologic/Lymphatic: Reports: No symptoms All Other Systems: Other Past Medical History - Past Medical History Previously Healthy: Yes Endocrine: Reports: Hypothyroid Cardiovascular: Reports: Hypertension Respiratory: Reports: COPD, Asthma Hematological: Reports: None Gastrointestinal: Reports: GERD (nexium ), Pancreatitis (stents with pancreatitis-chronic pancreatitis) Genitourinary: Reports: None Neuro/Psych: Reports: Migraine, Seizure, Anxiety. Denies: Depression ( fluoxetine) Musculoskeletal: Reports: Arthritis, Back Pain, Other (soma phenergan) Cancer: Reports: None Last Menstrual Period: pancret arth migr asth sz anem Other Pertinent Past Medical History: Chronic back pain ,intrathecal pain pump and removal MEDIPORT - Surgical History General Surgical History: Reports: Hysterectomy (PARTIAL HYSTERECTOMY 2009), C- section, Cholecystectomy, Tonsillectomy, Adenoidectomy, Orthopedic (bilat. feet surg), Other (stents with pancreatitis-chronic pancreatitis) - Family History Family History: Reports: None - Social History Smoking Status: Never smoker Hx Substance Use: No Alcohol Screening: Occasionally - Immunizations Tetanus Shot up to Date: Yes Physical Exam - Physical Exam Appearance: Well-appearing, Obese Pain Distress: Moderate Eyes: PAULINO ENT: Ears normal, Nose normal, Oropharynx normal Neck: Supple Respiratory: Airway patent, Breath sounds clear, Breath sounds equal, Respirations nonlabored Cardiovascular: RRR, Pulses normal, No rub, No murmur GI/: Soft, Nontender, No masses, Bowel sounds normal, No Organomegaly Musculoskeletal: Normal strength, ROM intact, No edema, No calf tenderness Skin: Warm, Dry, Normal color Neurological: Sensation intact, Motor intact, Reflexes intact, Cranial nerves intact, Alert, Oriented Psychiatric: Affect appropriate, Mood appropriate Critical Care Note - Critical Care Note Total Time (mins): 5 Course - Course Orders, Labs, Meds: Orders Category Date Time Status Butorphanol Tartrate [Stadol] MEDS 01/06/17 18:29 Discontinued 2 mg IM ONCE STA Promethazine HCl [Phenergan 25 mg/ml Vial] MEDS 01/06/17 18:29 Discontinued 25 mg IM ONCE STA Medications Discontinued Medications Generic Name Dose Route Start Last Admin Trade Name Freq PRN Reason Stop Dose Admin Butorphanol Tartrate 2 mg 01/06/17 18:29 Stadol IM 01/06/17 18:30 ONCE STA Promethazine HCl 25 mg 01/06/17 18:29 Phenergan 25 Mg/Ml Vial IM 01/06/17 18:30 ONCE STA Vital Signs: Temp Pulse Resp BP Pulse Ox 01/06/17 18:12 97.3 F L 87 20 124/85 5 L Departure - Departure Time of Disposition: 18:41 Disposition: HOME SELF-CARE Discharge Problem: Headache, Migraine Instructions: Migraine Headache (ED) Condition: Good Pt referred to PMD for follow-up: Yes Additional Instructions: DISCUSS STADOL TREATMENT WITH NEUROLOGIST RETURN IF UNABLE TO KEEP LIQUIDS DOWN CLEAR LIQUIDS FOR 4-8 HOURS AFTER NAUSEA FOR 8-12 HOURS AFTER EMESIS RECHECKpmd THIS WEEK Allergies/Adverse Reactions: Allergies divalproex sodium [From Depakote] Adverse Reaction (Verified 01/06/17 18:19) ketorolac [From Toradol] Adverse Reaction (Verified 01/06/17 18:19) metoclopramide HCl [From Reglan] Adverse Reaction (Verified 01/06/17 18:19) Home Medications: Ambulatory Orders Carisoprodol [Soma] 350 mg PO PRN PRN 02/02/15 Amitriptyline HCl [Elavil] 100 mg PO DAILY 06/27/16 Doxepin HCl [Sinequan] 25 mg PO BEDTIME 08/01/16 Esomeprazole Magnesium [Nexium] 20 mg PO DAILY 10/16/16 Promethazine HCl [Phenergan Tab] 25 mg PO Q6H PRN #15 tablet 10/24/16 Amitriptyline HCl 25 mg PO TID 12/24/16
[2017-01-06] MEDS: STADOL IM STA (18:51)
[2017-01-06] MEDS: PHENERGAN 25 MG/ML VIAL IM STA (18:51)
== END 2017-01-06 19:20 | disposition home or self-care (01) ==
LOC: ED 18:07
DX: G43.909 Migraine, unspecified, not intractable, without status migrainosus (principal)
CPT/HCPCS: 96372; 99282

== ENCOUNTER 2017-01-14 20:09 | Emergency (ER) ==
[2017-01-14 20:09] VITALS: BMI 35.2
[2017-01-14 20:24] VITALS: BP 130/95; TEMP 98
[2017-01-14] MEDS ORDERED: PHENERGAN 25 MG/ML VIAL IM STA (20:45)
[2017-01-14] MEDS ORDERED: STADOL IM STA (20:45)
--- NOTE | 2017-01-14 21:17 | ED.PDOC ---
General ED Provider: Dr. JACE PALAFOX Chief Complaint: Headache Stated Complaint: Patient is a 46 year old female who c/o migraine headaches. States has Pain to forehead which she describes as similar to prior migraines. Rates 8/10. Nausea. Light/noise sensitive. Time Seen by Physician: 21:13 Mode of Arrival: Walk-In Information Source: Patient Primary Care Provider: JEB KIRK Nursing and Triage Documentation Reviewed and Agree: Yes Review of Systems - Review Of Systems Constitutional: Reports: No symptoms Eyes: Reports: Photophobia Ears, Nose, Mouth, Throat: Reports: No symptoms Respiratory: Reports: No symptoms Cardiac: Reports: No symptoms GI: Reports: Nausea, Poor appetite, Vomiting : Reports: No symptoms Musculoskeletal: Reports: No symptoms Skin: Reports: No symptoms Neurological: Reports: Anxiety, Headache Endocrine: Reports: No symptoms Hematologic/Lymphatic: Reports: No symptoms All Other Systems: Reviewed and Negative Past Medical History - Past Medical History Previously Healthy: Yes Endocrine: Reports: Hypothyroid Cardiovascular: Reports: Hypertension Respiratory: Reports: COPD, Asthma Hematological: Reports: None Gastrointestinal: Reports: GERD (nexium ), Pancreatitis (stents with pancreatitis-chronic pancreatitis) Genitourinary: Reports: None Neuro/Psych: Reports: Migraine, Seizure, Anxiety. Denies: Depression ( fluoxetine) Musculoskeletal: Reports: Arthritis, Back Pain, Other (soma phenergan) Cancer: Reports: None Last Menstrual Period: 2009 surg - partial hysterectomy Other Pertinent Past Medical History: Chronic back pain ,intrathecal pain pump and removal MEDIPORT - Surgical History General Surgical History: Reports: Hysterectomy (PARTIAL HYSTERECTOMY 2009), C- section, Cholecystectomy, Tonsillectomy, Adenoidectomy, Orthopedic (bilat. feet surg), Other (stents with pancreatitis-chronic pancreatitis) - Family History Family History: Reports: None - Social History Smoking Status: Never smoker Hx Substance Use: No Alcohol Screening: Occasionally - Immunizations Tetanus Shot up to Date: Yes Physical Exam - Physical Exam Appearance: Ill-appearing, Obese Ill-appearing: Moderate Pain Distress: Severe Eyes: PAULINO, EOMI, Conjunctiva clear ENT: Ears normal, Nose normal, Oropharynx normal Respiratory: Airway patent, Breath sounds clear, Breath sounds equal, Respirations nonlabored Cardiovascular: RRR, Pulses normal, No rub, No murmur GI/: Soft, Nontender, No masses, Bowel sounds normal, No Organomegaly Musculoskeletal: Normal strength, ROM intact, No edema, No calf tenderness Skin: Warm, Dry, Normal color Neurological: Sensation intact, Motor intact, Reflexes intact, Cranial nerves intact, Alert, Oriented Psychiatric: Anxious Critical Care Note - Critical Care Note Total Time (mins): 10 Course - Course Orders, Labs, Meds: Orders Category Date Time Status Butorphanol Tartrate [Stadol] MEDS 01/14/17 20:45 Discontinued 2 mg IM ONCE STA Promethazine HCl [Phenergan 25 mg/ml Vial] MEDS 01/14/17 20:45 Discontinued 25 mg IM ONCE STA Medications Discontinued Medications Generic Name Dose Route Start Last Admin Trade Name Freq PRN Reason Stop Dose Admin Butorphanol Tartrate 2 mg 01/14/17 20:45 01/14/17 20:57 Stadol IM 01/14/17 20:46 2 mg ONCE STA Administration Promethazine HCl 25 mg 01/14/17 20:45 01/14/17 20:57 Phenergan 25 Mg/Ml Vial IM 01/14/17 20:46 25 mg ONCE STA Administration Vital Signs: Temp Pulse Resp BP Pulse Ox 01/14/17 20:10 98 F 99 H 20 130/95 H 94 L Departure - Departure Time of Disposition: 21:30 Disposition: HOME SELF-CARE Discharge Problem: Migraine Qualifiers: Migraine type: without aura Status migrainosus presence: without status migrainosus Intractability: not intractable Qualifier Code: (G43.009) Migraine without aura, not intractable, without status migrainosus Instructions: Migraine Headache (ED) Condition: Fair Pt referred to PMD for follow-up: Yes Additional Instructions: Take medications as prescribed Follow up with neurologist in 3 days rest Prescriptions: Promethazine HCl [Phenergan Tab] 25 mg PO Q6H PRN #15 tablet PRN Reason: Nausea / Vomiting Zolmitriptan [Zomig] 5 mg PO Q6H PRN #14 tablet PRN Reason: Migrane headaches Allergies/Adverse Reactions: Allergies divalproex sodium [From Depakote] Adverse Reaction (Verified 01/14/17 20:17) ketorolac [From Toradol] Adverse Reaction (Verified 01/14/17 20:17) metoclopramide HCl [From Reglan] Adverse Reaction (Verified 01/14/17 20:17) Home Medications: Ambulatory Orders Carisoprodol [Soma] 350 mg PO PRN PRN 02/02/15 Amitriptyline HCl [Elavil] 100 mg PO DAILY 06/27/16 Doxepin HCl [Sinequan] 25 mg PO BEDTIME 08/01/16 Esomeprazole Magnesium [Nexium] 20 mg PO DAILY 10/16/16 Promethazine HCl [Phenergan Tab] 25 mg PO Q6H PRN #15 tablet 10/24/16 Promethazine HCl [Phenergan Tab] 25 mg PO Q6H PRN #15 tablet 01/14/17 Zolmitriptan [Zomig] 5 mg PO Q6H PRN #14 tablet 01/14/17 Disposition Discussed With: Patient, Family
== END 2017-01-14 21:25 | disposition home or self-care (01) ==
LOC: ED 20:09
DX: G43.009 Migraine without aura, not intractable, without status migrainosus (principal)
CPT/HCPCS: 96372; 99283

== ENCOUNTER 2017-01-27 17:20 | Emergency (ER) ==
[2017-01-27 17:26] VITALS: BP 119/83; TEMP 98.3; BMI 33.7
--- NOTE | 2017-01-27 17:32 | ED.PDOC ---
General ED Provider: Dr. ROBBIE DWYER JR Chief Complaint: Headache Stated Complaint: woke up with migraine headache this am--took imitrex but pain cont--usual migraine pain--has nausea and vomiting--sees neurologist on saturday and waiting on md for pain management referral[ End ]98.3 105 16 95% 119/[address] Head September 20 2016 Time Seen by Physician: 17:37 Mode of Arrival: Walk-In Information Source: Patient Exam Limitations: No limitations Primary Care Provider: JEB KIRK Nursing and Triage Documentation Reviewed and Agree: No Review of Systems - Review Of Systems Constitutional: Reports: No symptoms Eyes: Reports: Photophobia Ears, Nose, Mouth, Throat: Reports: No symptoms Respiratory: Reports: No symptoms Cardiac: Reports: No symptoms GI: Reports: No symptoms : Reports: No symptoms Musculoskeletal: Reports: No symptoms Skin: Reports: No symptoms Neurological: Reports: Headache Endocrine: Reports: No symptoms Hematologic/Lymphatic: Reports: No symptoms All Other Systems: Other Past Medical History - Past Medical History Previously Healthy: Yes Endocrine: Reports: Hypothyroid Cardiovascular: Reports: Hypertension Respiratory: Reports: COPD, Asthma Hematological: Reports: Anemia Gastrointestinal: Reports: GERD (nexium ), Pancreatitis (stents with pancreatitis-chronic pancreatitis) Genitourinary: Reports: None Neuro/Psych: Reports: Migraine, Seizure, Anxiety. Denies: Depression ( fluoxetine) Musculoskeletal: Reports: Arthritis, Back Pain, Other (soma phenergan) Cancer: Reports: None Last Menstrual Period: hysterectomy Other Pertinent Past Medical History: Chronic back pain ,intrathecal pain pump and removal MEDIPORT - Surgical History General Surgical History: Reports: Hysterectomy (PARTIAL HYSTERECTOMY 2009), C- section, Cholecystectomy, Tonsillectomy, Adenoidectomy, Orthopedic (bilat. feet surg;RIGHT AND LEFT FOOT SURGERY), Other (stents with pancreatitis-chronic pancreatitis, MEDIPORT ) - Family History Family History: Reports: None - Social History Smoking Status: Never smoker Hx Substance Use: No Alcohol Screening: Occasionally - Immunizations Tetanus Shot up to Date: Yes Physical Exam - Physical Exam Appearance: Ill-appearing, Obese Pain Distress: Moderate Eyes: PAULINO, EOMI, Conjunctiva clear ENT: Erythema (right ear tender on exam no othe rpain recc recheck next week) Neck: Supple Respiratory: Airway patent, Breath sounds clear, Breath sounds equal, Respirations nonlabored Cardiovascular: RRR, Pulses normal, No rub, No murmur GI/: Soft, Nontender, No masses, Bowel sounds normal, No Organomegaly Musculoskeletal: Normal strength, ROM intact, No edema, No calf tenderness Skin: Warm, Dry, Normal color Neurological: Sensation intact, Motor intact, Reflexes intact, Cranial nerves intact, Alert, Oriented (does not know day of month) Psychiatric: Affect appropriate, Mood appropriate Re-Evaluation - Re-Evaluation Time of Re-Evaluation: 07:10 Status: Improved (patient much improved on discharge note to see neurologist this week [facility] follow up with PMD) Critical Care Note - Critical Care Note Total Time (mins): 0 Course - Course Orders, Labs, Meds: Orders Category Date Time Status Butorphanol Tartrate [Stadol] MEDS 01/27/17 17:35 Discontinued 2 mg IM ONCE STA Promethazine HCl [Phenergan 25 mg/ml Vial] MEDS 01/27/17 17:35 Discontinued 25 mg IM ONCE STA Medications Discontinued Medications Generic Name Dose Route Start Last Admin Trade Name Sharathq PRN Reason Stop Dose Admin Butorphanol Tartrate 2 mg 01/27/17 17:35 01/27/17 17:45 Stadol IM 01/27/17 17:36 2 mg ONCE STA Administration Promethazine HCl 25 mg 01/27/17 17:35 01/27/17 17:45 Phenergan 25 Mg/Ml Vial IM 01/27/17 17:36 25 mg ONCE STA Administration Vital Signs: Temp Pulse Resp BP Pulse Ox 01/27/17 17:21 98.3 F 105 H 16 119/83 95 Departure - Departure Time of Disposition: 17:43 Disposition: HOME SELF-CARE Discharge Problem: Headache Instructions: Migraine Headache (ED) Condition: Good Pt referred to PMD for follow-up: Yes Additional Instructions: DISCUSS STADOL TREATMENT WITH NEUROLOGIST RETURN IF UNABLE TO KEEP LIQUIDS DOWN CLEAR LIQUIDS FOR 4-8 HOURS AFTER NAUSEA RECHECK PMD THIS WEEK Allergies/Adverse Reactions: Allergies divalproex sodium [From Depakote] Adverse Reaction (Verified 01/27/17 17:27) ketorolac [From Toradol] Adverse Reaction (Verified 01/27/17 17:27) metoclopramide HCl [From Reglan] Adverse Reaction (Verified 01/27/17 17:27) Home Medications: Ambulatory Orders Carisoprodol [Soma] 350 mg PO PRN PRN 02/02/15 Amitriptyline HCl [Elavil] 100 mg PO DAILY 06/27/16 Doxepin HCl [Sinequan] 25 mg PO BEDTIME 08/01/16 Esomeprazole Magnesium [Nexium] 20 mg PO DAILY 10/16/16 Promethazine HCl [Phenergan Tab] 25 mg PO Q6H PRN #15 tablet 01/14/17 Zolmitriptan [Zomig] 5 mg PO Q6H PRN #14 tablet 01/14/17
[2017-01-27] MEDS ORDERED: STADOL IM STA (17:35)
[2017-01-27] MEDS ORDERED: PHENERGAN 25 MG/ML VIAL IM STA (17:35)
== END 2017-01-27 18:17 | disposition home or self-care (01) ==
LOC: ED 17:20
DX: G43.909 Migraine, unspecified, not intractable, without status migrainosus (principal)
CPT/HCPCS: 96372; 99282

== ENCOUNTER 2017-02-08 12:23 | Emergency (ER) ==
[2017-02-08 12:24] VITALS: BMI 33.7
[2017-02-08 12:30] VITALS: BP 121/80; TEMP 97.9
--- NOTE | 2017-02-08 13:01 | ED.PDOC ---
General ED Provider: Dr. DEANNE LANG Chief Complaint: Headache Stated Complaint: Migraine headache x 5 days. HAYNES is at temples and behind her eyes. Light, sound and smells worsen pain. Nausea and vomiting intermittently. Imitrex tried without relief. Lifelong hx of migraines. Time Seen by Physician: 12:56 Mode of Arrival: Walk-In Information Source: Patient Exam Limitations: No limitations Primary Care Provider: JEB KIRK Nursing and Triage Documentation Reviewed and Agree: Yes Neurological Complaint Exam - Headache Complaint/Exam Duration: 5 days Symptoms Are: Still present Timing: Constant Episodes Lasting: Days Worst Headache Ever: No Initial Severity: Moderate Current Severity: Severe Location: Right, Left, Temporal Character: Reports: Throbbing, Migraine Aggravating: Reports: Bright lights (smells, sounds also worsen pain) Alleviating: Reports: None Associated Signs and Symptoms: Reports: Nausea, Vomiting Related History: Reports: Similar episode (previous migraine HAs with same sx) Related Surgical History: Reports: None SAH Risk Factors: Reports: None Meningitis Risk Factors: Reports: None SDH Risk Factors: Reports: None Temporal Arteritis Risk Factors: Reports: Female, Normal Head CT Within Last 12 Months: No Fundoscopic Exam: Present: Normal Findings Papilledema Present: No Temporal Artery Tenderness: Present: None Sinus Tenderness: Present: None TMJ Tenderness: Present: None Meningeal Signs Positive: No Pain on Passive Flexion-Positive Kernig's: No ROM Limited In: No Limitiations Focal Weakness: Present: None Focal Sensory Loss: Present: None Gait: Normal Nystagmus Present: No Gag Reflex Present: Yes [id number]: Normal Findings Romberg Test Positive: No Babinski Sign: Negative Right, Negative Left Heel to Toe Normal: Yes Differential Diagnoses: Migraine, Tension Headache Review of Systems - Review Of Systems Constitutional: Reports: No symptoms Eyes: Reports: Photophobia Ears, Nose, Mouth, Throat: Reports: No symptoms Respiratory: Reports: No symptoms Cardiac: Reports: No symptoms GI: Reports: Nausea, Vomiting : Reports: No symptoms Musculoskeletal: Reports: No symptoms Skin: Reports: No symptoms Neurological: Reports: Headache Endocrine: Reports: No symptoms Hematologic/Lymphatic: Reports: No symptoms All Other Systems: Reviewed and Negative Past Medical History - Past Medical History Previously Healthy: Yes Endocrine: Reports: Hypothyroid Cardiovascular: Reports: Hypertension Respiratory: Reports: COPD, Asthma Hematological: Reports: Anemia Gastrointestinal: Reports: GERD (nexium ), Pancreatitis (stents with pancreatitis-chronic pancreatitis) Genitourinary: Reports: None Neuro/Psych: Reports: Migraine, Seizure, Anxiety. Denies: Depression ( fluoxetine) Musculoskeletal: Reports: Arthritis, Back Pain, Other (soma phenergan) Cancer: Reports: None Last Menstrual Period: hysterectomy Other Pertinent Past Medical History: Chronic back pain ,intrathecal pain pump and removal MEDIPORT - Surgical History General Surgical History: Reports: Hysterectomy (PARTIAL HYSTERECTOMY 2009), C- section, Cholecystectomy, Tonsillectomy, Adenoidectomy, Orthopedic (bilat. feet surg;RIGHT AND LEFT FOOT SURGERY), Other (stents with pancreatitis-chronic pancreatitis, MEDIPORT ) - Family History Family History: Reports: None - Social History Smoking Status: Never smoker Hx Substance Use: No Alcohol Screening: Occasionally Physical Exam - Physical Exam Appearance: Well-appearing, Well-nourished, Obese Ill-appearing: None Pain Distress: Moderate Eyes: PAULINO, EOMI, Conjunctiva clear ENT: Ears normal, Nose normal, Oropharynx normal Neck: Supple Respiratory: Airway patent, Breath sounds clear, Breath sounds equal, Respirations nonlabored Cardiovascular: RRR, Pulses normal, No rub, No murmur GI/: Soft, Nontender, No masses, Bowel sounds normal, No Organomegaly Musculoskeletal: Normal strength, ROM intact, No edema, No calf tenderness Skin: Warm, Dry, Normal color Neurological: Sensation intact, Motor intact, Reflexes intact, Cranial nerves intact, Alert, Oriented Psychiatric: Affect appropriate, Mood appropriate Re-Evaluation - Re-Evaluation Time of Re-Evaluation: 13:45 Status: Improved Vital Signs Stable: Yes Pain Level: 0 Appearance: NAD Lungs: Clear Skin: Warm and Dry Neuro: Alert and Oriented X3 CV: RRR Critical Care Note - Critical Care Note Total Time (mins): 0 Course - Course Orders, Labs, Meds: Orders Category Date Time Status Butorphanol Tartrate [Stadol] MEDS 02/08/17 13:07 Discontinued 2 mg IM ONCE STA Diphenhydramine Inj [Benadryl] MEDS 02/08/17 13:08 Discontinued 25 mg IM ONCE STA Promethazine HCl [Phenergan 25 mg/ml Vial] MEDS 02/08/17 13:07 Discontinued 25 mg IM ONCE STA Medications Discontinued Medications Generic Name Dose Route Start Last Admin Trade Name Freq PRN Reason Stop Dose Admin Butorphanol Tartrate 2 mg 02/08/17 13:07 02/08/17 13:20 Stadol IM 02/08/17 13:08 2 mg ONCE STA Administration Diphenhydramine HCl 25 mg 02/08/17 13:08 02/08/17 13:19 Benadryl IM 02/08/17 13:09 25 mg ONCE STA Administration Promethazine HCl 25 mg 02/08/17 13:07 02/08/17 13:20 Phenergan 25 Mg/Ml Vial IM 02/08/17 13:08 25 mg ONCE STA Administration Vital Signs: Temp Pulse Resp BP Pulse Ox 02/08/17 12:24 97.9 F 98 H 16 121/80 93 L Departure - Departure Time of Disposition: 13:55 Disposition: HOME SELF-CARE Discharge Problem: Migraine headache without aura Instructions: Migraine Headache (ED) Condition: Good Pt referred to PMD for follow-up: No (see PCP if sx recur.) Additional Instructions: please schedule follow up appointment with physician as soon as possible Allergies/Adverse Reactions: Allergies divalproex sodium [From Depakote] Adverse Reaction (Verified 02/08/17 12:30) ketorolac [From Toradol] Adverse Reaction (Verified 02/08/17 12:30) metoclopramide HCl [From Reglan] Adverse Reaction (Verified 02/08/17 12:30) Home Medications: Ambulatory Orders Carisoprodol [Soma] 350 mg PO PRN PRN 02/02/15 Amitriptyline HCl [Elavil] 100 mg PO DAILY 06/27/16 Doxepin HCl [Sinequan] 25 mg PO BEDTIME 08/01/16 Esomeprazole Magnesium [Nexium] 20 mg PO DAILY 10/16/16 Promethazine HCl [Phenergan Tab] 25 mg PO Q6H PRN #15 tablet 01/14/17
[2017-02-08] MEDS ORDERED: PHENERGAN 25 MG/ML VIAL IM STA (13:07)
[2017-02-08] MEDS ORDERED: STADOL IM STA (13:07)
[2017-02-08] MEDS ORDERED: BENADRYL IM STA (13:08)
== END 2017-02-08 13:58 | disposition home or self-care (01) ==
LOC: ED 12:23
DX: G43.009 Migraine without aura, not intractable, without status migrainosus (principal)
CPT/HCPCS: 96372; 99283

== ENCOUNTER 2017-02-17 15:14 | Emergency (ER) ==
[2017-02-17 15:17] VITALS: BP 144/82; TEMP 98.6; BMI 33.0
[2017-02-17] MEDS ORDERED: ZOFRAN 4 MG/2 ML IM STA ×2 (15:53→15:54)
[2017-02-17] MEDS ORDERED: MORPHINE 4 MG/ML VIAL IVP STA (15:53)
[2017-02-17] MEDS ORDERED: MORPHINE 2 MG/ML SYRINGE IM STA ×2 (15:56→15:58)
[2017-02-17] MEDS ORDERED: PHENERGAN 25 MG/ML VIAL IM STA (15:57)
--- NOTE | 2017-02-17 16:00 | ED.PDOC ---
General ED Provider: Dr. JOE LIU Chief Complaint: Headache Stated Complaint: headache Time Seen by Physician: 15:18 (seen withs staff) Mode of Arrival: Walk-In Information Source: Patient Exam Limitations: No limitations Primary Care Provider: JEB KIRK Nursing and Triage Documentation Reviewed and Agree: Yes Neurological Complaint Exam - Headache Complaint/Exam Onset: Gradual Duration: 1 day Symptoms Are: Still present Timing: Constant Episodes Lasting: Hours Worst Headache Ever: No Initial Severity: Moderate Current Severity: Moderate Location: Left, Frontal, Temporal Character: Reports: Dull Aggravating: Reports: None Alleviating: Reports: None Associated Signs and Symptoms: Denies: Dizziness, Seizure, Nausea, Vomiting, Sinus pressure, Fever, Neck pain, Neck stiffness, Decreased LOC, Visual changes Related History: Reports: Similar episode Related Surgical History: Reports: None SAH Risk Factors: Reports: None Meningitis Risk Factors: Reports: None SDH Risk Factors: Reports: None Temporal Arteritis Risk Factors: Reports: Female, Normal Head CT Within Last 12 Months: Yes Fundoscopic Exam: Present: Normal Findings Papilledema Present: No Temporal Artery Tenderness: Present: None Sinus Tenderness: Present: None TMJ Tenderness: Present: None Glascow Coma Scale (see protocol): 15 Meningeal Signs Positive: No Pain on Passive Flexion-Positive Kernig's: No ROM Limited In: No Limitiations Focal Weakness: Present: None Focal Sensory Loss: Present: None Gait: Normal Nystagmus Present: No Gag Reflex Present: Yes Differential Diagnoses: Migraine Review of Systems - Review Of Systems Constitutional: Reports: No symptoms Eyes: Reports: No symptoms Ears, Nose, Mouth, Throat: Reports: No symptoms Respiratory: Reports: No symptoms Cardiac: Reports: No symptoms GI: Reports: No symptoms : Reports: No symptoms Musculoskeletal: Reports: No symptoms Skin: Reports: No symptoms Neurological: Reports: Headache Endocrine: Reports: No symptoms Hematologic/Lymphatic: Reports: No symptoms All Other Systems: Reviewed and Negative Past Medical History - Past Medical History Previously Healthy: Yes Endocrine: Reports: Hypothyroid Cardiovascular: Reports: Hypertension Respiratory: Reports: COPD, Asthma Hematological: Reports: Anemia Gastrointestinal: Reports: GERD (nexium ), Pancreatitis (stents with pancreatitis-chronic pancreatitis) Genitourinary: Reports: None Neuro/Psych: Reports: Migraine, Seizure, Anxiety. Denies: Depression ( fluoxetine) Musculoskeletal: Reports: Arthritis, Back Pain, Other (soma phenergan) Cancer: Reports: None Last Menstrual Period: none Other Pertinent Past Medical History: Chronic back pain ,intrathecal pain pump and removal MEDIPORT - Surgical History General Surgical History: Reports: Hysterectomy (PARTIAL HYSTERECTOMY 2009), C- section, Cholecystectomy, Tonsillectomy, Adenoidectomy, Orthopedic (bilat. feet surg;RIGHT AND LEFT FOOT SURGERY), Other (stents with pancreatitis-chronic pancreatitis, MEDIPORT ) - Family History Family History: Reports: None - Social History Smoking Status: Never smoker Hx Substance Use: No Alcohol Screening: Occasionally Physical Exam - Physical Exam Appearance: Well-appearing, No pain distress, Well-nourished Eyes: PAULINO, EOMI, Conjunctiva clear ENT: Ears normal, Nose normal, Oropharynx normal Respiratory: Rhonchi Cardiovascular: RRR, Pulses normal, No rub, No murmur GI/: Soft, Nontender, No masses, Bowel sounds normal, No Organomegaly Musculoskeletal: Normal strength, ROM intact, No edema, No calf tenderness Skin: Warm, Dry, Normal color Neurological: Sensation intact, Motor intact, Reflexes intact, Cranial nerves intact, Alert, Oriented Psychiatric: Affect appropriate, Mood appropriate Critical Care Note - Critical Care Note Total Time (mins): 0 Course - Course Orders, Labs, Meds: Orders Category Date Time Status UA [URINALYSIS C & S IF INDICATED] Stat LAB 02/17/17 15:57 Uncollected Morphine Sulfate [Morphine 2 mg/ml Syringe] MEDS 02/17/17 15:56 Stat 2 mg IM ONCE STA Ondansetron HCl/Pf [Zofran 4 mg/2 ml] MEDS 02/17/17 15:54 Stop Req 4 mg IM ONCE STA Promethazine HCl [Phenergan 25 mg/ml Vial] MEDS 02/17/17 15:57 Stat 25 mg IM ONCE STA Medications Generic Name Dose Route Start Last Admin Trade Name Freq PRN Reason Stop Dose Admin Promethazine HCl 25 mg 02/17/17 15:57 Phenergan 25 Mg/Ml Vial IM 02/17/17 15:58 ONCE STA Discontinued Medications Generic Name Dose Route Start Last Admin Trade Name Freq PRN Reason Stop Dose Admin Morphine Sulfate 2 mg 02/17/17 15:56 Morphine 2 Mg/Ml Syringe IM 02/17/17 15:57 ONCE STA Vital Signs: Temp Pulse Resp BP Pulse Ox 02/17/17 15:14 98.6 F 101 H 20 144/82 H 96 Departure - Departure Time of Disposition: 16:00 Disposition: HOME SELF-CARE Discharge Problem: Headache Migraine Qualifiers: Migraine type: unspecified Status migrainosus presence: without status migrainosus Intractability: not intractable Qualified Code(s): G43.909 - Migraine, unspecified, not intractable, without status migrainosus Instructions: Acute Headache (ED) Condition: Good Pt referred to PMD for follow-up: Yes Additional Instructions: Please call your Family Physician as soon as possible to schedule a follow-up appointment. Allergies/Adverse Reactions: Allergies divalproex sodium [From Depakote] Adverse Reaction (Verified 02/17/17 15:18) ketorolac [From Toradol] Adverse Reaction (Verified 02/17/17 15:18) metoclopramide HCl [From Reglan] Adverse Reaction (Verified 02/17/17 15:18) Home Medications: Ambulatory Orders Carisoprodol [Soma] 350 mg PO PRN PRN 02/02/15 Amitriptyline HCl [Elavil] 100 mg PO DAILY 06/27/16 Doxepin HCl [Sinequan] 25 mg PO BEDTIME 08/01/16 Esomeprazole Magnesium [Nexium] 20 mg PO DAILY 10/16/16 Promethazine HCl [Phenergan Tab] 25 mg PO Q6H PRN #15 tablet 01/14/17
[2017-02-17 16:10] LABS: BILIRUBIN,URINE Negative (NEGATIVE); KETONES,URINE Negative (NEGATIVE); LEUKOCYTE ESTERASE ,URINE Negative (NEGATIVE); NITRITE,URINE Negative (NEGATIVE); PH,URINE 5.5 (5-9); PROTEIN,URINE Negative (NEGATIVE); URINE, BLOOD Negative (NEGATIVE)
[2017-02-17 16:15] LABS: ADD URINE MICROSCOPIC NO
== END 2017-02-17 16:29 | disposition home or self-care (01) ==
LOC: ED 15:14
DX: G43.909 Migraine, unspecified, not intractable, without status migrainosus (principal)
CPT/HCPCS: 81001; 96372; 99283

== ENCOUNTER 2017-02-18 19:46 | Emergency (ER) ==
[2017-02-18 19:47] VITALS: BMI 33.0
[2017-02-18 19:53] VITALS: BP 138/87; TEMP 98.1
[2017-02-18] MEDS ORDERED: MORPHINE 2 MG/ML SYRINGE IM STA (20:16)
[2017-02-18] MEDS ORDERED: PHENERGAN 25 MG/ML VIAL IM STA (20:16)
--- NOTE | 2017-02-18 20:20 | ED.PDOC ---
General ED Provider: Dr. YAYA STUBBS Chief Complaint: Headache Stated Complaint: Patient was here yesterday for the same reason, says she has the headache today, needs help Time Seen by Physician: 20:18 Mode of Arrival: Walk-In Information Source: Patient Primary Care Provider: JEB KIRK Nursing and Triage Documentation Reviewed and Agree: Yes Neurological Complaint Exam - Headache Complaint/Exam Onset: Gradual Symptoms Are: Still present Timing: Constant Episodes Lasting: Hours Worst Headache Ever: No Initial Severity: Moderate Current Severity: Moderate Location: Right, Left, Frontal Character: Reports: Dull, Throbbing, Migraine Aggravating: Reports: Bright lights Alleviating: Reports: None Associated Signs and Symptoms: Denies: Dizziness, Seizure, Nausea, Vomiting, Sinus pressure, Fever, Neck pain, Neck stiffness, Decreased LOC, Visual changes Related History: Reports: Similar episode Related Surgical History: Reports: None SAH Risk Factors: Reports: None Meningitis Risk Factors: Reports: None SDH Risk Factors: Reports: None Temporal Arteritis Risk Factors: Reports: None Normal Head CT Within Last 12 Months: Yes Temporal Artery Tenderness: Present: None Sinus Tenderness: Present: None TMJ Tenderness: Present: None Meningeal Signs Positive: No Pain on Passive Flexion-Positive Kernig's: No ROM Limited In: No Limitiations Focal Weakness: Present: None Focal Sensory Loss: Present: None Gait: Normal Nystagmus Present: No Gag Reflex Present: No [id number]: Normal Findings Romberg Test Positive: No Babinski Sign: Negative Right, Negative Left Heel to Toe Normal: No Differential Diagnoses: Migraine Review of Systems - Review Of Systems Constitutional: Reports: No symptoms Eyes: Reports: No symptoms Ears, Nose, Mouth, Throat: Reports: No symptoms Respiratory: Reports: No symptoms Cardiac: Reports: No symptoms GI: Reports: No symptoms : Reports: No symptoms Musculoskeletal: Reports: No symptoms Skin: Reports: No symptoms Neurological: Reports: Headache Endocrine: Reports: No symptoms Hematologic/Lymphatic: Reports: No symptoms All Other Systems: Reviewed and Negative Past Medical History - Past Medical History Previously Healthy: Yes Endocrine: Reports: Hypothyroid Cardiovascular: Reports: Hypertension Respiratory: Reports: COPD, Asthma Hematological: Reports: Anemia Gastrointestinal: Reports: GERD (nexium ), Pancreatitis (stents with pancreatitis-chronic pancreatitis) Genitourinary: Reports: None Neuro/Psych: Reports: Migraine, Seizure, Anxiety. Denies: Depression ( fluoxetine) Musculoskeletal: Reports: Arthritis, Back Pain, Other (soma phenergan) Cancer: Reports: None Last Menstrual Period: na Other Pertinent Past Medical History: Chronic back pain ,intrathecal pain pump and removal MEDIPORT - Surgical History General Surgical History: Reports: Hysterectomy (PARTIAL HYSTERECTOMY 2009), C- section, Cholecystectomy, Tonsillectomy, Adenoidectomy, Orthopedic (bilat. feet surg;RIGHT AND LEFT FOOT SURGERY), Other (stents with pancreatitis-chronic pancreatitis, MEDIPORT ) - Family History Family History: Reports: None - Social History Smoking Status: Never smoker Hx Substance Use: No Alcohol Screening: Occasionally - Immunizations Tetanus Shot up to Date: Yes Physical Exam - Physical Exam Appearance: Ill-appearing, Obese Eyes: PAULINO, EOMI ENT: Ears normal, Nose normal, Oropharynx normal Respiratory: Airway patent, Breath sounds clear, Breath sounds equal, Respirations nonlabored Cardiovascular: RRR, Pulses normal, No rub, No murmur GI/: Soft, Nontender, No masses, Bowel sounds normal, No Organomegaly Musculoskeletal: Normal strength, ROM intact, No edema, No calf tenderness Skin: Warm, Dry, Normal color Neurological: Sensation intact, Motor intact, Reflexes intact, Cranial nerves intact, Alert, Oriented Psychiatric: Affect appropriate, Mood appropriate Critical Care Note - Critical Care Note Total Time (mins): 0 Course - Course Orders, Labs, Meds: Orders Category Date Time Status Morphine Sulfate [Morphine 2 mg/ml Syringe] MEDS 02/18/17 20:16 Stat 2 mg IM ONCE STA Promethazine HCl [Phenergan 25 mg/ml Vial] MEDS 02/18/17 20:16 Stat 25 mg IM ONCE STA Medications Discontinued Medications Generic Name Dose Route Start Last Admin Trade Name Sharathq PRN Reason Stop Dose Admin Morphine Sulfate 2 mg 02/18/17 20:16 Morphine 2 Mg/Ml Syringe IM 02/18/17 20:17 ONCE STA Promethazine HCl 25 mg 02/18/17 20:16 Phenergan 25 Mg/Ml Vial IM 02/18/17 20:17 ONCE STA Vital Signs: Temp Pulse Resp BP Pulse Ox 02/18/17 19:47 98.1 F 110 H 18 138/87 95 Departure - Departure Time of Disposition: 20:22 Disposition: HOME SELF-CARE Discharge Problem: Migraine Qualifiers: Migraine type: without aura Status migrainosus presence: without status migrainosus Intractability: intractable Qualified Code(s): G43.019 - Migraine without aura, intractable, without status migrainosus Instructions: Migraine Headache (ED) Condition: Good Pt referred to PMD for follow-up: Yes Additional Instructions: needs f/u with neuro. f/u at [facility] Allergies/Adverse Reactions: Allergies divalproex sodium [From Depakote] Adverse Reaction (Verified 02/17/17 15:18) ketorolac [From Toradol] Adverse Reaction (Verified 02/17/17 15:18) metoclopramide HCl [From Reglan] Adverse Reaction (Verified 02/17/17 15:18) Home Medications: Ambulatory Orders Carisoprodol [Soma] 350 mg PO PRN PRN 02/02/15 Amitriptyline HCl [Elavil] 100 mg PO DAILY 06/27/16 Doxepin HCl [Sinequan] 25 mg PO BEDTIME 08/01/16 Esomeprazole Magnesium [Nexium] 20 mg PO DAILY 10/16/16 Promethazine HCl [Phenergan Tab] 25 mg PO Q6H PRN #15 tablet 01/14/17 Disposition Discussed With: Patient, Family
== END 2017-02-18 20:55 | disposition home or self-care (01) ==
LOC: ED 19:46
DX: G43.019 Migraine without aura, intractable, without status migrainosus (principal)
CPT/HCPCS: 96372; 99283

== ENCOUNTER 2017-04-14 13:33 | Emergency (ER) ==
[2017-04-14 13:33] VITALS: BMI 33.7
[2017-04-14 13:36] VITALS: BP 169/115; TEMP 97.8
[2017-04-14] MEDS ORDERED: ZOFRAN 4 MG/2 ML IM STA (13:52)
[2017-04-14] MEDS ORDERED: MORPHINE 2 MG/ML SYRINGE IM STA (13:54)
--- NOTE | 2017-04-14 13:58 | ED.PDOC ---
General ED Provider: Dr. JOE LIU Chief Complaint: Headache Stated Complaint: headache Time Seen by Physician: 13:33 Mode of Arrival: Walk-In Information Source: Patient Exam Limitations: No limitations Primary Care Provider: JEB KIRK Nursing and Triage Documentation Reviewed and Agree: Yes Neurological Complaint Exam - Headache Complaint/Exam Onset: Gradual Duration: today Symptoms Are: Still present Timing: Constant Episodes Lasting: Hours Worst Headache Ever: No Initial Severity: Moderate Current Severity: Moderate Location: Right, Frontal, Temporal Character: Reports: Dull Aggravating: Reports: None Alleviating: Reports: None Associated Signs and Symptoms: Denies: Dizziness, Seizure, Nausea, Vomiting, Sinus pressure, Fever, Neck pain, Neck stiffness, Decreased LOC, Visual changes Related History: Reports: Similar episode Related Surgical History: Reports: None SAH Risk Factors: Reports: None Meningitis Risk Factors: Reports: None SDH Risk Factors: Reports: None Temporal Arteritis Risk Factors: Reports: Female, Normal Head CT Within Last 12 Months: Yes Fundoscopic Exam: Present: Normal Findings Papilledema Present: No Temporal Artery Tenderness: Present: None Sinus Tenderness: Present: None TMJ Tenderness: Present: None Glascow Coma Scale (see protocol): 15 Meningeal Signs Positive: No Pain on Passive Flexion-Positive Kernig's: No ROM Limited In: No Limitiations Focal Weakness: Present: None Focal Sensory Loss: Present: None Gait: Normal Nystagmus Present: No Gag Reflex Present: Yes [id number]: Normal Findings Babinski Sign: Negative Right, Negative Left Differential Diagnoses: Migraine Review of Systems - Review Of Systems Constitutional: Reports: No symptoms Eyes: Reports: No symptoms Ears, Nose, Mouth, Throat: Reports: No symptoms Respiratory: Reports: No symptoms Cardiac: Reports: No symptoms GI: Reports: No symptoms : Reports: No symptoms Musculoskeletal: Reports: No symptoms Skin: Reports: No symptoms Neurological: Reports: Headache Endocrine: Reports: No symptoms Hematologic/Lymphatic: Reports: No symptoms All Other Systems: Reviewed and Negative Past Medical History - Past Medical History Previously Healthy: Yes Endocrine: Reports: Hypothyroid Cardiovascular: Reports: Hypertension Respiratory: Reports: COPD, Asthma Hematological: Reports: Anemia Gastrointestinal: Reports: GERD (nexium ), Pancreatitis (stents with pancreatitis-chronic pancreatitis) Genitourinary: Reports: None Neuro/Psych: Reports: Migraine, Seizure, Anxiety. Denies: Depression ( fluoxetine) Musculoskeletal: Reports: Arthritis, Back Pain, Other (soma phenergan) Cancer: Reports: None Last Menstrual Period: HSYTERECOMY Other Pertinent Past Medical History: Chronic back pain ,intrathecal pain pump and removal MEDIPORT - Surgical History General Surgical History: Reports: Hysterectomy (PARTIAL HYSTERECTOMY 2009), C- section, Cholecystectomy, Tonsillectomy, Adenoidectomy, Orthopedic (bilat. feet surg;RIGHT AND LEFT FOOT SURGERY), Other (stents with pancreatitis-chronic pancreatitis, MEDIPORT ) - Family History Family History: Reports: None - Social History Smoking Status: Never smoker Hx Substance Use: No Alcohol Screening: Occasionally - Immunizations Tetanus Shot up to Date: No Influenza Vaccine within 12 Months: No Pneumococcal Vaccine up to Date: No Physical Exam - Physical Exam Appearance: Well-appearing, No pain distress, Well-nourished Eyes: PAULINO, EOMI, Conjunctiva clear ENT: Ears normal, Nose normal, Oropharynx normal Respiratory: Airway patent, Breath sounds clear, Breath sounds equal, Respirations nonlabored Cardiovascular: RRR, Pulses normal, No rub, No murmur GI/: Soft, Nontender, No masses, Bowel sounds normal, No Organomegaly Musculoskeletal: Normal strength, ROM intact, No edema, No calf tenderness Skin: Warm, Dry, Normal color Neurological: Sensation intact, Motor intact, Reflexes intact, Cranial nerves intact, Alert, Oriented Psychiatric: Affect appropriate, Mood appropriate Critical Care Note - Critical Care Note Total Time (mins): 0 Course - Course Orders, Labs, Meds: Orders Category Date Time Status Morphine Sulfate [Morphine 2 mg/ml Syringe] MEDS 04/14/17 13:54 Stat 4 mg IM ONCE STA Ondansetron HCl/Pf [Zofran 4 mg/2 ml] MEDS 04/14/17 13:52 Stat 4 mg IM ONCE STA Medications Discontinued Medications Generic Name Dose Route Start Last Admin Trade Name Freq PRN Reason Stop Dose Admin Morphine Sulfate 4 mg 04/14/17 13:54 Morphine 2 Mg/Ml Syringe IM 04/14/17 13:55 ONCE STA Ondansetron HCl 4 mg 04/14/17 13:52 Zofran 4 Mg/2 Ml IM 04/14/17 13:53 ONCE STA Vital Signs: Temp Pulse Resp BP Pulse Ox 04/14/17 13:33 97.8 F 110 H 18 169/115 H 95 Departure - Departure Time of Disposition: 13:57 Disposition: HOME SELF-CARE Discharge Problem: Headache Migraine Qualifiers: Migraine type: unspecified Status migrainosus presence: without status migrainosus Intractability: not intractable Qualified Code(s): G43.909 - Migraine, unspecified, not intractable, without status migrainosus Instructions: Migraine Headache (ED), General Headache (ED) Condition: Good Pt referred to PMD for follow-up: Yes Allergies/Adverse Reactions: Allergies divalproex sodium [From Depakote] Adverse Reaction (Verified 04/14/17 13:36) ketorolac [From Toradol] Adverse Reaction (Verified 04/14/17 13:36) metoclopramide HCl [From Reglan] Adverse Reaction (Verified 04/14/17 13:36) Home Medications: Ambulatory Orders Carisoprodol [Soma] 350 mg PO PRN PRN 02/02/15 Amitriptyline HCl [Elavil] 100 mg PO DAILY 06/27/16 Doxepin HCl [Sinequan] 25 mg PO BEDTIME 08/01/16 Esomeprazole Magnesium [Nexium] 20 mg PO DAILY 10/16/16 Promethazine HCl [Phenergan Tab] 25 mg PO Q6H PRN #15 tablet 01/14/17
== END 2017-04-14 14:20 | disposition home or self-care (01) ==
LOC: ED 13:33
DX: G43.909 Migraine, unspecified, not intractable, without status migrainosus (principal)
CPT/HCPCS: 96372; 99283

== ENCOUNTER 2017-04-28 11:48 | Emergency (ER) ==
[2017-04-28 11:56] VITALS: BP 146/86; TEMP 98.7; BMI 34.1
[2017-04-28] MEDS ORDERED: BOOSTRIX IM ONE (12:05)
--- NOTE | 2017-04-28 12:08 | ED.PDOC ---
General ED Provider: Dr. YAYA STUBBS Chief Complaint: Finger Laceration Stated Complaint: Had cut on the back of the Index finger, it finally stopped bleeding now. did not had Tetanus in long time. Time Seen by Physician: 12:06 Mode of Arrival: Walk-In Information Source: Patient Primary Care Provider: JEB KIRK Nursing and Triage Documentation Reviewed and Agree: Yes Skin Complaint Exam - Laceration/Upper Ext. Complaint/Exam Location of Injury: Right (index finger) Mechanism of Injury: Laceration (superficial.) Symptoms Are: Still present Initial Severity: Mild Current Severity: Mild Aggravating: Movement Alleviating: None Associated Signs and Symptoms: Denies: Fever, Chills, Erythema, Numbness, Tingling Differential Diagnoses: Laceration Review of Systems - Review Of Systems Constitutional: Reports: No symptoms Eyes: Reports: No symptoms Ears, Nose, Mouth, Throat: Reports: No symptoms Respiratory: Reports: No symptoms Cardiac: Reports: No symptoms GI: Reports: No symptoms : Reports: No symptoms Musculoskeletal: Reports: No symptoms Skin: Reports: No symptoms Neurological: Reports: No symptoms Endocrine: Reports: No symptoms Hematologic/Lymphatic: Reports: No symptoms All Other Systems: Reviewed and Negative Past Medical History - Past Medical History Previously Healthy: Yes Endocrine: Reports: Hypothyroid Cardiovascular: Reports: Hypertension Respiratory: Reports: COPD, Asthma Hematological: Reports: Anemia Gastrointestinal: Reports: GERD (nexium ), Pancreatitis (stents with pancreatitis-chronic pancreatitis) Genitourinary: Reports: None Neuro/Psych: Reports: Migraine, Seizure, Anxiety. Denies: Depression ( fluoxetine) Musculoskeletal: Reports: Arthritis, Back Pain, Other (soma phenergan) Cancer: Reports: None Last Menstrual Period: na Other Pertinent Past Medical History: Chronic back pain ,intrathecal pain pump and removal MEDIPORT - Surgical History General Surgical History: Reports: Hysterectomy (PARTIAL HYSTERECTOMY 2009), C- section, Cholecystectomy, Tonsillectomy, Adenoidectomy, Orthopedic (bilat. feet surg;RIGHT AND LEFT FOOT SURGERY), Other (stents with pancreatitis-chronic pancreatitis, MEDIPORT ) - Family History Family History: Reports: None - Social History Smoking Status: Never smoker Hx Substance Use: No Alcohol Screening: Occasionally - Immunizations Tetanus Shot up to Date: No Influenza Vaccine within 12 Months: No Pneumococcal Vaccine up to Date: No Physical Exam - Physical Exam Appearance: Well-appearing, No pain distress, Well-nourished Eyes: PAULINO, EOMI, Conjunctiva clear ENT: Ears normal, Nose normal, Oropharynx normal Respiratory: Airway patent, Breath sounds clear, Breath sounds equal, Respirations nonlabored Cardiovascular: RRR, Pulses normal, No rub, No murmur GI/: Soft, Nontender, No masses, Bowel sounds normal, No Organomegaly Musculoskeletal: Normal strength, ROM intact, No edema, No calf tenderness Skin: Warm (rt Index finger superficial cut, dried blood, 1 cm), Dry, Normal color Neurological: Sensation intact, Motor intact, Reflexes intact, Cranial nerves intact, Alert, Oriented Psychiatric: Affect appropriate, Mood appropriate Critical Care Note - Critical Care Note Total Time (mins): 0 Course - Course Orders, Labs, Meds: Orders Category Date Time Status Diphth,Pertuss(Acell),Tet Vac [Boostrix] MEDS 04/28/17 12:05 Once 0.5 ml IM .ONCE ONE Medications Generic Name Dose Route Start Last Admin Trade Name Freq PRN Reason Stop Dose Admin Diphtheria/Pertussis/Tetanus Vacc 0.5 ml 04/28/17 12:05 Boostrix IM 04/28/17 12:06 .ONCE ONE Vital Signs: Temp Pulse Resp BP Pulse Ox 04/28/17 11:51 98.7 F 108 H 20 146/86 H 96 Departure - Departure Time of Disposition: 12:09 Disposition: HOME SELF-CARE Discharge Problem: Laceration of finger Instructions: Laceration (ED) Condition: Good Pt referred to PMD for follow-up: No Additional Instructions: wound hygiene Keep finger elevated. Allergies/Adverse Reactions: Allergies divalproex sodium [From Depakote] Adverse Reaction (Verified 04/14/17 13:36) ketorolac [From Toradol] Adverse Reaction (Verified 04/14/17 13:36) metoclopramide HCl [From Reglan] Adverse Reaction (Verified 04/14/17 13:36) Home Medications: Ambulatory Orders Carisoprodol [Soma] 350 mg PO PRN PRN 02/02/15 Amitriptyline HCl [Elavil] 100 mg PO DAILY 06/27/16 Doxepin HCl [Sinequan] 25 mg PO BEDTIME 08/01/16 Esomeprazole Magnesium [Nexium] 20 mg PO DAILY 10/16/16 Promethazine HCl [Phenergan Tab] 25 mg PO Q6H PRN #15 tablet 01/14/17 Disposition Discussed With: Patient
== END 2017-04-28 13:00 | disposition home or self-care (01) ==
LOC: ED 11:48
DX: S61.210A Laceration without foreign body of right index finger without damage to nail, initial encounter (principal); W45.8XXA Other foreign body or object entering through skin, initial encounter
CPT/HCPCS: 90471; 90715; 99283

== ENCOUNTER 2017-05-07 19:14 | Emergency (ER) ==
[2017-05-07 19:16] VITALS: BMI 33.7
[2017-05-07] MEDS ORDERED: PHENERGAN 25 MG/ML VIAL IM STA (20:01)
[2017-05-07] MEDS ORDERED: IMITREX SUBCUT STA (20:01)
--- NOTE | 2017-05-07 20:05 | ED.PDOC ---
General ED Provider: Dr. JACE PALAFOX Chief Complaint: Headache Stated Complaint: Patient is a 47 year old female who has a history of migranes comes to the ER with acute migrane heacahe across the forehead with nausea but no vomiting. not on any prevenatative medications. Insurance would not cover imitrex previosly prescribed. Time Seen by Physician: 20:02 Mode of Arrival: Walk-In Information Source: Patient Exam Limitations: No limitations Nursing and Triage Documentation Reviewed and Agree: Yes Neurological Complaint Exam - Headache Complaint/Exam Onset: Gradual Duration: 1 day Symptoms Are: Still present Timing: Constant Worst Headache Ever: No Initial Severity: Severe Current Severity: Severe Location: Frontal Character: Reports: Throbbing, Typical headache, Migraine Aggravating: Reports: Bright lights Alleviating: Reports: None Associated Signs and Symptoms: Reports: Nausea. Denies: Dizziness, Seizure, Vomiting, Sinus pressure, Fever, Neck pain, Neck stiffness, Decreased LOC, Visual changes Related Surgical History: Reports: None SAH Risk Factors: Reports: None Meningitis Risk Factors: Reports: None SDH Risk Factors: Reports: None Temporal Arteritis Risk Factors: Reports: None Normal Head CT Within Last 12 Months: Yes Temporal Artery Tenderness: Present: None Sinus Tenderness: Present: None TMJ Tenderness: Present: None Glascow Coma Scale (see protocol): 15 Meningeal Signs Positive: No Pain on Passive Flexion-Positive Kernig's: No Focal Weakness: Present: None Focal Sensory Loss: Present: None Gait: Normal Nystagmus Present: No Gag Reflex Present: No [id number]: Normal Findings Romberg Test Positive: No Babinski Sign: Negative Right, Negative Left Heel to Toe Normal: No Head Picture: 1 - pain Differential Diagnoses: Migraine, Tension Headache, Viral Syndrome Review of Systems - Review Of Systems Constitutional: Reports: No symptoms, Loss of appetite Eyes: Reports: Photophobia Ears, Nose, Mouth, Throat: Reports: No symptoms Respiratory: Reports: No symptoms Cardiac: Reports: No symptoms GI: Reports: Nausea. Denies: Vomiting : Reports: No symptoms Musculoskeletal: Reports: No symptoms Neurological: Reports: Headache All Other Systems: Reviewed and Negative Past Medical History - Past Medical History Previously Healthy: Yes Endocrine: Reports: Hypothyroid Cardiovascular: Reports: Hypertension Respiratory: Reports: COPD, Asthma Hematological: Reports: Anemia Gastrointestinal: Reports: GERD (nexium ), Pancreatitis (stents with pancreatitis-chronic pancreatitis) Genitourinary: Reports: None Neuro/Psych: Reports: Migraine, Seizure, Anxiety. Denies: Depression ( fluoxetine) Musculoskeletal: Reports: Arthritis, Back Pain, Other (soma phenergan) Cancer: Reports: None Last Menstrual Period: HYSTERECTOMY Other Pertinent Past Medical History: Chronic back pain ,intrathecal pain pump and removal MEDIPORT - Surgical History General Surgical History: Reports: Hysterectomy (PARTIAL HYSTERECTOMY 2009), C- section, Cholecystectomy, Tonsillectomy, Adenoidectomy, Orthopedic (bilat. feet surg;RIGHT AND LEFT FOOT SURGERY), Other (stents with pancreatitis-chronic pancreatitis, MEDIPORT ) - Family History Family History: Reports: None - Social History Smoking Status: Never smoker Hx Substance Use: No Alcohol Screening: Occasionally - Immunizations Tetanus Shot up to Date: Yes Influenza Vaccine within 12 Months: No Pneumococcal Vaccine up to Date: No Physical Exam - Physical Exam Appearance: Ill-appearing Ill-appearing: Moderate Pain Distress: None Eyes: PAULINO, EOMI, Conjunctiva clear Neck: Supple Respiratory: Airway patent, Breath sounds clear, Breath sounds equal, Respirations nonlabored Cardiovascular: RRR, Pulses normal, No rub, No murmur GI/: Soft (obese ) Musculoskeletal: Normal strength, ROM intact, No edema, No calf tenderness Skin: Warm, Dry, Normal color Neurological: Sensation intact, Motor intact, Reflexes intact, Cranial nerves intact, Alert, Oriented Psychiatric: Anxious Critical Care Note - Critical Care Note Total Time (mins): 0 Course - Course Orders, Labs, Meds: Orders Category Date Time Status Promethazine HCl [Phenergan 25 mg/ml Vial] MEDS 05/07/17 20:01 Discontinued 25 mg IM ONCE STA Sumatriptan Succinate [Imitrex] MEDS 05/07/17 20:01 Discontinued 6 mg SUBCUT ONCE STA Medications Discontinued Medications Generic Name Dose Route Start Last Admin Trade Name Freq PRN Reason Stop Dose Admin Promethazine HCl 25 mg 05/07/17 20:01 05/07/17 20:09 Phenergan 25 Mg/Ml Vial IM 05/07/17 20:02 25 mg ONCE STA Administration Sumatriptan Succinate 6 mg 05/07/17 20:01 05/07/17 20:08 Imitrex SUBCUT 05/07/17 20:02 6 mg ONCE STA Administration Vital Signs: Temp Pulse Resp BP Pulse Ox 05/07/17 19:14 98 F 106 H 20 153/104 H 95 Departure - Departure Time of Disposition: 21:00 Disposition: HOME SELF-CARE Discharge Problem: Headache Instructions: Migraine Headache (ED) Condition: Fair Pt referred to PMD for follow-up: Yes Prescriptions: Promethazine HCl [Phenergan Tab] 25 mg PO Q6H PRN #15 tablet PRN Reason: Nausea / Vomiting Topiramate [Topamax] 50 mg PO BID #30 tablet Allergies/Adverse Reactions: Allergies divalproex sodium [From Depakote] Adverse Reaction (Verified 05/07/17 19:16) ketorolac [From Toradol] Adverse Reaction (Verified 05/07/17 19:16) metoclopramide HCl [From Reglan] Adverse Reaction (Verified 05/07/17 19:16) Home Medications: Ambulatory Orders Carisoprodol [Soma] 350 mg PO PRN PRN 02/02/15 Amitriptyline HCl [Elavil] 100 mg PO DAILY 06/27/16 Doxepin HCl [Sinequan] 25 mg PO BEDTIME 08/01/16 Esomeprazole Magnesium [Nexium] 20 mg PO DAILY 10/16/16 Promethazine HCl [Phenergan Tab] 25 mg PO Q6H PRN #15 tablet 01/14/17 Pregabalin [Lyrica] 25 mg PO DAILY 05/07/17 Promethazine HCl [Phenergan Tab] 25 mg PO Q6H PRN #15 tablet 05/07/17 Topiramate [Topamax] 50 mg PO BID #30 tablet 05/07/17 Disposition Discussed With: Patient, Family
[2017-05-08 03:29] VITALS: BP 136/86; TEMP 98.1
== END 2017-05-07 21:13 | disposition home or self-care (01) ==
LOC: ED 19:14
DX: G43.909 Migraine, unspecified, not intractable, without status migrainosus (principal)
CPT/HCPCS: 96372; 99282

== ENCOUNTER 2017-06-23 22:15 | Emergency (ER) ==
[2017-06-23 22:19] VITALS: BP 138/86; TEMP 98; BMI 34.8
[2017-06-23] MEDS ORDERED: PHENERGAN 25 MG/ML VIAL IM STA (22:19)
[2017-06-23] MEDS ORDERED: STADOL IM STA (22:19)
--- NOTE | 2017-06-23 22:30 | ED.PDOC ---
General ED Provider: Dr. RIKA WILLIAM-ER Chief Complaint: Headache Stated Complaint: george got a migraine--had procedure in [place] recently-- also had uri symptoms and had sensation of diminished hearing left ear Time Seen by Physician: 22:20 Mode of Arrival: Walk-In Information Source: Patient Exam Limitations: No limitations Primary Care Provider: JEB KIRK Nursing and Triage Documentation Reviewed and Agree: Yes Reviewed sepsis parameters & appropriate labs ordered?: Yes System Inflammatory Response Syndrome: Not Applicable Sepsis Protocol: For patient's 13 years and over: Temp is 96.8 and below OR 101 and greater Pulse >90 BPM Resp >20/minute Acutely Altered Mental Status Are patient's symptoms suggestive of a new infection, such as: -Pneumonia -Skin, Soft Tissue -Endocarditis -UTI -Bone, Joint Infection -Implantable Device -Acute Abdominal Infection -Wound Infection -Meningitis -Blood Stream Catheter Infection -Unknown Neurological Complaint Exam - Headache Complaint/Exam Onset: Gradual Duration: several hours Symptoms Are: Still present Timing: Constant Worst Headache Ever: No Initial Severity: Mild Current Severity: Moderate Location: Diffuse Character: Reports: Dull, Throbbing, Typical headache, Migraine Aggravating: Reports: Bright lights Alleviating: Reports: None Associated Signs and Symptoms: Reports: Nausea. Denies: Dizziness, Seizure, Vomiting, Sinus pressure, Fever, Neck pain, Neck stiffness, Decreased LOC, Visual changes Related History: Reports: Similar episode Related Surgical History: Reports: None Temporal Arteritis Risk Factors: Reports: None Normal Head CT Within Last 12 Months: No Fundoscopic Exam: Present: Normal Findings Papilledema Present: No Temporal Artery Tenderness: Present: None Sinus Tenderness: Present: None TMJ Tenderness: Present: None Glascow Coma Scale (see protocol): 15 Meningeal Signs Positive: No Pain on Passive Flexion-Positive Kernig's: No ROM Limited In: No Limitiations Focal Weakness: Present: None Focal Sensory Loss: Present: None Gait: Normal Nystagmus Present: No Gag Reflex Present: No [id number]: Normal Findings Romberg Test Positive: No Babinski Sign: Negative Right, Negative Left Heel to Toe Normal: Yes Differential Diagnoses: Migraine Review of Systems - Review Of Systems Constitutional: Reports: No symptoms Eyes: Reports: No symptoms Ears, Nose, Mouth, Throat: Reports: No symptoms Respiratory: Reports: No symptoms Cardiac: Reports: No symptoms GI: Reports: No symptoms : Reports: No symptoms Musculoskeletal: Reports: No symptoms Skin: Reports: No symptoms Neurological: Reports: Headache Endocrine: Reports: No symptoms Hematologic/Lymphatic: Reports: No symptoms All Other Systems: Reviewed and Negative Past Medical History - Past Medical History Previously Healthy: Yes Endocrine: Reports: Hypothyroid Cardiovascular: Reports: Hypertension Respiratory: Reports: COPD, Asthma Hematological: Reports: Anemia Gastrointestinal: Reports: GERD (nexium ), Pancreatitis (stents with pancreatitis-chronic pancreatitis) Genitourinary: Reports: None Neuro/Psych: Reports: Migraine, Seizure, Anxiety. Denies: Depression ( fluoxetine) Musculoskeletal: Reports: Arthritis, Back Pain, Other (soma phenergan) Cancer: Reports: None Last Menstrual Period: NONE Other Pertinent Past Medical History: Chronic back pain ,intrathecal pain pump and removal MEDIPORT - Surgical History General Surgical History: Reports: Hysterectomy (PARTIAL HYSTERECTOMY 2009), C- section, Cholecystectomy, Tonsillectomy, Adenoidectomy, Orthopedic (bilat. feet surg;RIGHT AND LEFT FOOT SURGERY), Other (stents with pancreatitis-chronic pancreatitis, MEDIPORT ) - Family History Family History: Reports: None - Social History Smoking Status: Never smoker Hx Substance Use: No Alcohol Screening: Occasionally Lives: With family - Immunizations Tetanus Shot up to Date: Yes Influenza Vaccine within 12 Months: No Pneumococcal Vaccine up to Date: No Physical Exam - Physical Exam Appearance: Well-appearing, No pain distress, Well-nourished Pain Distress: Moderate Eyes: PAULINO, EOMI, Conjunctiva clear ENT: Nose normal (noted air fluid level left tm) Neck: Supple Respiratory: Airway patent Cardiovascular: RRR GI/: Soft, Nontender, No masses, Bowel sounds normal, No Organomegaly Musculoskeletal: Normal strength, ROM intact, No edema, No calf tenderness Skin: Warm, Dry, Normal color Neurological: Sensation intact Psychiatric: Affect appropriate, Mood appropriate Physician Notification - Case Discussed Physician Notified: dr garcia([facility] for dr polo)--did not add to my suggestions of antbx Time of Notification: 23:43 Critical Care Note - Critical Care Note Total Time (mins): 0 Course - Course Orders, Labs, Meds: Orders Category Date Time Status Amoxicillin/Potassium Clav [Augmentin 875-125 mg Tab] MEDS 06/23/17 23:25 Discontinued 1 tab PO ONCE STA Butorphanol Tartrate [Stadol] MEDS 06/23/17 22:19 Discontinued 2 mg IM ONCE STA Promethazine HCl [Phenergan 25 mg/ml Vial] MEDS 06/23/17 22:19 Discontinued 25 mg IM ONCE STA Medications Discontinued Medications Generic Name Dose Route Start Last Admin Trade Name Freq PRN Reason Stop Dose Admin Amoxicillin/Clavulanate Potassium 1 tab 06/23/17 23:25 06/23/17 23:29 Augmentin 875-125 Mg Tab PO 06/23/17 23:26 1 tab ONCE STA Administration Butorphanol Tartrate 2 mg 06/23/17 22:19 06/23/17 22:29 Stadol IM 06/23/17 22:20 2 mg ONCE STA Administration Promethazine HCl 25 mg 06/23/17 22:19 06/23/17 22:29 Phenergan 25 Mg/Ml Vial IM 06/23/17 22:20 25 mg ONCE STA Administration Vital Signs: Temp Pulse Resp BP Pulse Ox 06/23/17 22:16 98 F 105 H 20 138/86 97 Departure - Departure Time of Disposition: 23:26 Disposition: HOME SELF-CARE Discharge Problem: Otitis media Qualifiers: Otitis media type: serous Chronicity: acute Laterality: left Recurrence: not specified as recurrent Qualified Code(s): H65.02 - Acute serous otitis media, left ear Instructions: Ear Infection (ED) Condition: Good Pt referred to PMD for follow-up: Yes IPMP verified?: No Additional Instructions: augmentin 875mg bid x 7days--keep appt tomorrow for follow and f/u with pcp Allergies/Adverse Reactions: Allergies divalproex sodium [From Depakote] Adverse Reaction (Verified 05/07/17 19:16) ketorolac [From Toradol] Adverse Reaction (Verified 05/07/17 19:16) metoclopramide HCl [From Reglan] Adverse Reaction (Verified 05/07/17 19:16) Home Medications: Ambulatory Orders Carisoprodol [Soma] 350 mg PO PRN PRN 02/02/15 Amitriptyline HCl [Elavil] 100 mg PO DAILY 06/27/16 Doxepin HCl [Sinequan] 25 mg PO BEDTIME 08/01/16 Esomeprazole Magnesium [Nexium] 20 mg PO DAILY 10/16/16 Promethazine HCl [Phenergan Tab] 25 mg PO Q6H PRN #15 tablet 01/14/17 Pregabalin [Lyrica] 25 mg PO DAILY 05/07/17 Promethazine HCl [Phenergan Tab] 25 mg PO Q6H PRN #15 tablet 05/07/17 Topiramate [Topamax] 50 mg PO BID #30 tablet 05/07/17 Disposition Discussed With: Patient, Family
[2017-06-23] MEDS ORDERED: AUGMENTIN 875-125 MG TAB PO STA (23:25)
== END 2017-06-23 23:45 | disposition home or self-care (01) ==
LOC: ED 22:15
DX: H65.02 Acute serous otitis media, left ear (principal); R51 Headache
CPT/HCPCS: 96372; 99282

== ENCOUNTER 2017-08-08 22:25 | Emergency (ER) ==
[2017-08-08 22:34] VITALS: BP 132/90; TEMP 97; BMI 35.6
--- NOTE | 2017-08-08 22:41 | ED.PDOC ---
General ED Provider: Dr. RIKA WILLAIM-ER Chief Complaint: Headache Stated Complaint: george got a migraine head--im nauseated Time Seen by Physician: 22:39 Mode of Arrival: Walk-In Information Source: Patient Exam Limitations: No limitations Primary Care Provider: [facility] Nursing and Triage Documentation Reviewed and Agree: Yes Reviewed sepsis parameters & appropriate labs ordered?: Yes System Inflammatory Response Syndrome: Not Applicable Sepsis Protocol: For patient's 13 years and over: Temp is 96.8 and below OR 101 and greater Pulse >90 BPM Resp >20/minute Acutely Altered Mental Status Are patient's symptoms suggestive of a new infection, such as: -Pneumonia -Skin, Soft Tissue -Endocarditis -UTI -Bone, Joint Infection -Implantable Device -Acute Abdominal Infection -Wound Infection -Meningitis -Blood Stream Catheter Infection -Unknown Neurological Complaint Exam - Headache Complaint/Exam Onset: Gradual Duration: several hours Symptoms Are: Still present Timing: Constant Episodes Lasting: Hours Worst Headache Ever: No Initial Severity: Mild Current Severity: Moderate Location: Diffuse Character: Reports: Dull, Throbbing, Pressure, Typical headache, Migraine Aggravating: Reports: Bright lights Alleviating: Reports: None Associated Signs and Symptoms: Reports: Nausea, Vomiting. Denies: Dizziness, Seizure, Sinus pressure, Fever, Neck pain, Neck stiffness, Decreased LOC, Visual changes Related History: Reports: Similar episode Related Surgical History: Reports: None Temporal Arteritis Risk Factors: Reports: Female, Normal Head CT Within Last 12 Months: Yes Fundoscopic Exam: Present: Normal Findings Papilledema Present: No Temporal Artery Tenderness: Present: None Sinus Tenderness: Present: None TMJ Tenderness: Present: None Glascow Coma Scale (see protocol): 15 Meningeal Signs Positive: No Pain on Passive Flexion-Positive Kernig's: No ROM Limited In: No Limitiations Focal Weakness: Present: None Focal Sensory Loss: Present: None Gait: Normal Nystagmus Present: No Gag Reflex Present: Yes [id number]: Normal Findings Romberg Test Positive: No Babinski Sign: Negative Right, Negative Left Heel to Toe Normal: Yes Differential Diagnoses: Migraine Review of Systems - Review Of Systems Constitutional: Reports: No symptoms Eyes: Reports: No symptoms Ears, Nose, Mouth, Throat: Reports: No symptoms Respiratory: Reports: No symptoms Cardiac: Reports: No symptoms GI: Reports: Nausea, Vomiting : Reports: No symptoms Musculoskeletal: Reports: No symptoms Skin: Reports: No symptoms Neurological: Reports: Headache Endocrine: Reports: No symptoms Hematologic/Lymphatic: Reports: No symptoms All Other Systems: Reviewed and Negative Past Medical History - Past Medical History Previously Healthy: Yes Endocrine: Reports: Hypothyroid Cardiovascular: Reports: Hypertension Respiratory: Reports: COPD, Asthma Hematological: Reports: Anemia Gastrointestinal: Reports: GERD (nexium ), Pancreatitis (stents with pancreatitis-chronic pancreatitis) Genitourinary: Reports: None Neuro/Psych: Reports: Migraine, Seizure, Anxiety. Denies: Depression ( fluoxetine) Musculoskeletal: Reports: Arthritis, Back Pain, Other (soma phenergan) Cancer: Reports: None Last Menstrual Period: 2009 hyst. Other Pertinent Past Medical History: Chronic back pain ,intrathecal pain pump and removal MEDIPORT - Surgical History General Surgical History: Reports: Hysterectomy (PARTIAL HYSTERECTOMY 2009), C- section, Cholecystectomy, Tonsillectomy, Adenoidectomy, Orthopedic (bilat. feet surg;RIGHT AND LEFT FOOT SURGERY), Other (stents with pancreatitis-chronic pancreatitis, MEDIPORT ) - Family History Family History: Reports: None - Social History Smoking Status: Never smoker Hx Substance Use: No Alcohol Screening: Occasionally - Immunizations Tetanus Shot up to Date: Yes Influenza Vaccine within 12 Months: No Pneumococcal Vaccine up to Date: No Physical Exam - Physical Exam Appearance: Well-appearing, No pain distress, Well-nourished Pain Distress: Moderate Eyes: PAULINO, EOMI, Conjunctiva clear ENT: Ears normal, Nose normal, Oropharynx normal Neck: Supple Respiratory: Airway patent, Breath sounds clear, Breath sounds equal, Respirations nonlabored Cardiovascular: RRR, Pulses normal, No rub, No murmur GI/: Soft, Nontender, No masses, Bowel sounds normal, No Organomegaly Musculoskeletal: Normal strength, ROM intact, No edema, No calf tenderness Skin: Warm Neurological: Sensation intact, Motor intact, Reflexes intact, Cranial nerves intact, Alert, Oriented Psychiatric: Affect appropriate, Mood appropriate Re-Evaluation - Re-Evaluation Time of Re-Evaluation: 23:05 Status: Improved Vital Signs Stable: Yes Pain Level: 1 Appearance: NAD Lungs: Clear Skin: Warm and Dry Neuro: Alert and Oriented X3 CV: RRR Critical Care Note - Critical Care Note Total Time (mins): 0 Course - Course Orders, Labs, Meds: Orders Category Date Time Status Butorphanol Tartrate [Stadol] MEDS 08/08/17 22:38 Stat 2 mg IM ONCE STA Diphenhydramine Inj [Benadryl] MEDS 08/08/17 22:38 Stat 25 mg IM ONCE STA Promethazine HCl [Phenergan 25 mg/ml Vial] MEDS 08/08/17 22:38 Stat 25 mg IM ONCE STA Medications Generic Name Dose Route Start Last Admin Trade Name Freq PRN Reason Stop Dose Admin Butorphanol Tartrate 2 mg 08/08/17 22:38 Stadol IM 08/08/17 22:39 ONCE STA Diphenhydramine HCl 25 mg 08/08/17 22:38 Benadryl IM 08/08/17 22:39 ONCE STA Promethazine HCl 25 mg 08/08/17 22:38 Phenergan 25 Mg/Ml Vial IM 08/08/17 22:39 ONCE STA Vital Signs: Temp Pulse Resp BP Pulse Ox 08/08/17 22:27 97 F L 98 H 20 132/90 97 Departure - Departure Time of Disposition: 22:42 Disposition: HOME SELF-CARE Discharge Problem: Migraine Qualifiers: Migraine type: unspecified Status migrainosus presence: without status migrainosus Intractability: not intractable Qualified Code(s): G43.909 - Migraine, unspecified, not intractable, without status migrainosus Instructions: Migraine Headache (ED) Condition: Good Pt referred to PMD for follow-up: Yes IPMP verified?: No Additional Instructions: f/u with pcp Allergies/Adverse Reactions: Allergies divalproex sodium [From Depakote] Adverse Reaction (Verified 08/08/17 22:32) ketorolac [From Toradol] Adverse Reaction (Verified 08/08/17 22:32) metoclopramide HCl [From Reglan] Adverse Reaction (Verified 08/08/17 22:32) Home Medications: Ambulatory Orders Carisoprodol [Soma] 350 mg PO PRN PRN 02/02/15 Amitriptyline HCl [Elavil] 100 mg PO DAILY 06/27/16 Doxepin HCl [Sinequan] 25 mg PO BEDTIME 08/01/16 Esomeprazole Magnesium [Nexium] 20 mg PO DAILY 10/16/16 Promethazine HCl [Phenergan Tab] 25 mg PO Q6H PRN #15 tablet 01/14/17 Pregabalin [Lyrica] 75 mg PO DAILY 05/07/17 Topiramate [Topamax] 100 mg PO BID 08/08/17 Disposition Discussed With: Patient, Family
[2017-08-08] MEDS: STADOL IM STA (22:54)
[2017-08-08] MEDS: BENADRYL IM STA (22:58)
[2017-08-08] MEDS: PHENERGAN 25 MG/ML VIAL IM STA (22:59)
== END 2017-08-08 23:25 | disposition home or self-care (01) ==
LOC: ED 22:25
DX: G43.909 Migraine, unspecified, not intractable, without status migrainosus (principal)
CPT/HCPCS: 96372; 99282; 99283

== ENCOUNTER 2017-08-23 18:01 | Emergency (ER) ==
[2017-08-23 18:01] VITALS: BMI 34.8
--- NOTE | 2017-08-23 18:07 | ED.PDOC ---
General <JACE PALAFOX - Last Filed: 08/23/17 20:35> Stated Complaint: TYPICAL MIGRAINE, STARTED YESTERDAY NIGHT Time Seen by Physician: 18:25 Mode of Arrival: Walk-In Information Source: Patient Exam Limitations: No limitations Referred to ED by: PCP Nursing and Triage Documentation Reviewed and Agree: Yes Reviewed sepsis parameters & appropriate labs ordered?: Yes System Inflammatory Response Syndrome: Not Applicable <JAMESRIKA - Last Filed: 09/18/17 13:13> ED Provider: Dr. RIKA RAMIREZ MD Chief Complaint: Headache [facility] Sepsis Protocol: For patient's 13 years and over: Temp is 96.8 and below OR 101 and greater Pulse >90 BPM Resp >20/minute Acutely Altered Mental Status Are patient's symptoms suggestive of a new infection, such as: -Pneumonia -Skin, Soft Tissue -Endocarditis -UTI -Bone, Joint Infection -Implantable Device -Acute Abdominal Infection -Wound Infection -Meningitis -Blood Stream Catheter Infection -Unknown Review of Systems - Review Of Systems Constitutional: Reports: No symptoms Eyes: Reports: Photophobia (MILD) Ears, Nose, Mouth, Throat: Reports: No symptoms Respiratory: Reports: No symptoms Cardiac: Reports: No symptoms GI: Reports: No symptoms : Reports: No symptoms Musculoskeletal: Reports: No symptoms Skin: Reports: No symptoms Neurological: Reports: No symptoms Endocrine: Reports: No symptoms Hematologic/Lymphatic: Reports: No symptoms All Other Systems: Reviewed and Negative <JAMESRIKA - Last Filed: 09/18/17 13:13> Past Medical History - Past Medical History Previously Healthy: Yes Endocrine: Reports: Hypothyroid Cardiovascular: Reports: Hypertension Respiratory: Reports: COPD, Asthma Hematological: Reports: Anemia Gastrointestinal: Reports: GERD (nexium ), Pancreatitis (stents with pancreatitis-chronic pancreatitis) Genitourinary: Reports: None Neuro/Psych: Reports: Migraine, Seizure, Anxiety. Denies: Depression ( fluoxetine) Musculoskeletal: Reports: Arthritis, Back Pain, Other (soma phenergan) Cancer: Reports: None Other Pertinent Past Medical History: Chronic back pain ,intrathecal pain pump and removal MEDIPORT - Surgical History General Surgical History: Reports: Hysterectomy (PARTIAL HYSTERECTOMY 2009), C- section, Cholecystectomy, Tonsillectomy, Adenoidectomy, Orthopedic (bilat. feet surg;RIGHT AND LEFT FOOT SURGERY), Other (stents with pancreatitis-chronic pancreatitis, MEDIPORT ) - Family History Family History: Reports: None - Social History Smoking Status: Never smoker Hx Substance Use: No Alcohol Screening: Occasionally - Immunizations Influenza Vaccine within 12 Months: No Pneumococcal Vaccine up to Date: No <RIKA RAMIREZ - Last Filed: 09/18/17 13:13> Physical Exam - Physical Exam Appearance: Well-appearing, No pain distress, Well-nourished Ill-appearing: Moderate Pain Distress: Moderate Eyes: PAULINO, EOMI, Conjunctiva clear ENT: Ears normal, Nose normal, Oropharynx normal Respiratory: Airway patent, Breath sounds clear, Breath sounds equal, Respirations nonlabored Cardiovascular: RRR, Pulses normal, No rub, No murmur GI/: Soft, Nontender, No masses, Bowel sounds normal, No Organomegaly Musculoskeletal: Normal strength, ROM intact, No edema, No calf tenderness Skin: Warm, Dry, Normal color Neurological: Sensation intact, Motor intact, Reflexes intact, Cranial nerves intact, Alert, Oriented Psychiatric: Affect appropriate, Mood appropriate <RIKA RAMIREZ - Last Filed: 09/18/17 13:13> Critical Care Note - Critical Care Note Total Time (mins): 0 <RIKA RAMIREZ - Last Filed: 09/18/17 13:13> - Course Orders, Labs, Meds: Orders Category Date Time Status Butorphanol Tartrate [Stadol] MEDS 08/23/17 20:13 Discontinued 1 mg IVP ONCE STA Methylprednisolone Sod Succ/Pf [Solu-Medrol 125 mg] MEDS 08/23/17 18:30 Discontinued 125 mg IM ONCE STA Promethazine HCl [Phenergan 25 mg/ml Vial] MEDS 08/23/17 18:36 Discontinued 25 mg .ROUTE .STK-MED ONE Promethazine HCl [Phenergan 25 mg/ml Vial] 25 mg MEDS 08/23/17 18:30 Discontinued 0.9 % Sodium Chloride [Sodium Chloride] 50 ml IV ONCE Medications Discontinued Medications Generic Name Dose Route Start Last Admin Trade Name Freq PRN Reason Stop Dose Admin Butorphanol Tartrate 1 mg 08/23/17 20:13 08/23/17 20:23 Stadol IVP 08/23/17 20:14 1 mg ONCE STA Administration Promethazine HCl 25 mg/ Sodium 51 mls @ 75 mls/hr 08/23/17 18:30 08/23/17 19: 14 Chloride IV 08/23/17 19:10 75 mls/hr ONCE STA Administration Methylprednisolone Sodium Succinate 125 mg 08/23/17 18:30 08/23/17 19:15 Solu-Medrol 125 Mg IM 08/23/17 18:31 Not Given ONCE STA Vital Signs: Temp Pulse Resp BP Pulse Ox 08/23/17 18:02 98.0 F 111 H 20 141/97 H 94 L Departure - Departure Time of Disposition: 20:35 Pt referred to PMD for follow-up: Yes IPMP verified?: No <JACE PALAFOX - Last Filed: 08/23/17 20:35> <RIKA RAMIREZ - Last Filed: 09/18/17 13:13> - Departure Disposition: HOME SELF-CARE Discharge Problem: Headache Migraine Qualifiers: Migraine type: with aura Status migrainosus presence: without status migrainosus Intractability: not intractable Qualified Code(s): G43.109 - Migraine with aura, not intractable, without status migrainosus Instructions: Migraine Headache (ED) Condition: Stable Allergies/Adverse Reactions: Allergies divalproex sodium [From Depakote] Adverse Reaction (Verified 09/16/17 15:26) ketorolac [From Toradol] Adverse Reaction (Verified 09/16/17 15:26) metoclopramide HCl [From Reglan] Adverse Reaction (Verified 09/16/17 15:26) Home Medications: Ambulatory Orders Carisoprodol [Soma] 350 mg PO PRN PRN 02/02/15 Amitriptyline HCl [Elavil] 100 mg PO DAILY 06/27/16 Doxepin HCl [Sinequan] 25 mg PO BEDTIME 08/01/16 Esomeprazole Magnesium [Nexium] 20 mg PO DAILY 10/16/16 Promethazine HCl [Phenergan Tab] 25 mg PO Q6H PRN #15 tablet 01/14/17 Pregabalin [Lyrica] 75 mg PO DAILY 05/07/17 Topiramate [Topamax] 200 mg PO BID 08/08/17 Butorphanol Tartrate 10 mg NS DIRECTED PRN 08/23/17
[2017-08-23 18:12] VITALS: BP 141/97; TEMP 98
[2017-08-23] MEDS ORDERED: SOLU-MEDROL 125 MG IM STA (18:30)
[2017-08-23] MEDS ORDERED: PHENERGAN 25 MG/ML VIAL 25 MG in SODIUM CHLORIDE 50 ML IV STA (18:30)
[2017-08-23] MEDS ORDERED: PHENERGAN 25 MG/ML VIAL ONE (18:36)
[2017-08-23] MEDS ORDERED: STADOL IVP STA (20:13)
== END 2017-08-23 21:18 | disposition home or self-care (01) ==
LOC: ED 18:01
DX: G43.109 Migraine with aura, not intractable, without status migrainosus (principal)
CPT/HCPCS: 96365; 96375; 99283

== ENCOUNTER 2017-09-04 17:15 | Emergency (ER) ==
[2017-09-04 17:19] VITALS: BP 142/96; TEMP 97.5; BMI 35.2
[2017-09-04] MEDS ORDERED: BENTYL IM STA (17:30)
[2017-09-04] MEDS ORDERED: DILAUDID 1 MG/ML SYRINGE IVP STA (17:30)
[2017-09-04] MEDS ORDERED: SODIUM CHLORIDE 1,000 ML IV STA (17:30)
--- NOTE | 2017-09-04 17:52 | ED.PDOC ---
General ED Provider: Dr. JOE LIU Chief Complaint: Abdominal Pain Stated Complaint: ABDOMINAL PAIN CHRONIC Time Seen by Physician: 17:19 (SEEN WITH DORIS AT ALL TIMES ) Mode of Arrival: Walk-In Information Source: Patient Exam Limitations: No limitations Primary Care Provider: [facility] Nursing and Triage Documentation Reviewed and Agree: Yes Reviewed sepsis parameters & appropriate labs ordered?: Yes System Inflammatory Response Syndrome: Not Applicable Sepsis Protocol: For patient's 13 years and over: Temp is 96.8 and below OR 101 and greater Pulse >90 BPM Resp >20/minute Acutely Altered Mental Status Are patient's symptoms suggestive of a new infection, such as: -Pneumonia -Skin, Soft Tissue -Endocarditis -UTI -Bone, Joint Infection -Implantable Device -Acute Abdominal Infection -Wound Infection -Meningitis -Blood Stream Catheter Infection -Unknown System Inflammatory Response Syndrome: Not Applicable GI Complaint Exam - Abdominal Pain Complaint/Exam Onset: Gradual Duration: CHRONIC WORSE TODAY THIS IS THE SAME PAIN PT SUFFERS AT ALL KANE Symptoms Are: Still present Timing: Constant Initial Severity: Moderate Current Severity: Moderate Location of Pain: Diffuse Character: Reports: Cramping Aggravating: Reports: None Alleviating: Reports: None Associated Signs and Symptoms: Denies: Diaphoresis, Fever, Cough, Chest pain, Dizziness, Back pain, Constipation, Blood in stool, Dysuria, Urinary frequency, Decreased urine output, Decreased appetite, Vaginal bleeding, Vaginal discharge , Nausea, Vomiting, Diarrhea, Sore throat, Decreased activity Related History: Reports: Similar episode AAA Risk Factors: Reports: None Cardiac Risk Factors: Reports: Hypertension Ectopic Risk Factors: Reports: None Ovarian Torsion Risk Factors: Reports: None Surgical Obstruction Risk Factors: Reports: None Related Surgical History: Reports: None Patient Rh Status: Unknown Abdominal Findings: Present: None Differential Diagnoses: Appendicitis, Bowel Obstruction, Constipation, Diverticulitis, Gastroenteritis, Pancreatitis Review of Systems - Review Of Systems Constitutional: Reports: No symptoms Eyes: Reports: No symptoms Ears, Nose, Mouth, Throat: Reports: No symptoms Respiratory: Reports: No symptoms Cardiac: Reports: No symptoms GI: Reports: Abdominal pain : Reports: No symptoms Musculoskeletal: Reports: No symptoms Skin: Reports: No symptoms Neurological: Reports: No symptoms Endocrine: Reports: No symptoms Hematologic/Lymphatic: Reports: No symptoms All Other Systems: Reviewed and Negative Past Medical History - Past Medical History Previously Healthy: Yes Endocrine: Reports: Hypothyroid Cardiovascular: Reports: Hypertension Respiratory: Reports: COPD, Asthma Hematological: Reports: Anemia Gastrointestinal: Reports: GERD (nexium ), Pancreatitis (stents with pancreatitis-chronic pancreatitis) Genitourinary: Reports: None Neuro/Psych: Reports: Migraine, Seizure, Anxiety. Denies: Depression ( fluoxetine) Musculoskeletal: Reports: Arthritis, Back Pain, Other (soma phenergan) Cancer: Reports: None Last Menstrual Period: none Other Pertinent Past Medical History: Chronic back pain ,intrathecal pain pump and removal MEDIPORT - Surgical History General Surgical History: Reports: Hysterectomy (PARTIAL HYSTERECTOMY 2009), C- section, Cholecystectomy, Tonsillectomy, Adenoidectomy, Orthopedic (bilat. feet surg;RIGHT AND LEFT FOOT SURGERY), Other (stents with pancreatitis-chronic pancreatitis, MEDIPORT ) - Family History Family History: Reports: None - Social History Smoking Status: Never smoker Hx Substance Use: No Alcohol Screening: Occasionally - Immunizations Influenza Vaccine within 12 Months: No Pneumococcal Vaccine up to Date: No Physical Exam - Physical Exam Appearance: Well-appearing, No pain distress, Well-nourished Eyes: PAULINO, EOMI, Conjunctiva clear ENT: Ears normal, Nose normal, Oropharynx normal Respiratory: Airway patent, Breath sounds clear, Breath sounds equal, Respirations nonlabored Cardiovascular: RRR, Pulses normal, No rub, No murmur GI/: Soft, Nontender, No masses, Bowel sounds normal, No Organomegaly Musculoskeletal: Normal strength, ROM intact, No edema, No calf tenderness Skin: Warm, Dry, Normal color Neurological: Sensation intact, Motor intact, Reflexes intact, Cranial nerves intact, Alert, Oriented Psychiatric: Affect appropriate, Mood appropriate Critical Care Note - Critical Care Note Total Time (mins): 0 Course - Course Orders, Labs, Meds: Orders Category Date Time Status ED IV/MEDIPORT/POWERPORT .ONCE EMERGENCY 09/04/17 17:29 Active CBC W/ AUTO DIFF Stat LAB 09/04/17 17:29 Ordered COMPREHENSIVE METABOLIC PANEL Stat LAB 09/04/17 17:29 Ordered 0.9 % Sodium Chloride [Saline Flush] MEDS 09/04/17 17:29 Ordered 1 syr IVF PRN PRN Dicyclomine Inj [Bentyl] MEDS 09/04/17 17:30 Discontinued 20 mg IM ONCE STA Hydromorphone HCl [Dilaudid 1 mg/ml Syringe] MEDS 09/04/17 17:30 Discontinued 0.5 mg IVP ONCE STA Sodium Chloride 0.9% [Sodium Chloride] 1,000 ml MEDS 09/04/17 17:[address] ABDOMEN/PELVIS WO CONTRAST Stat RADS 09/04/17 17:29 Ordered Medications Generic Name Dose Route Start Last Admin Trade Name Freq PRN Reason Stop Dose Admin Sodium Chloride 1,000 mls @ 1,000 mls/hr 09/04/17 17:30 Sodium Chloride IV 09/04/17 18:29 BOLUS STA Sodium Chloride 1 syr 09/04/17 17:29 Saline Flush IVF PRN PRN To flush IV Discontinued Medications Generic Name Dose Route Start Last Admin Trade Name Freq PRN Reason Stop Dose Admin Dicyclomine HCl 20 mg 09/04/17 17:30 Bentyl IM 09/04/17 17:31 ONCE STA Hydromorphone HCl 0.5 mg 09/04/17 17:30 Dilaudid 1 Mg/Ml Syringe IVP 09/04/17 17:31 ONCE STA Vital Signs: Temp Pulse Resp BP Pulse Ox 09/04/17 17:17 97.5 F L 108 H 20 142/96 H 92 L Departure - Departure Time of Disposition: 19:00 Disposition: HOME SELF-CARE Discharge Problem: Abdominal pain Instructions: Abdominal Pain (ED) Condition: Good Pt referred to PMD for follow-up: Yes IPMP verified?: No Additional Instructions: Please call your Family Physician as soon as possible to schedule a follow-up appointment. Prescriptions: Hydrocodone/Acetaminophen [Meredith 10-325 Tablet] 1 each PO Q8HR #14 tablet Allergies/Adverse Reactions: Allergies divalproex sodium [From Depakote] Adverse Reaction (Verified 09/04/17 17:20) ketorolac [From Toradol] Adverse Reaction (Verified 09/04/17 17:20) metoclopramide HCl [From Reglan] Adverse Reaction (Verified 09/04/17 17:20) Home Medications: Ambulatory Orders Carisoprodol [Soma] 350 mg PO PRN PRN 02/02/15 Amitriptyline HCl [Elavil] 100 mg PO DAILY 06/27/16 Doxepin HCl [Sinequan] 25 mg PO BEDTIME 08/01/16 Esomeprazole Magnesium [Nexium] 20 mg PO DAILY 10/16/16 Promethazine HCl [Phenergan Tab] 25 mg PO Q6H PRN #15 tablet 01/14/17 Pregabalin [Lyrica] 75 mg PO DAILY 05/07/17 Topiramate [Topamax] 200 mg PO BID 08/08/17 Butorphanol Tartrate 10 mg NS DIRECTED PRN 08/23/17 Hydrocodone/Acetaminophen [Meredith 10-325 Tablet] 1 each PO Q8HR #14 tablet
--- NOTE | 2017-09-04 18:13 | CT ---
Exam: CT abdomen pelvis without intravenous contrast. Comparison: 12/19/2016. Reason for exam: History of gallbladder and foot surgery with partial hysterectomy. Patient with abdominal pain. FINDINGS: No pleural effusion, or focal consolidation in the partially imaged lung bases. Image interpretation is limited by the lack of intravenous contrast administration. The liver is lower in attenuation in the spleen. The gallbladder has been removed. There is a small amount of pneumobilia. The adrenal glands and pancreas appear grossly unremarkable without intravenous contrast. The gallbladder has been removed. Calcific densities are seen in the left renal collecting system measuring up to 2.2 mm. No hydronephrosis or hydroureter is seen in either kidney. The bladder appears grossly unremarkable. No focal small bowel dilatation or transition point. No intra-abdominal free air or pelvic free fluid. The appendix is not definitively seen. No inflammatory changes are seen in the expected location of the appendix. Degenerative disease is seen in the lumbosacral spine. No suspicious appearing osteoblastic or osteo lytic lesions. Impression: 1. No acute inflammatory changes are seen within the abdomen or pelvis. 2. Left-sided nephrolithiasis without hydronephrosis.
[2017-09-04] MEDS ORDERED: ZOFRAN 4 MG/2 ML IVP STA (18:18)
== END 2017-09-04 19:25 | disposition home or self-care (01) ==
LOC: ED 17:15
DX: R10.84 Generalized abdominal pain (principal); I10 Essential (primary) hypertension
CPT/HCPCS: 36415; 80053; 85025; 96361; 96372; 96374; 96375; 99283

== ENCOUNTER 2017-09-16 15:21 | Emergency (ER) ==
[2017-09-16 15:21] VITALS: BMI 35.2
[2017-09-16 15:26] VITALS: BP 121/83; TEMP 97
--- NOTE | 2017-09-16 17:00 | DI ---
EXAM: Left knee four views HISTORY: Pain COMPARISON: None FINDINGS: The bones are normal. The medial, lateral, and patellofemoral compartments are normal in h eight. No joint effusion. IMPERSSION: Normal examination.
--- NOTE | 2017-09-16 17:27 | ED.PDOC ---
General ED Provider: Dr. JOE LIU Chief Complaint: Knee Pain/Injury Stated Complaint: left knee pain Time Seen by Physician: 15:23 Mode of Arrival: Wheelchair Information Source: Patient Exam Limitations: No limitations [facility] Nursing and Triage Documentation Reviewed and Agree: Yes Reviewed sepsis parameters & appropriate labs ordered?: Yes (fell earlier ) System Inflammatory Response Syndrome: Not Applicable Sepsis Protocol: For patient's 13 years and over: Temp is 96.8 and below OR 101 and greater Pulse >90 BPM Resp >20/minute Acutely Altered Mental Status Are patient's symptoms suggestive of a new infection, such as: -Pneumonia -Skin, Soft Tissue -Endocarditis -UTI -Bone, Joint Infection -Implantable Device -Acute Abdominal Infection -Wound Infection -Meningitis -Blood Stream Catheter Infection -Unknown System Inflammatory Response Syndrome: Not Applicable Review of Systems - Review Of Systems Constitutional: Reports: No symptoms Eyes: Reports: No symptoms Ears, Nose, Mouth, Throat: Reports: No symptoms Respiratory: Reports: No symptoms Cardiac: Reports: No symptoms GI: Reports: No symptoms : Reports: No symptoms Musculoskeletal: Reports: Joint pain (left knee) Skin: Reports: No symptoms Neurological: Reports: No symptoms Endocrine: Reports: No symptoms Hematologic/Lymphatic: Reports: No symptoms All Other Systems: Reviewed and Negative Past Medical History - Past Medical History Previously Healthy: Yes Endocrine: Reports: Hypothyroid Cardiovascular: Reports: Hypertension Respiratory: Reports: COPD, Asthma Hematological: Reports: Anemia Gastrointestinal: Reports: GERD (nexium ), Pancreatitis (stents with pancreatitis-chronic pancreatitis) Genitourinary: Reports: None Neuro/Psych: Reports: Migraine, Seizure, Anxiety. Denies: Depression ( fluoxetine) Musculoskeletal: Reports: Arthritis, Back Pain, Other (soma phenergan) Cancer: Reports: None Last Menstrual Period: n/a Other Pertinent Past Medical History: Chronic back pain ,intrathecal pain pump and removal MEDIPORT - Surgical History General Surgical History: Reports: Hysterectomy (PARTIAL HYSTERECTOMY 2009), C- section, Cholecystectomy, Tonsillectomy, Adenoidectomy, Orthopedic (bilat. feet surg;RIGHT AND LEFT FOOT SURGERY), Other (stents with pancreatitis-chronic pancreatitis, MEDIPORT ) - Family History Family History: Reports: None - Social History Smoking Status: Never smoker Hx Substance Use: No Alcohol Screening: Occasionally - Immunizations Influenza Vaccine within 12 Months: No Pneumococcal Vaccine up to Date: No Physical Exam - Physical Exam Appearance: Well-appearing, No pain distress, Well-nourished Eyes: PAULINO, EOMI, Conjunctiva clear ENT: Ears normal, Nose normal, Oropharynx normal Respiratory: Airway patent, Breath sounds clear, Breath sounds equal, Respirations nonlabored Cardiovascular: RRR, Pulses normal, No rub, No murmur GI/: Soft, Nontender, No masses, Bowel sounds normal, No Organomegaly Musculoskeletal: Normal strength, ROM intact, No edema, No calf tenderness Skin: Warm, Dry, Normal color Neurological: Sensation intact, Motor intact, Reflexes intact, Cranial nerves intact, Alert, Oriented Psychiatric: Affect appropriate, Mood appropriate Interpretation - Radiology Interpretation Radiology Interpretation By: Radiologist Radiology Results: No acute changes Critical Care Note - Critical Care Note Total Time (mins): 0 Course - Course Orders, Labs, Meds: Orders Category Date Time Status KNEE, LEFT 4 VIEWS Stat RADS 09/16/17 16:36 Completed Vital Signs: Temp Pulse Resp BP Pulse Ox 09/16/17 15:21 97.0 F L 102 H 16 121/83 95 Departure - Departure Time of Disposition: 17:27 Disposition: HOME SELF-CARE Discharge Problem: Knee pain, Injury of knee Instructions: Knee Pain (ED), Arthralgia (ED) Condition: Good Pt referred to PMD for follow-up: Yes IPMP verified?: No Allergies/Adverse Reactions: Allergies divalproex sodium [From Depakote] Adverse Reaction (Verified 09/16/17 15:26) ketorolac [From Toradol] Adverse Reaction (Verified 09/16/17 15:26) metoclopramide HCl [From Reglan] Adverse Reaction (Verified 09/16/17 15:26) Home Medications: Ambulatory Orders Carisoprodol [Soma] 350 mg PO PRN PRN 02/02/15 Amitriptyline HCl [Elavil] 100 mg PO DAILY 06/27/16 Doxepin HCl [Sinequan] 25 mg PO BEDTIME 08/01/16 Esomeprazole Magnesium [Nexium] 20 mg PO DAILY 10/16/16 Promethazine HCl [Phenergan Tab] 25 mg PO Q6H PRN #15 tablet 01/14/17 Pregabalin [Lyrica] 75 mg PO DAILY 05/07/17 Topiramate [Topamax] 200 mg PO BID 08/08/17 Butorphanol Tartrate 10 mg NS DIRECTED PRN 08/23/17
== END 2017-09-16 17:33 | disposition home or self-care (01) ==
LOC: ED 15:21
DX: M25.562 Pain in left knee (principal)
CPT/HCPCS: 99283

== ENCOUNTER 2017-10-11 14:26 | Emergency (ER) ==
[2017-10-11 14:30] VITALS: BP 133/93; TEMP 97.4; BMI 34.8
[2017-10-11] MEDS ORDERED: MORPHINE 10 MG/ML SYRINGE IM STA (14:37)
[2017-10-11] MEDS ORDERED: ZOFRAN 4 MG/2 ML IM STA (14:38)
--- NOTE | 2017-10-11 14:40 | ED.PDOC ---
General ED Provider: Dr. JOE LIU Chief Complaint: Headache Stated Complaint: chronic headache Time Seen by Physician: 14:30 (seen with lesley at all times also present ) Mode of Arrival: Walk-In Information Source: Patient Exam Limitations: No limitations Primary Care Provider: DEANNE SMITH Nursing and Triage Documentation Reviewed and Agree: Yes Reviewed sepsis parameters & appropriate labs ordered?: Yes System Inflammatory Response Syndrome: Not Applicable Sepsis Protocol: For patient's 13 years and over: Temp is 96.8 and below OR 101 and greater Pulse >90 BPM Resp >20/minute Acutely Altered Mental Status Are patient's symptoms suggestive of a new infection, such as: -Pneumonia -Skin, Soft Tissue -Endocarditis -UTI -Bone, Joint Infection -Implantable Device -Acute Abdominal Infection -Wound Infection -Meningitis -Blood Stream Catheter Infection -Unknown System Inflammatory Response Syndrome: Not Applicable Neurological Complaint Exam - Headache Complaint/Exam Onset: Gradual Duration: 1 day Symptoms Are: Still present Timing: Intermittent Episodes Lasting: Hours Worst Headache Ever: No Initial Severity: Moderate Current Severity: Moderate Location: Frontal, Temporal Character: Reports: Throbbing Aggravating: Reports: Exertion Alleviating: Reports: Rest Associated Signs and Symptoms: Reports: Nausea. Denies: Dizziness, Seizure, Vomiting, Sinus pressure, Fever, Neck pain, Neck stiffness, Decreased LOC, Visual changes Related History: Reports: Similar episode Related Surgical History: Reports: None SAH Risk Factors: Reports: Hypertension Meningitis Risk Factors: Reports: None SDH Risk Factors: Reports: None Temporal Arteritis Risk Factors: Reports: Female, Normal Head CT Within Last 12 Months: Yes Fundoscopic Exam: Present: Normal Findings Papilledema Present: No Temporal Artery Tenderness: Present: None Sinus Tenderness: Present: None TMJ Tenderness: Present: None Glascow Coma Scale (see protocol): 15 Meningeal Signs Positive: No Pain on Passive Flexion-Positive Kernig's: No ROM Limited In: No Limitiations Focal Weakness: Present: None Focal Sensory Loss: Present: None Gait: Normal Nystagmus Present: No Gag Reflex Present: Yes Differential Diagnoses: Migraine Review of Systems - Review Of Systems Constitutional: Reports: No symptoms Eyes: Reports: No symptoms Ears, Nose, Mouth, Throat: Reports: No symptoms Respiratory: Reports: No symptoms Cardiac: Reports: No symptoms GI: Reports: No symptoms : Reports: No symptoms Musculoskeletal: Reports: No symptoms Skin: Reports: No symptoms Neurological: Reports: Headache Endocrine: Reports: No symptoms Hematologic/Lymphatic: Reports: No symptoms All Other Systems: Reviewed and Negative Past Medical History - Past Medical History Previously Healthy: Yes Endocrine: Reports: Hypothyroid Cardiovascular: Reports: Hypertension Respiratory: Reports: COPD, Asthma Hematological: Reports: Anemia Gastrointestinal: Reports: GERD (nexium ), Pancreatitis (stents with pancreatitis-chronic pancreatitis) Genitourinary: Reports: None Neuro/Psych: Reports: Migraine, Seizure, Anxiety. Denies: Depression ( fluoxetine) Musculoskeletal: Reports: Arthritis, Back Pain, Other (soma phenergan) Cancer: Reports: None Last Menstrual Period: none Other Pertinent Past Medical History: Chronic back pain ,intrathecal pain pump and removal MEDIPORT - Surgical History General Surgical History: Reports: Hysterectomy (PARTIAL HYSTERECTOMY 2009), C- section, Cholecystectomy, Tonsillectomy, Adenoidectomy, Orthopedic (bilat. feet surg;RIGHT AND LEFT FOOT SURGERY), Other (stents with pancreatitis-chronic pancreatitis, MEDIPORT ) - Family History Family History: Reports: None - Social History Smoking Status: Never smoker Hx Substance Use: No Alcohol Screening: Occasionally - Immunizations Influenza Vaccine within 12 Months: No Pneumococcal Vaccine up to Date: No Physical Exam - Physical Exam Appearance: Well-appearing, No pain distress, Well-nourished Eyes: PAULINO, EOMI, Conjunctiva clear ENT: Ears normal, Nose normal, Oropharynx normal Respiratory: Airway patent, Breath sounds clear, Breath sounds equal, Respirations nonlabored Cardiovascular: RRR, Pulses normal, No rub, No murmur GI/: Soft, Nontender, No masses, Bowel sounds normal, No Organomegaly Musculoskeletal: Normal strength, ROM intact, No edema, No calf tenderness Skin: Warm, Dry, Normal color Neurological: Sensation intact, Motor intact, Reflexes intact, Cranial nerves intact, Alert, Oriented Psychiatric: Affect appropriate, Mood appropriate Critical Care Note - Critical Care Note Total Time (mins): 0 Course - Course Orders, Labs, Meds: Orders Category Date Time Status Morphine Sulfate [Morphine 10 mg/ml Syringe] MEDS 10/11/17 14:37 Stat 8 mg IM ONCE STA Ondansetron HCl/Pf [Zofran 4 mg/2 ml] MEDS 10/11/17 14:38 Stat 8 mg IM ONCE STA Medications Discontinued Medications Generic Name Dose Route Start Last Admin Trade Name Freq PRN Reason Stop Dose Admin Morphine Sulfate 8 mg 10/11/17 14:37 Morphine 10 Mg/Ml Syringe IM 10/11/17 14:38 ONCE STA Vital Signs: Temp Pulse Resp BP Pulse Ox 10/11/17 14:26 97.4 F L 120 H 20 133/93 H 92 L Departure - Departure Time of Disposition: 15:00 Disposition: HOME SELF-CARE Discharge Problem: Headache Migraine Qualifiers: Migraine type: unspecified Status migrainosus presence: without status migrainosus Intractability: not intractable Qualified Code(s): G43.909 - Migraine, unspecified, not intractable, without status migrainosus Condition: Good Pt referred to PMD for follow-up: Yes IPMP verified?: No Allergies/Adverse Reactions: Allergies latex Allergy (Verified 10/11/17 14:31) divalproex sodium [From Depakote] Adverse Reaction (Verified 10/11/17 14:31) ketorolac [From Toradol] Adverse Reaction (Verified 10/11/17 14:31) metoclopramide HCl [From Reglan] Adverse Reaction (Verified 10/11/17 14:31) Home Medications: Ambulatory Orders Carisoprodol [Soma] 350 mg PO PRN PRN 02/02/15 Amitriptyline HCl [Elavil] 100 mg PO DAILY 06/27/16 Doxepin HCl [Sinequan] 25 mg PO BEDTIME 08/01/16 Topiramate [Topamax] 200 mg PO BID 08/08/17 Esomeprazole Magnesium [Nexium 24hr] 20 mg PO BID PRN 10/01/17
== END 2017-10-11 15:04 | disposition home or self-care (01) ==
LOC: ED 14:26
DX: G43.909 Migraine, unspecified, not intractable, without status migrainosus (principal); I10 Essential (primary) hypertension; Z79.899 Other long term (current) drug therapy
CPT/HCPCS: 96372; 99282

== ENCOUNTER 2017-11-19 16:18 | Outpatient (CLI) | END 2017-11-19 16:19 | disposition home or self-care (01) | LOC: FCC-LAB 16:18 | PROVIDERS: ATTEND Family Medicine | DX: Z86.2 Personal history of diseases of the blood and blood-forming organs and certain disorders involving the immune mechanism (principal) | CPT/HCPCS: 36415; 84439; 84443; 85025 ==

== ENCOUNTER 2017-11-20 12:53 | Outpatient (CLI) | END 2017-11-20 12:54 | disposition home or self-care (01) | LOC: CAR 12:53 | PROVIDERS: ATTEND Family Medicine | DX: J45.909 Unspecified asthma, uncomplicated (principal); R06.02 Shortness of breath ==

== ENCOUNTER 2017-12-18 15:45 | Emergency (ER) ==
[2017-12-18 15:53] VITALS: BP 143/94; TEMP 99.3; BMI 34.2
[2017-12-18] MEDS ORDERED: STADOL IM STA (16:29)
[2017-12-18] MEDS ORDERED: PHENERGAN 25 MG/ML VIAL IM STA (16:31)
[2017-12-18] MEDS ORDERED: BENADRYL IM STA (16:32)
--- NOTE | 2017-12-18 16:32 | ED.PDOC ---
General ED Provider: Dr. FATOU SMITH Chief Complaint: Headache Stated Complaint: Migraine HAYNES Time Seen by Physician: 16:28 Mode of Arrival: Walk-In Information Source: Patient Primary Care Provider: DEANNE SMITH Nursing and Triage Documentation Reviewed and Agree: Yes Does patient meet sepsis criteria?: No System Inflammatory Response Syndrome: Not Applicable Sepsis Protocol: For patient's 13 years and over: Temp is 96.8 and below OR 101 and greater Pulse >90 BPM Resp >20/minute Acutely Altered Mental Status Are patient's symptoms suggestive of a new infection, such as: -Pneumonia -Skin, Soft Tissue -Endocarditis -UTI -Bone, Joint Infection -Implantable Device -Acute Abdominal Infection -Wound Infection -Meningitis -Blood Stream Catheter Infection -Unknown Review of Systems - Review Of Systems Constitutional: Reports: Malaise Eyes: Reports: Photophobia Ears, Nose, Mouth, Throat: Reports: No symptoms Respiratory: Reports: No symptoms. Denies: Cough Cardiac: Reports: No symptoms. Denies: Chest pain GI: Reports: Nausea, Vomiting (with usual Migrain presentation) Neurological: Reports: No symptoms All Other Systems: Reviewed and Negative Past Medical History - Past Medical History Previously Healthy: Yes Endocrine: Reports: Hypothyroid Cardiovascular: Reports: Hypertension Respiratory: Reports: COPD, Asthma Hematological: Reports: Anemia Gastrointestinal: Reports: GERD (nexium ), Pancreatitis (stents with pancreatitis-chronic pancreatitis) Genitourinary: Reports: None Neuro/Psych: Reports: Migraine, Seizure, Anxiety. Denies: Depression ( fluoxetine) Musculoskeletal: Reports: Arthritis, Back Pain, Other (soma phenergan) Cancer: Reports: None Last Menstrual Period: NA Other Pertinent Past Medical History: Chronic back pain ,intrathecal pain pump and removal MEDIPORT - Surgical History General Surgical History: Reports: Hysterectomy (PARTIAL HYSTERECTOMY 2009), C- section, Cholecystectomy, Tonsillectomy, Adenoidectomy, Orthopedic (bilat. feet surg;RIGHT AND LEFT FOOT SURGERY), Other (stents with pancreatitis-chronic pancreatitis, MEDIPORT ) - Family History Family History: Reports: None - Social History Smoking Status: Never smoker Hx Substance Use: No Alcohol Screening: Occasionally - Immunizations Tetanus Shot up to Date: Yes Influenza Vaccine within 12 Months: No Pneumococcal Vaccine up to Date: No Physical Exam - Physical Exam Appearance: Ill-appearing Ill-appearing: Mild Pain Distress: Mild Eyes: PAULINO, EOMI, Right pupil size (6 mm), Left pupil size (6 mm) Neck: Supple (Chin to chest normal) Respiratory: Airway patent, Respirations nonlabored Skin: Warm, Dry, Normal color Neurological: Sensation intact, Motor intact, Alert, Oriented Psychiatric: Affect appropriate, Mood appropriate Critical Care Note - Critical Care Note Total Time (mins): 20 Course - Course Orders, Labs, Meds: Orders Category Date Time Status Butorphanol Tartrate [Stadol] MEDS 12/18/17 16:29 Discontinued 2 mg IM ONCE STA Diphenhydramine Inj [Benadryl] MEDS 12/18/17 16:32 Discontinued 25 mg IM ONCE STA Promethazine HCl [Phenergan 25 mg/ml Vial] MEDS 12/18/17 16:31 Discontinued 25 mg IM ONCE STA Medications Discontinued Medications Generic Name Dose Route Start Last Admin Trade Name Freq PRN Reason Stop Dose Admin Butorphanol Tartrate 2 mg 12/18/17 16:29 12/18/17 16:43 Stadol IM 12/18/17 16:30 2 mg ONCE STA Administration Diphenhydramine HCl 25 mg 12/18/17 16:32 12/18/17 16:46 Benadryl IM 12/18/17 16:33 25 mg ONCE STA Administration Promethazine HCl 25 mg 12/18/17 16:31 12/18/17 16:47 Phenergan 25 Mg/Ml Vial IM 12/18/17 16:32 25 mg ONCE STA Administration Vital Signs: Temp Pulse Resp BP Pulse Ox 12/18/17 15:46 99.3 F 114 H 16 143/94 H 92 L Departure - Departure Time of Disposition: 17:19 Disposition: HOME SELF-CARE Discharge Problem: Migraine Qualifiers: Migraine type: unspecified Instructions: Migraine Headache (ED) Condition: Good Pt referred to PMD for follow-up: Yes (Call for appointment) IPMP verified?: No (No narcotic prescribed) Additional Instructions: Take your usual medications; follow up with primary care provider. Allergies/Adverse Reactions: Allergies latex Allergy (Verified 12/18/17 15:54) divalproex sodium [From Depakote] Adverse Reaction (Verified 12/18/17 15:54) ketorolac [From Toradol] Adverse Reaction (Verified 12/18/17 15:54) metoclopramide HCl [From Reglan] Adverse Reaction (Verified 12/18/17 15:54) Home Medications: Ambulatory Orders Carisoprodol [Soma] 350 mg PO PRN PRN 02/02/15 Amitriptyline HCl [Elavil] 100 mg PO DAILY 06/27/16 Esomeprazole Magnesium [Nexium 24hr] 20 mg PO BID PRN 10/01/17 Hydrocodone/Acetaminophen [[place] 5-325 Tablet] 1 each PO Q6HR PRN 10/29/17 Amitriptyline HCl 50 mg PO DAILY 12/13/17 Disposition Discussed With: Patient
== END 2017-12-18 17:25 | disposition home or self-care (01) ==
LOC: ED 15:45
DX: G43.909 Migraine, unspecified, not intractable, without status migrainosus (principal)
CPT/HCPCS: 96372; 99282

== ENCOUNTER 2017-12-23 16:00 | Outpatient (CLI) | END 2017-12-23 16:01 | disposition home or self-care (01) | LOC: FCC-LAB 16:00 | PROVIDERS: ATTEND Family Medicine | DX: R11.2 Nausea with vomiting, unspecified (principal) | CPT/HCPCS: 36415; 80053; 85025 ==

== ENCOUNTER 2017-12-24 11:31 | Outpatient (CLI) | END 2017-12-24 11:32 | disposition home or self-care (01) | LOC: FCC-LAB 11:31 | PROVIDERS: ATTEND Family Medicine | DX: R11.2 Nausea with vomiting, unspecified (principal) | CPT/HCPCS: 36415; 87493 ==

== ENCOUNTER 2017-12-29 14:09 | Emergency (ER) ==
[2017-12-29 14:09] VITALS: BMI 34.2
[2017-12-29 14:12] VITALS: BP 142/81; TEMP 97.7
[2017-12-29] MEDS ORDERED: BENADRYL IM STA (14:21)
[2017-12-29] MEDS ORDERED: STADOL IM STA (14:21)
[2017-12-29] MEDS ORDERED: PHENERGAN 25 MG/ML VIAL IM STA (14:21)
--- NOTE | 2017-12-29 14:24 | ED.PDOC ---
General ED Provider: Dr. RIKA WILLIAM-ER Chief Complaint: Headache Stated Complaint: george got a migraine Time Seen by Physician: 14:22 Mode of Arrival: Walk-In Information Source: Patient Exam Limitations: No limitations Primary Care Provider: DEANNE SMITH Nursing and Triage Documentation Reviewed and Agree: Yes Does patient meet sepsis criteria?: No System Inflammatory Response Syndrome: Not Applicable Sepsis Protocol: For patient's 13 years and over: Temp is 96.8 and below OR 101 and greater Pulse >90 BPM Resp >20/minute Acutely Altered Mental Status Are patient's symptoms suggestive of a new infection, such as: -Pneumonia -Skin, Soft Tissue -Endocarditis -UTI -Bone, Joint Infection -Implantable Device -Acute Abdominal Infection -Wound Infection -Meningitis -Blood Stream Catheter Infection -Unknown Neurological Complaint Exam - Headache Complaint/Exam Onset: Gradual Duration: several hours Symptoms Are: Still present Timing: Constant Worst Headache Ever: No Initial Severity: Mild Current Severity: Moderate Location: Diffuse Character: Reports: Dull, Throbbing, Pressure, Typical headache, Migraine Aggravating: Reports: Bright lights Alleviating: Reports: None Associated Signs and Symptoms: Reports: Nausea. Denies: Dizziness, Seizure Related History: Reports: Similar episode. Denies: Recent trauma, Remote trauma Temporal Arteritis Risk Factors: Reports: Female, Normal Head CT Within Last 12 Months: Yes Fundoscopic Exam: Present: Normal Findings Papilledema Present: No Temporal Artery Tenderness: Present: None Sinus Tenderness: Present: None TMJ Tenderness: Present: None Glascow Coma Scale (see protocol): 15 Meningeal Signs Positive: No Pain on Passive Flexion-Positive Kernig's: No ROM Limited In: No Limitiations Focal Weakness: Present: None Focal Sensory Loss: Present: None Gait: Normal Nystagmus Present: No Gag Reflex Present: Yes [id number]: Normal Findings Romberg Test Positive: No Babinski Sign: Negative Right, Negative Left Heel to Toe Normal: Yes Differential Diagnoses: Migraine Review of Systems - Review Of Systems Constitutional: Reports: No symptoms Eyes: Reports: No symptoms Ears, Nose, Mouth, Throat: Reports: No symptoms Respiratory: Reports: No symptoms Cardiac: Reports: No symptoms GI: Reports: Nausea : Reports: No symptoms Musculoskeletal: Reports: No symptoms Skin: Reports: No symptoms Neurological: Reports: Headache Endocrine: Reports: No symptoms Hematologic/Lymphatic: Reports: No symptoms All Other Systems: Reviewed and Negative Past Medical History - Past Medical History Previously Healthy: Yes Endocrine: Reports: Hypothyroid Cardiovascular: Reports: Hypertension Respiratory: Reports: COPD, Asthma Hematological: Reports: Anemia Gastrointestinal: Reports: GERD (nexium ), Pancreatitis (stents with pancreatitis-chronic pancreatitis) Genitourinary: Reports: None Neuro/Psych: Reports: Migraine, Seizure, Anxiety. Denies: Depression ( fluoxetine) Musculoskeletal: Reports: Arthritis, Back Pain, Other (soma phenergan) Cancer: Reports: None Last Menstrual Period: hysterectomy Other Pertinent Past Medical History: Chronic back pain ,intrathecal pain pump and removal MEDIPORT - Surgical History General Surgical History: Reports: Hysterectomy (PARTIAL HYSTERECTOMY 2009), C- section, Cholecystectomy, Tonsillectomy, Adenoidectomy, Orthopedic (bilat. feet surg;RIGHT AND LEFT FOOT SURGERY), Other (stents with pancreatitis-chronic pancreatitis, MEDIPORT ) - Family History Family History: Reports: None - Social History Smoking Status: Never smoker Hx Substance Use: No Alcohol Screening: Occasionally - Immunizations Influenza Vaccine within 12 Months: No Pneumococcal Vaccine up to Date: No Physical Exam - Physical Exam Appearance: Well-appearing, No pain distress, Well-nourished Pain Distress: Moderate Eyes: PAULINO, EOMI, Conjunctiva clear ENT: Ears normal, Nose normal, Oropharynx normal Neck: Supple Respiratory: Airway patent, Breath sounds clear, Breath sounds equal, Respirations nonlabored Cardiovascular: RRR, Pulses normal, No rub, No murmur GI/: Soft, Nontender, No masses, Bowel sounds normal, No Organomegaly Musculoskeletal: Normal strength Skin: Warm Neurological: Sensation intact, Motor intact, Reflexes intact, Cranial nerves intact, Alert, Oriented Psychiatric: Affect appropriate, Mood appropriate Re-Evaluation - Re-Evaluation Time of Re-Evaluation: 15:00 Status: Improved Vital Signs Stable: Yes Pain Level: 1 Appearance: NAD Lungs: Clear Skin: Warm and Dry Neuro: Alert and Oriented X3 CV: RRR Critical Care Note - Critical Care Note Total Time (mins): 0 Course - Course Orders, Labs, Meds: Orders Category Date Time Status Butorphanol Tartrate [Stadol] MEDS 12/29/17 14:21 Discontinued 2 mg IM ONCE STA Diphenhydramine Inj [Benadryl] MEDS 12/29/17 14:21 Discontinued 50 mg IM ONCE STA Promethazine HCl [Phenergan 25 mg/ml Vial] MEDS 12/29/17 14:21 Discontinued 25 mg IM ONCE STA Medications Discontinued Medications Generic Name Dose Route Start Last Admin Trade Name Blanca PRN Reason Stop Dose Admin Butorphanol Tartrate 2 mg 12/29/17 14:21 Stadol IM 12/29/17 14:22 ONCE STA Diphenhydramine HCl 50 mg 12/29/17 14:21 Benadryl IM 12/29/17 14:22 ONCE STA Promethazine HCl 25 mg 12/29/17 14:21 Phenergan 25 Mg/Ml Vial IM 12/29/17 14:22 ONCE STA she says this cabezas is like the other migraine cabezas--no more severe in nature than usual cabezas Vital Signs: Temp Pulse Resp BP Pulse Ox 12/29/17 14:09 97.7 F 110 H 16 142/81 H 92 L Departure - Departure Time of Disposition: 15:10 Disposition: HOME SELF-CARE Discharge Problem: Migraine Qualifiers: Migraine type: unspecified Status migrainosus presence: without status migrainosus Intractability: not intractable Qualified Code(s): G43.909 - Migraine, unspecified, not intractable, without status migrainosus Instructions: Migraine Headache (ED) Condition: Good Pt referred to PMD for follow-up: No IPMP verified?: No Additional Instructions: f/u with pcp Allergies/Adverse Reactions: Allergies latex Allergy (Verified 12/29/17 14:13) divalproex sodium [From Depakote] Adverse Reaction (Verified 12/29/17 14:13) ketorolac [From Toradol] Adverse Reaction (Verified 12/29/17 14:13) metoclopramide HCl [From Reglan] Adverse Reaction (Verified 12/29/17 14:13) Home Medications: Ambulatory Orders Carisoprodol [Soma] 350 mg PO PRN PRN 02/02/15 Esomeprazole Magnesium [Nexium 24hr] 20 mg PO BID PRN 10/01/17 Hydrocodone/Acetaminophen [[place] 5-325 Tablet] 1 each PO Q6HR PRN 10/29/17 Amitriptyline HCl 50 mg PO TID 12/13/17 Disposition Discussed With: Patient, Family
== END 2017-12-29 15:05 | disposition home or self-care (01) ==
LOC: ED 14:09
DX: G43.909 Migraine, unspecified, not intractable, without status migrainosus (principal)
CPT/HCPCS: 96372; 99283

== ENCOUNTER 2018-01-08 17:33 | Emergency (ER) ==
[2018-01-08 17:33] VITALS: BMI 34.2
[2018-01-08 17:36] VITALS: BP 127/94; TEMP 97.5
[2018-01-08] MEDS ORDERED: MORPHINE 2 MG/ML SYRINGE IM STA (17:52)
[2018-01-08] MEDS ORDERED: ZOFRAN 4 MG/2 ML IM STA (17:52)
--- NOTE | 2018-01-08 17:55 | ED.PDOC ---
General ED Provider: Dr. JOE LIU Chief Complaint: Headache Stated Complaint: chronic headache Time Seen by Physician: 17:37 (seen with RIGO RIVERA R.N. AND DORIS at all times ) Mode of Arrival: Walk-In Information Source: Patient Exam Limitations: No limitations Primary Care Provider: DEANNE SMITH Nursing and Triage Documentation Reviewed and Agree: Yes Does patient meet sepsis criteria?: No System Inflammatory Response Syndrome: Not Applicable Sepsis Protocol: For patient's 13 years and over: Temp is 96.8 and below OR 101 and greater Pulse >90 BPM Resp >20/minute Acutely Altered Mental Status Are patient's symptoms suggestive of a new infection, such as: -Pneumonia -Skin, Soft Tissue -Endocarditis -UTI -Bone, Joint Infection -Implantable Device -Acute Abdominal Infection -Wound Infection -Meningitis -Blood Stream Catheter Infection -Unknown Neurological Complaint Exam - Headache Complaint/Exam Onset: Gradual Duration: 1 day Symptoms Are: Still present Timing: Intermittent Episodes Lasting: Hours Worst Headache Ever: No Initial Severity: Moderate Current Severity: Moderate Location: Frontal, Temporal Character: Reports: Throbbing Aggravating: Reports: Bright lights Alleviating: Reports: Rest Associated Signs and Symptoms: Denies: Dizziness, Seizure, Nausea, Vomiting, Sinus pressure, Fever, Neck pain, Neck stiffness, Decreased LOC, Visual changes Related History: Reports: Similar episode Related Surgical History: Reports: None SAH Risk Factors: Reports: None Meningitis Risk Factors: Reports: None SDH Risk Factors: Reports: None Temporal Arteritis Risk Factors: Reports: Female, Normal Head CT Within Last 12 Months: Yes Fundoscopic Exam: Present: Normal Findings Papilledema Present: No Temporal Artery Tenderness: Present: None Sinus Tenderness: Present: None TMJ Tenderness: Present: None Glascow Coma Scale (see protocol): 15 Meningeal Signs Positive: No ROM Limited In: No Limitiations Focal Weakness: Present: None Focal Sensory Loss: Present: None Gait: Normal Gag Reflex Present: Yes Differential Diagnoses: Migraine Review of Systems - Review Of Systems Constitutional: Reports: No symptoms Eyes: Reports: No symptoms Ears, Nose, Mouth, Throat: Reports: No symptoms Respiratory: Reports: No symptoms Cardiac: Reports: No symptoms GI: Reports: No symptoms : Reports: No symptoms Musculoskeletal: Reports: No symptoms Skin: Reports: No symptoms Neurological: Reports: Headache Endocrine: Reports: No symptoms Hematologic/Lymphatic: Reports: No symptoms All Other Systems: Reviewed and Negative Past Medical History - Past Medical History Previously Healthy: Yes Endocrine: Reports: Hypothyroid Cardiovascular: Reports: Hypertension Respiratory: Reports: COPD, Asthma Hematological: Reports: Anemia Gastrointestinal: Reports: GERD (nexium ), Pancreatitis (stents with pancreatitis-chronic pancreatitis) Genitourinary: Reports: None Neuro/Psych: Reports: Migraine, Seizure, Anxiety. Denies: Depression ( fluoxetine) Musculoskeletal: Reports: Arthritis, Back Pain, Other (soma phenergan) Cancer: Reports: None Last Menstrual Period: none Other Pertinent Past Medical History: Chronic back pain ,intrathecal pain pump and removal MEDIPORT - Surgical History General Surgical History: Reports: Hysterectomy (PARTIAL HYSTERECTOMY 2009), C- section, Cholecystectomy, Tonsillectomy, Adenoidectomy, Orthopedic (bilat. feet surg;RIGHT AND LEFT FOOT SURGERY), Other (stents with pancreatitis-chronic pancreatitis, MEDIPORT ) - Family History Family History: Reports: None - Social History Smoking Status: Never smoker Hx Substance Use: No Alcohol Screening: Occasionally - Immunizations Influenza Vaccine within 12 Months: No Pneumococcal Vaccine up to Date: No Physical Exam - Physical Exam Appearance: Well-appearing, No pain distress, Well-nourished Eyes: PAULINO, EOMI, Conjunctiva clear ENT: Ears normal, Nose normal, Oropharynx normal Respiratory: Airway patent, Breath sounds clear, Breath sounds equal, Respirations nonlabored Cardiovascular: RRR, Pulses normal, No rub, No murmur GI/: Soft, Nontender, No masses, Bowel sounds normal, No Organomegaly Musculoskeletal: Normal strength, ROM intact, No edema, No calf tenderness Skin: Warm, Dry, Normal color Neurological: Sensation intact, Motor intact, Reflexes intact, Cranial nerves intact, Alert, Oriented Psychiatric: Affect appropriate, Mood appropriate Critical Care Note - Critical Care Note Total Time (mins): 0 Course - Course Orders, Labs, Meds: Orders Category Date Time Status Morphine Sulfate [Morphine 2 mg/ml Syringe] MEDS 01/08/18 17:52 Stat 4 mg IM ONCE STA Ondansetron HCl/Pf [Zofran 4 mg/2 ml] MEDS 01/08/18 17:52 Stat 4 mg IM ONCE STA Vital Signs: Temp Pulse Resp BP Pulse Ox 01/08/18 17:34 97.5 F L 130 H 18 127/94 H 93 L Departure - Departure Time of Disposition: 17:55 Disposition: HOME SELF-CARE Discharge Problem: Headache Migraine Qualifiers: Migraine type: unspecified Status migrainosus presence: without status migrainosus Intractability: not intractable Qualified Code(s): G43.909 - Migraine, unspecified, not intractable, without status migrainosus Instructions: Migraine Headache (ED) Condition: Good Pt referred to PMD for follow-up: Yes IPMP verified?: No Additional Instructions: Please call your Family Physician as soon as possible to schedule a follow-up appointment. Allergies/Adverse Reactions: Allergies latex Allergy (Verified 01/08/18 17:37) divalproex sodium [From Depakote] Adverse Reaction (Verified 01/08/18 17:37) ketorolac [From Toradol] Adverse Reaction (Verified 01/08/18 17:37) metoclopramide HCl [From Reglan] Adverse Reaction (Verified 01/08/18 17:37) Home Medications: Ambulatory Orders Carisoprodol [Soma] 350 mg PO PRN PRN 02/02/15 Esomeprazole Magnesium [Nexium 24hr] 20 mg PO BID PRN 10/01/17 Hydrocodone/Acetaminophen [[place] 5-325 Tablet] 1 each PO Q6HR PRN 10/29/17 Amitriptyline HCl 50 mg PO TID 12/13/17
== END 2018-01-08 18:21 | disposition home or self-care (01) ==
LOC: ED 17:33
DX: R51 Headache (principal); G43.909 Migraine, unspecified, not intractable, without status migrainosus
CPT/HCPCS: 96372; 99283

== ENCOUNTER 2018-02-18 16:38 | Outpatient (CLI) | END 2018-02-18 16:39 | disposition home or self-care (01) | LOC: FCC-LAB 16:38 | PROVIDERS: ATTEND Family Medicine | DX: F43.0 Acute stress reaction (principal); G47.00 Insomnia, unspecified; R68.89 Other general symptoms and signs; R63.5 Abnormal weight gain; F41.9 Anxiety disorder, unspecified; K92.1 Melena; R74.8 Abnormal levels of other serum enzymes; E87.6 Hypokalemia | CPT/HCPCS: 36415; 80053; 84443 ==